=== PATIENT | male | born 1945 | race Caucasian/White ===

== ENCOUNTER 2018-10-28 20:36 | Emergency (ER) | payer MEDICARE, OTHER ==
[~2018-10-28] VITALS: Ht 172.7 cm; Wt 88.9 kg
--- NOTE | 2018-10-28 21:26 | ED Cardiac General ---
History of Present Illness General Chief Complaint: Cardiac/General Problems Stated Complaint: LOW BP Source: patient Exam Limitations: no limitations History of Present Illness Date Seen by Provider: Oct 28, 2018 Time Seen by Provider: 21:15 Initial Comments 73-year-old male with history of coronary disease, status post CABG several years ago, presents with concerns that his blood pressure is been running low at home. He has not had any weakness, chest pain, palpitations, visual or neurologic symptoms. He is not having blood pressure medication changes recently. He states his blood pressure cuff is old and may be inaccurate. Denies any significant edema or other symptoms. Allergies and Home Medications Allergies Uncoded Allergies: PENICILLIN (Allergy, Unknown, 10/28/18) Patient Home Medication List Home Medication List Reviewed: Yes Review of Systems Review of Systems Constitutional: no symptoms reported EENTM: No Symptoms Reported Respiratory: No Symptoms Reported, See HPI Cardiovascular: No Symptoms Reported, See HPI Gastrointestinal: No Symptoms Reported, See HPI Genitourinary: No Symptoms Reported, See HPI Psychiatric/Neurological: No Symptoms Reported, See HPI Endocrine: No Symptoms Reported, See HPI Hematologic/Lymphatic: No Symptoms Reported, See HPI Past Xftlbzb-Pawmlt-Iexqof Hx Past Med/Social Hx: Reviewed Nursing Past Med/Soc Hx Patient Social History Recent Foreign Travel: No Contact w/Someone Who Travel: No Physical Exam Vital Signs Vital Signs - First Documented 10/28/18 21:14 Temp 97.6 Pulse 77 Resp 8 B/P (MAP) 129/46 (73) Pulse Ox 96 O2 Delivery Room Air Capillary Refill : Height, Weight, BMI Height: '" Weight: lbs. oz. kg; BMI Method: General Appearance: No Apparent Distress, WD/WN HEENT: PERRL/EOMI, TMs Normal, Normal ENT Inspection, Pharynx Normal Neck: Full Range of Motion, Normal Inspection, Non Tender Respiratory: Chest Non Tender, Lungs Clear, Normal Breath Sounds, No Accessory Muscle Use, No Respiratory Distress Cardiovascular: Regular Rate, Rhythm, No Edema, No Gallop, No JVD, No Murmur, Normal Peripheral Pulses, Other (healed median sternotomy scar) Gastrointestinal: Normal Bowel Sounds, No Organomegaly, No Pulsatile Mass, Non Tender, Soft Extremity: Normal Capillary Refill, Normal Inspection, Normal Range of Motion, Non Tender, No Calf Tenderness, No Pedal Edema Neurologic/Psychiatric: Alert, Oriented x3, No Motor/Sensory Deficits, Normal Mood/Affect Skin: Normal Color, Warm/Dry Lymphatic: No Adenopathy Progress/Results/Core Measures Results/Orders Lab Results Laboratory Tests Test 10/28/18 21:35 Range/Units White Blood Count 5.8 4.3-11.0 10^3/uL Red Blood Count 3.27 L 4.35-5.85 10^6/uL Hemoglobin 11.1 L 13.3-17.7 G/DL Hematocrit 33 L 40-54 % Mean Corpuscular Volume 99 80-99 FL Mean Corpuscular Hemoglobin 34 25-34 PG Mean Corpuscular Hemoglobin Concent 34 32-36 G/DL Red Cell Distribution Width 13.2 10.0-14.5 % Platelet Count 307 130-400 10^3/uL Mean Platelet Volume 9.7 7.4-10.4 FL Neutrophils (%) (Auto) 34 L 42-75 % Lymphocytes (%) (Auto) 44 12-44 % Monocytes (%) (Auto) 15 H 0-12 % Eosinophils (%) (Auto) 6 0-10 % Basophils (%) (Auto) 1 0-10 % Neutrophils # (Auto) 2.0 1.8-7.8 X 10^3 Lymphocytes # (Auto) 2.5 1.0-4.0 X 10^3 Monocytes # (Auto) 0.9 0.0-1.0 X 10^3 Eosinophils # (Auto) 0.3 0.0-0.3 10^3/uL Basophils # (Auto) 0.1 0.0-0.1 10^3/uL Sodium Level 135 135-145 MMOL/L Potassium Level 4.3 3.6-5.0 MMOL/L Chloride Level 98 98-107 MMOL/L Carbon Dioxide Level 23 21-32 MMOL/L Anion Gap 14 5-14 MMOL/L Blood Urea Nitrogen 21 H 7-18 MG/DL Creatinine 1.27 0.60-1.30 MG/DL Estimat Glomerular Filtration Rate 55 BUN/Creatinine Ratio 17 Glucose Level 106 H 70-105 MG/DL Calcium Level 9.3 8.5-10.1 MG/DL Corrected Calcium 9.1 8.5-10.1 MG/DL Total Bilirubin 0.4 0.1-1.0 MG/DL Aspartate Amino Transf (AST/SGOT) 20 5-34 U/L Alanine Aminotransferase (ALT/SGPT) 11 0-55 U/L Alkaline Phosphatase 52 40-136 U/L Troponin T 16 H <=15 NG/L Pro-B-Type Natriuretic Peptide 740.0 H <75.0 PG/ML Total Protein 6.6 6.4-8.2 GM/DL Albumin 4.3 3.2-4.5 GM/DL My Orders Orders - SHEMAR PAUL MD Chest 1 View Ap/Pa Only (10/28/18 21:21) Ekg Tracing (10/28/18 21:21) Monitor-Rhythm Ecg Trace Only (10/28/18:) Cbc With Automated Diff (10/28/18:) Comprehensive Metabolic Panel (10/28/18:) Troponin T (10/28/18:) Probnp Fs (10/28/18:) Vital Signs/I&O 10/28/18 21:14 Temp 97.6 Pulse 77 Resp 8 B/P (MAP) 129/46 (73) Pulse Ox 96 O2 Delivery Room Air Progress Progress Note : Time: 21:25 Progress Note Initial blood pressure is unremarkable here. We'll obtain cardiac testing and closely monitor his blood pressure for any variations. I discussed plan with patient who understands and agrees. 8 patient's blood pressures remained unremarkable. I reviewed lab results with him. Due to his elevated BNP and not knowing that this is his chronic normal, I recommended admission. He declined this and understands the possible serious consequences of his decision. He is alert and oriented and capable of making this decision. Initial ECG Impression Date: Oct 28, 2018 Initial ECG Impression Time: 21:26 Initial ECG Rate: 77 Initial ECG Rhythm: Normal Sinus Initial ECG Intervals: Normal Initial ECG Comparisson: No Previous ECG Available Comment incomplete LBBB, nonspecific ST changes. PVCs noted, no couplets. JDO Diagnostic Imaging Diagonstic Imaging: Xray Plain Films/CT/US/NM/MRI: chest Comments CABG changes but no acute changes, per radiologist. Departure Impression Primary Impression: CAD (coronary artery disease) Qualified Codes: I25.810 - Atherosclerosis of coronary artery bypass graft(s) without angina pectoris Additional Impressions: Elevated brain natriuretic peptide (BNP) level Low blood pressure, not hypotension Low blood pressure reading Disposition: 01 HOME, SELF-CARE Condition: Stable Departure-Patient Inst. Decision time for Depature: 22:50 Referrals: NOHEMY HARRY HEARING EXAMINER (PCP/Family) Primary Care Physician Patient Instructions: Coronary Heart Disease (DC), CHF Add. Discharge Instructions: If your mind is changed about going to the hospital, please return. Be sure he follow up with your primary care in the next day or 2 as we discussed. All discharge instructions reviewed with patient and/or family. Voiced understanding. SHEMAR PAUL MD Oct 28, 2018 21:25
--- NOTE | 2018-10-28 21:58 | Diagnostic Imaging Report ---
EXAMINATION: Single view chest. INDICATION: Hypertension. FINDINGS: The patient is status post previous sternotomy and bypass grafting. Central pulmonary vascularity appears normal without evidence of failure. There is no consolidation or evidence of effusion. There is no pneumothorax. There is no acute or suspicious osseous abnormality. IMPRESSION: Previous operative changes of sternotomy and coronary artery bypass grafting. Pulmonary vascularity appears normal without evidence of failure. No acute cardiopulmonary process is evident. Dictated by: Dictated on workstation # [id number]
[2018-10-28 22:00] LABS: HEMOGLOBIN 11.1 G/DL (13.3-17.7); MEAN CORPUSCULAR HEMOGLOBIN 34 PG (25-34); WHITE BLOOD COUNT 5.8 10^3/uL (4.3-11.0)
[2018-10-28 22:01] LABS: BASOPHILS # (AUTO) 0.1 10^3/uL (0.0-0.1); BASOPHILS % (AUTO) 1 % (0-10); EOSINOPHILS # (AUTO) 0.3 10^3/uL (0.0-0.3); EOSINOPHILS % (AUTO) 6 % (0-10); HEMATOCRIT 33 % (40-54); LYMPHOCYTES # (AUTO) 2.5 X 10^3 (1.0-4.0); LYMPHOCYTES % (AUTO) 44 % (12-44); MEAN CORPUSCULAR HGB CONC 34 G/DL (32-36); MEAN CORPUSCULAR VOLUME 99 FL (80-99); MEAN PLATELET VOLUME 9.7 FL (7.4-10.4); MONOCYTES # (AUTO) 0.9 X 10^3 (0.0-1.0); MONOCYTES % (AUTO) 15 % (0-12); NEUTROPHILS % (AUTO) 34 % (42-75); PLATELET COUNT 307 10^3/uL (130-400); RED CELL DISTRIBUTION WIDTH 13.2 % (10.0-14.5)
--- OUTSIDE RECORDS SUMMARY | 2018-10-28 22:20 | XMS REPORT | Continuity of Care Document ---
Author Organization Unknown Address Unknown Allergies There is no data. Medications There is no data. Problems There is no data. Procedures There is no data. Results There is no data. Encounters ACCT No. Visit Date/Time Discharge Status Pt. Type Provider Facility Loc./Unit Complaint [id number] 10/11/2018 08:40:00 10/11/2018 23:59:59 CLS Outpatient [facility]
[2018-10-28 22:29] LABS: BILIRUBIN,TOTAL 0.4 MG/DL (0.1-1.0); CALCIUM 9.3 MG/DL (8.5-10.1); CREATININE SERUM 1.27 MG/DL (0.60-1.30); POTASSIUM 4.3 MMOL/L (3.6-5.0)
[2018-10-28 22:30] LABS: ALBUMIN 4.3 GM/DL (3.2-4.5); TOTAL PROTEIN 6.6 GM/DL (6.4-8.2)
[2018-10-28 23:00] VITALS: BP 134/60
== END 2018-10-28 23:00 | disposition home or self-care (01) ==
LOC: ER FS 20:43
DX: I25.10 Atherosclerotic heart disease of native coronary artery without angina pectoris (principal); R03.1 Nonspecific low blood-pressure reading; R79.89 Other specified abnormal findings of blood chemistry; Z95.1 Presence of aortocoronary bypass graft; Z88.0 Allergy status to penicillin
CPT/HCPCS: 36415; 71045; 80053; 83880; 84484; 85025; 93005; 93041

== ENCOUNTER 2018-11-02 08:46 | Emergency (ER) | payer MEDICARE, OTHER ==
[~2018-11-02] VITALS: Ht 172.7 cm; Wt 88.9 kg
--- OUTSIDE RECORDS SUMMARY | 2018-11-02 08:52 | XMS REPORT | Continuity of Care Document ---
Author Organization Unknown Address Unknown Allergies There is no data. Medications There is no data. Problems There is no data. Procedures There is no data. Results There is no data. Encounters ACCT No. Visit Date/Time Discharge Status Pt. Type Provider Facility Loc./Unit Complaint [id number] 11/01/2018 11:00:00 ACT Outpatient [facility]
[2018-11-02 09:21] VITALS: BP_SYST 124; BP_SYST 136; BP_SYST 143; BP_DIAS 64; BP_DIAS 67; BP_DIAS 71
[2018-11-02 09:27] LABS: BASOPHILS # (AUTO) 0.1 10^3/uL (0.0-0.1); BASOPHILS % (AUTO) 1 % (0-10); EOSINOPHILS # (AUTO) 0.3 10^3/uL (0.0-0.3); EOSINOPHILS % (AUTO) 5 % (0-10); HEMATOCRIT 36 % (40-54); LYMPHOCYTES # (AUTO) 2.2 X 10^3 (1.0-4.0); LYMPHOCYTES % (AUTO) 40 % (12-44); MEAN CORPUSCULAR HEMOGLOBIN 33 PG (25-34); MEAN CORPUSCULAR HGB CONC 34 G/DL (32-36); MEAN CORPUSCULAR VOLUME 99 FL (80-99); MEAN PLATELET VOLUME 9.6 FL (7.4-10.4); MONOCYTES # (AUTO) 0.7 X 10^3 (0.0-1.0); MONOCYTES % (AUTO) 13 % (0-12); NEUTROPHILS # (AUTO) 2.3 X 10^3 (1.8-7.8); NEUTROPHILS % (AUTO) 41 % (42-75); PLATELET COUNT 283 10^3/uL (130-400); WHITE BLOOD COUNT 5.6 10^3/uL (4.3-11.0)
[2018-11-02 09:41] LABS: BAND NEUTROPHILS 2 %; BASOPHILS % (MANUAL) 3 %; EOSINOPHILS % (MANUAL) 3 %; LYMPHOCYTES % (MANUAL) 49 %; MONOCYTES % (MANUAL) 6 %; NEUTROPHILS % (MANUAL) 37 %; RBC MORPH NORMAL
--- NOTE | 2018-11-02 09:45 | ED General ---
General Chief Complaint: General Problems/Pain Stated Complaint: LOW BP Nursing Triage Note: Pt arrived by private vehicle with chief complaint of low blood pressure. Pt stated he took his blood pressure this morning and was 140s/70s and then took it again and was 100/40, so he decided to come to ER. Pt was alert, oriented and ambulatory at [place]. Pt did not take his blood pressure medication this morning. Pt stated he felt fine. Pt stated he brought his medications, but when looking at meds they were in pill box. Called [facility] to have Nohemy Harry APRN's nurse call me about Patient's medications. Jada called and stated pt was taking Furosemide 20mg bid, lisinopril 10mg bid and coreg 6.25 daily. Pt stated this has been going on for 1.5 weeks. Nursing Sepsis Screen: No Definite Risk History of Present Illness Date Seen by Provider: Nov 02, 2018 Time Seen by Provider: 09:20 Initial Comments This is a 73 y/o m with pmhx of CAD, s/p remote CABG, HTN and CHF who presents to the ED concerned about his blood pressure. Takes Furosemide 20mg BID, Carvedilol 6.25 QD and Lisinopril 100mg BID. No recent medication changes. Routinely checks BP BID. Reports that blood pressure has periodically been low during routine checks (80-120 systolic) asymptomatic and on repeat is typically fine. Has been intermittently holding his Lisinopril. Was seen here on 10/28 with similar complaint. Advised to follow up with PCP and has not. No chest pain , no LE edema, no SOB, no dizziness, no generalized weakness. Allergies and Home Medications Allergies Uncoded Allergies: PENICILLIN (Allergy, Unknown, 10/28/18) Patient Home Medication List Home Medication List Reviewed: Yes Review of Systems Review of Systems Constitutional: No chills, No fever, No malaise, No weakness Respiratory: No cough, No short of breath, No wheezing Cardiovascular: No chest pain, No edema, No palpitations Gastrointestinal: No abdominal pain, No constipation, No diarrhea, No loss of appetite, No nausea, No vomiting Genitourinary: No dysuria, No frequency Musculoskeletal: No back pain, No joint pain, No muscle pain Skin: No pruritus, No rash Psychiatric/Neurological: Denies Headache Hematologic/Lymphatic: Denies Easy Bleeding All Other Systems Reviewed Negative Unless Noted: Yes (Negative excepted noted.) Past Mlxvuaw-Xfaioz-Fyfmjb Hx Patient Social History Alcohol Use: Denies Use Recreational Drug Use: No 2nd Hand Smoke Exposure: No Recent Foreign Travel: No Contact w/Someone Who Travel: No Recent Infectious Disease Expo: No Recent Hopitalizations: No Physical Abuse: No Sexual Abuse: No Mistreated: No Fear: No Seasonal Allergies Seasonal Allergies: Yes Past Medical History Surgeries: Yes CABG Respiratory: No Cardiac: Yes Heart Attack, High Cholesterol, Hypertension Neurological: No Genitourinary: No Gastrointestinal: No Musculoskeletal: No Endocrine: No HEENT: No Cancer: No Psychosocial: No Integumentary: No Blood Disorders: No Physical Exam Vital Signs Vital Signs - First Documented 11/02/18 09:08 Temp 98.0 Pulse 72 Resp 20 B/P (MAP) 144/75 (98) Pulse Ox 99 O2 Delivery Room Air Capillary Refill : Less Than 3 Seconds Height, Weight, BMI Height: 5'8.00" Weight: 196lbs. 0oz. [id number]; BMI Method:Stated General Appearance: No Apparent Distress, WD/WN HEENT: PERRL/EOMI Neck: Full Range of Motion, Normal Inspection Respiratory: Chest Non Tender, Normal Breath Sounds, No Accessory Muscle Use, No Respiratory Distress Cardiovascular: Regular Rate, Rhythm, No Edema, No JVD, No Murmur, Normal Peripheral Pulses Gastrointestinal: Normal Bowel Sounds, Non Tender, Soft Back: No Decreased Range of Motion Extremity: Normal Capillary Refill, Normal Range of Motion, No Pedal Edema Neurologic/Psychiatric: Alert, Oriented x3, No Motor/Sensory Deficits Skin: Normal Color Progress/Results/Core Measures Suspected Sepsis Recent Fever Within 48 Hours: No Infection Criteria Present: None New/Unexplained Altered Menta: No Sepsis Screen: No Definite Risk SIRS Temperature:98.0 Pulse: 82 Respiratory Rate: 20 Laboratory Tests 11/02/18 09:15: White Blood Count 5.6 Blood Pressure 143 /71 Mean: 95 Laboratory Tests 11/02/18 09:15: Creatinine 1.02, Platelet Count 283 Results/Orders Lab Results Laboratory Tests Test 11/02/18 09:15 Range/Units White Blood Count 5.6 4.3-11.0 10^3/uL Red Blood Count 3.59 L 4.35-5.85 10^6/uL Hemoglobin 12.0 L 13.3-17.7 G/DL Hematocrit 36 L 40-54 % Mean Corpuscular Volume 99 80-99 FL Mean Corpuscular Hemoglobin 33 25-34 PG Mean Corpuscular Hemoglobin Concent 34 32-36 G/DL Red Cell Distribution Width 13.0 10.0-14.5 % Platelet Count 283 130-400 10^3/uL Mean Platelet Volume 9.6 7.4-10.4 FL Neutrophils (%) (Auto) 41 L 42-75 % Lymphocytes (%) (Auto) 40 12-44 % Monocytes (%) (Auto) 13 H 0-12 % Eosinophils (%) (Auto) 5 0-10 % Basophils (%) (Auto) 1 0-10 % Neutrophils # (Auto) 2.3 1.8-7.8 X 10^3 Lymphocytes # (Auto) 2.2 1.0-4.0 X 10^3 Monocytes # (Auto) 0.7 0.0-1.0 X 10^3 Eosinophils # (Auto) 0.3 0.0-0.3 10^3/uL Basophils # (Auto) 0.1 0.0-0.1 10^3/uL Neutrophils % (Manual) 37 % Lymphocytes % (Manual) 49 % Monocytes % (Manual) 6 % Eosinophils % (Manual) 3 % Basophils % (Manual) 3 % Band Neutrophils 2 % Blood Morphology Comment NORMAL Sodium Level 139 135-145 MMOL/L Potassium Level 4.4 3.6-5.0 MMOL/L Chloride Level 100 98-107 MMOL/L Carbon Dioxide Level 21 21-32 MMOL/L Anion Gap 18 H 5-14 MMOL/L Blood Urea Nitrogen 15 7-18 MG/DL Creatinine 1.02 0.60-1.30 MG/DL Estimat Glomerular Filtration Rate > 60 BUN/Creatinine Ratio 15 Glucose Level 124 H 70-105 MG/DL Calcium Level 9.2 8.5-10.1 MG/DL My Orders Orders - SUE POWER DO Basic Metabolic Panel (11/02/18 09:04) Cbc And Manual Diff (11/02/18 09:04) Orthostatic Vital Signs (Adult (11/02/18 09:04) Vital Signs/I&O 11/02/18 11/02/18 09:08 09:21 Temp 98.0 Pulse 72 67 70 82 Resp 20 B/P (MAP) 144/75 (98) 136/64 (88) 124/67 (86) 143/71 (95) Pulse Ox 99 O2 Delivery Room Air Capillary Refill : Less Than 3 Seconds Blood Pressure Mean: 95 Progress Note : Time: 10:00 Progress Note Reassuring blood pressure in the ED including orthostatics. Suspect pt could be tapered down on home medications but limited data. Unclear why he is on Lisinopril BID. Advised switching to PRN QD use. Strongly encouraged close PCP follow up for continued management of BP medications. Labs reassuring with findings indicating acute life-threatening pathology. ER return precautions given. Pt verbalized understanding. All questions answered. Departure Impression Primary Impression: Hypotension, unspecified Disposition: HOME, SELF-CARE Condition: Stable Departure-Patient Inst. Decision time for Depature: 10:00 Referrals: NOHEMY HARRY APRN (PCP) Primary Care Physician [facility] (Family) Primary Care Physician Patient Instructions: Low Blood Pressure (DC) Add. Discharge Instructions: Please read the attached handout. Please STOP YOUR MORNING DOSE OF LISINOPRIL. GET A NEW BLOOD PRESSURE CUFF. CHECK YOUR BLOOD PRESSURE ONLY ONCE A DAY IN THE EVENING AND LOG IT. IF TOP NUMBER IS 150 OR HIGHER TAKE LISINOPRIL 10mg. FOLLOW UP WITH YOUR ARPN ON MONDAY OR MONDAY FOR MORE EVALUATION. All discharge instructions reviewed with patient and/or family. Voiced understanding. SUE POWER DO Nov 02, 2018 09:45
[2018-11-02 09:54] LABS: BUN/CREATININE RATIO 15; CALCIUM 9.2 MG/DL (8.5-10.1); CARBON DIOXIDE 21 MMOL/L (21-32); CHLORIDE 100 MMOL/L (98-107); CREATININE SERUM 1.02 MG/DL (0.60-1.30); GFR ESTIMATED > 60; GLUCOSE 124 MG/DL (70-105); POTASSIUM 4.4 MMOL/L (3.6-5.0); SODIUM 139 MMOL/L (135-145)
[2018-11-02 10:08] VITALS: BP 147/65
== END 2018-11-02 10:08 | disposition home or self-care (01) ==
LOC: EDUNIT# 08:46 → ER FS 08:48
DX: I95.9 Hypotension, unspecified (principal); I25.10 Atherosclerotic heart disease of native coronary artery without angina pectoris; I11.0 Hypertensive heart disease with heart failure; I50.9 Heart failure, unspecified; I25.2 Old myocardial infarction; E78.00 Pure hypercholesterolemia, unspecified; Z95.1 Presence of aortocoronary bypass graft; Z88.0 Allergy status to penicillin
CPT/HCPCS: 36415; 80048; 85007; 85027

== ENCOUNTER 2019-06-10 13:18 | Emergency (ER) | payer MEDICARE, OTHER ==
[~2019-06-10] VITALS: Ht 172 cm; Wt 80.4 kg
[~2019-06-10 13:18] MED LIST: ACET-93 PO; ASPI81TA16 PO; CALC-65 PO; CARV6.252 PO; CETI10TA17 PO; CYCL5TAB PO; FURO20TA4 PO; LATA7.5D OU; LISI-552 PO; MAGN400T6 PO; MELO7.5T46 PO; OMG1KC PO; POTA10TA17 PO; SIMV20TA3 PO
--- NOTE | 2019-06-10 13:44 | ED Cardiac General ---
History of Present Illness General Chief Complaint: Cardiac/General Problems Stated Complaint: HIGH BP Nursing Triage Note: Patient states he took his blood pressure at home and it was 160/90. He took two of his 10 mg lisinopril instead of 1 this morning to try and get it down. He denies shortness of breath, dizziness, headache, or any symptoms associated with the high blood pressure. Source: patient Exam Limitations: no limitations History of Present Illness Date Seen by Provider: Jun 10, 2019 Time Seen by Provider: 13:35 Initial Comments took his BP at home and elevated......160/90. Took an extra 10mg Lisinopril @ noon (normally takes bid). Asymptomatic. Feels fine. Normally checks BP every morning and is typically 140/ ? Allergies and Home Medications Allergies Coded Allergies: Penicillins (Unverified Allergy, Unknown, 05/20/19) Home Medications Acetaminophen 500 Mg Tablet, 500-1,000 MG PO Q8H PRN for PAIN-MILD (0-3), (Reported) Aspirin 81 Mg Tablet.dr, 81 MG PO DAILY, (Reported) Calcium/Vit B12/FA/Pyridoxine 1 Each Tablet, 400 MCG PO DAILY, (Reported) Carvedilol 6.25 Mg Tablet, 6.25 MG PO DAILY, (Reported) Cetirizine HCl 10 Mg Tablet, 10 MG PO HS, (Reported) Cyclobenzaprine HCl 5 Mg Tablet, 5 MG PO TID PRN for SPASMS, (Reported) Furosemide 20 Mg Tablet, 20 MG PO BID, (Reported) Latanoprost/Pf 7.5 Ml Drops, 1 DROP OU DAILY, (Reported) Lisinopril 20 Mg Tablet, 20 MG PO DAILY PRN for BLOOD PRESSURE, (Reported) ONLY USES WHEN HE HAS HIGH BLOOD PRESSURE Magnesium Oxide 400 Mg Tablet, 400 MG PO DAILY, (Reported) Meloxicam 7.5 Mg Tablet, 7.5 MG PO DAILY, (Reported) [place] 3 Polyunsat Fatty Acids 1,000 Mg Cap, 2,000 MG PO DAILY, (Reported) Potassium Citrate 10 Meq Tablet.er, 10 MEQ PO TIDWM, (Reported) Simvastatin 20 Mg Tablet, 20 MG PO DAILY, (Reported) Patient Home Medication List Home Medication List Reviewed: Yes Review of Systems Review of Systems Constitutional: no symptoms reported; No fever, No malaise, No weakness Respiratory: No Symptoms Reported; Denies Cough, Denies Orthopnea, Denies Shortness of Air Cardiovascular: No Symptoms Reported, See HPI; Denies Chest Pain, Denies Edema, Denies Irregular Heart Rate, Denies Lightheadedness, Denies Palpitations, Denies Syncope Gastrointestinal: Denies Abdominal Pain, Denies Poor Appetite Musculoskeletal: No back pain, No joint pain, No neck pain Endocrine: Denies Excessive Sweating, Denies Intolerance to Cold, Denies Intolerance to Heat, Denies Increased Hunger, Denies Increased Thrist Past Gwwyvbs-Xghfdx-Mthcpm Hx Past Med/Social Hx: Reviewed Nursing Past Med/Soc Hx Patient Social History Alcohol Use: Denies Use Recreational Drug Use: No Smoking Status: Never a Smoker 2nd Hand Smoke Exposure: No Recent Foreign Travel: No Contact w/Someone Who Travel: No Recent Infectious Disease Expo: No Recent Hopitalizations: No Physical Abuse: No Sexual Abuse: No Mistreated: No Fear: No Immunizations Up To Date Date of Pneumonia Vaccine: May 08, 2019 Seasonal Allergies Seasonal Allergies: Yes Past Medical History Surgeries: Yes CABG Respiratory: No Cardiac: Yes Heart Attack, High Cholesterol, Hypertension Neurological: No Genitourinary: No Gastrointestinal: No Musculoskeletal: No Endocrine: No HEENT: No Cancer: No Psychosocial: No Integumentary: No Blood Disorders: No Physical Exam Vital Signs Vital Signs - First Documented 06/10/19 13:28 Temp 36.1 Pulse 79 Resp 18 B/P (MAP) 175/95 (121) Pulse Ox 98 Capillary Refill : Less Than 3 Seconds Height, Weight, BMI Height: 5'8.00" Weight: 196lbs. 0oz. [id number]; 27.00 BMI Method:Stated General Appearance: No Apparent Distress, WD/WN Neck: Full Range of Motion, Normal Inspection, Non Tender Respiratory: Chest Non Tender, Lungs Clear Cardiovascular: Regular Rate, Rhythm, No Edema, No JVD Gastrointestinal: Non Tender, Soft; No Distended, No Guarding Extremity: Normal Capillary Refill, Normal Inspection, Non Tender Neurologic/Psychiatric: Alert, Oriented x3, No Motor/Sensory Deficits, Normal Mood/Affect Skin: Normal Color, Warm/Dry Progress/Results/Core Measures Results/Orders Vital Signs/I&O 06/10/19 13:28 Temp 36.1 Pulse 79 Resp 18 B/P (MAP) 175/95 (121) Pulse Ox 98 Blood Pressure Mean: 121 POS Departure Impression Primary Impression: Hypertension Qualified Codes: I10 - Essential (primary) hypertension Disposition: 01 HOME, SELF-CARE Condition: Improved Departure-Patient Inst. Decision time for Depature: 13:45 Referrals: JOSÉ MANUEL HUERTAS MD (PCP) Primary Care Physician NOHEMY HARRY APRN (Family) Primary Care Physician Patient Instructions: High Blood Pressure in Adults SUE FARRIS DO Jun 10, 2019 13:44 POS
[2019-06-10 14:07] VITALS: BP 149/65
--- OUTSIDE RECORDS SUMMARY | 2019-07-05 10:48 | XMS REPORT | Continuity of Care Document ---
Author Organization Unknown Address Unknown Phone Unavailable Allergies Active Description Code Type Severity Reaction Onset Reported/Identified Relationship to Patient Clinical Status Yes PENICILLIN PENICILLIN Unknown N/A 10/28/2018 Yes Penicillins [id number] Drug Aller gy Unknown N/A 05/20/2019 Medications There is no data. Problems Date Dx Coded Attending Type Code Diagnosis Diagnosed By 10/28/2018 SHEMAR PAUL MD, Ot I25.10 ATHSCL HEART DISEASE OF [place] CORONARY 10/28/2018 SHEMAR PAUL MD Ot R03.1 NONSPECIFIC LOW BLOOD-PRESSURE READING 10/28/2018 SHEMAR PAUL MD Ot R79.89 OTHER SPECIFIED ABNORMAL FINDINGS OF BLO 10/28/2018 SHEMAR PAUL MD Ot Z88.0 ALLERGY STATUS TO PENICILLIN 10/28/2018 SHEMAR PAUL MD Ot Z95.1 PRESENCE OF AORTOCORONARY BYPASS GRAFT 10/31/2018 SHEMAR PAUL MD Ot I25.10 ATHSCL HEART DISEASE OF [place] CORONARY 10/31/2018 SHEMAR PAUL MD Ot R03.1 NONSPECIFIC LOW BLOOD-PRESSURE READING 10/31/2018 SHEMAR PAUL MD Ot R79.89 OTHER SPECIFIED ABNORMAL FINDINGS OF BLO 10/31/2018 SHEMAR PAUL MD Ot Z88.0 ALLERGY STATUS TO PENICILLIN 10/31/2018 SHEMAR PAUL MD Ot Z95.1 PRESENCE OF AORTOCORONARY BYPASS GRAFT 10/31/2018 SHEMAR PAUL MD Ot I25.10 ATHSCL HEART DISEASE OF [place] CORONARY 10/31/2018 SHEMAR PAUL MD Ot R03.1 NONSPECIFIC LOW BLOOD-PRESSURE READING 10/31/2018 SHEMAR PAUL MD Ot R79.89 OTHER SPECIFIED ABNORMAL FINDINGS OF BLO 10/31/2018 SHEMAR PAUL MD Ot Z88.0 ALLERGY STATUS TO PENICILLIN 10/31/2018 SHEMAR PAUL MD Ot Z95.1 PRESENCE OF AORTOCORONARY BYPASS GRAFT 11/02/2018 SUE POEWR DO Ot E78.00 PURE HYPERCHOLESTEROLEMIA, UNSPECIFIED 11/02/2018 KEITHLY DO, SUE T Ot I11.0 HYPERTENSIVE HEART DISEASE WITH HEART FA 11/02/2018 KEITHLY DO, SUE T Ot I25.10 ATHSCL HEART DISEASE OF [place] CORONARY 11/02/2018 KEITHLY DO, SUE T Ot I25.2 OLD MYOCARDIAL INFARCTION 11/02/2018 KEITHLY DO, SUE T Ot I50.9 HEART FAILURE, UNSPECIFIED 11/02/2018 KEITHLY DO, SUE T Ot I95.9 HYPOTENSION, UNSPECIFIED 11/02/2018 KEITHLY DO, SUE T Ot R03.0 ELEVATED BLOOD-PRESSURE READING, W/O DIDI 11/02/2018 KEITHLY DO, SUE T Ot Z88.0 ALLERGY STATUS TO PENICILLIN 11/02/2018 KEITHLY DO, SUE T Ot Z95.1 PRESENCE OF AORTOCORONARY BYPASS GRAFT 11/05/2018 KEITHLY DO, SUE T Ot E78.00 PURE HYPERCHOLESTEROLEMIA, UNSPECIFIED 11/05/2018 KEITHLY DO, SUE T Ot I11.0 HYPERTENSIVE HEART DISEASE WITH HEART FA 11/05/2018 KEITHLY DO, SUE T Ot I25.10 ATHSCL HEART DISEASE OF [place] CORONARY 11/05/2018 KEITHLY DO, SUE T Ot I25.2 OLD MYOCARDIAL INFARCTION 11/05/2018 KEITHLY DO, SUE T Ot I50.9 HEART FAILURE, UNSPECIFIED 11/05/2018 KEITHLY DO, SUE T Ot I95.9 HYPOTENSION, UNSPECIFIED 11/05/2018 KEITHLY DO, SUE T Ot R03.0 ELEVATED BLOOD-PRESSURE READING, W/O DIDI 11/05/2018 KEITHLY DO, SUE T Ot Z88.0 ALLERGY STATUS TO PENICILLIN 11/05/2018 KEITHLY DO, SUE T Ot Z95.1 PRESENCE OF AORTOCORONARY BYPASS GRAFT 05/21/2019 JEFFRY SPARKS MD Ot 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[place] 05/21/2019 JEFFRY SPARKS MD Ot E78 .5 HYPERLIPIDEMIA, UNSPECIFIED 05/21/2019 JEFFRY SPARKS MD Ot E87 .1 HYPO-OSMOLALITY AND HYPONATREMIA 05/21/2019 JEFFRY SPARKS MD Ot I10 ESSENTIAL (PRIMARY) HYPERTENSION 05/21/2019 JEFFRY SPARKS MD Ot I25.10 ATHSCL HEART DISEASE OF [place] CORONARY 05/21/2019 JFEFRY SPARKS MD Ot I25 .2 OLD MYOCARDIAL INFARCTION 05/21/2019 JEFFRY SPARKS MD Ot R00 .1 BRADYCARDIA, UNSPECIFIED 05/21/2019 JEFFRY SPARKS MD Ot Z95 .1 PRESENCE OF AORTOCORONARY BYPASS GRAFT 05/23/2019 JEFFRY SPARKS MD Ot 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[place] 05/23/2019 JEFFRY SPARKS MD Ot E78 .5 HYPERLIPIDEMIA, UNSPECIFIED 05/23/2019 JEFFRY SPARKS MD Ot E87 .1 HYPO-OSMOLALITY AND HYPONATREMIA 05/23/2019 JEFFRY SPARKS MD Ot I10 ESSENTIAL (PRIMARY) HYPERTENSION 05/23/2019 JEFFRY SPARKS MD Ot I25.10 ATHSCL HEART DISEASE OF [place] CORONARY 05/23/2019 JEFFRY SPARKS MD Ot I25 .2 OLD MYOCARDIAL INFARCTION 05/23/2019 JEFFRY SPARKS MD Ot R00 .1 BRADYCARDIA, UNSPECIFIED 05/23/2019 JEFFRY SPARKS MD Ot Z95 .1 PRESENCE OF AORTOCORONARY BYPASS GRAFT 05/23/2019 JEFFRY SPARKS MD Ot 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[place] 05/23/2019 JEFFRY SPARKS MD Ot E78 .5 HYPERLIPIDEMIA, UNSPECIFIED 05/23/2019 JEFFRY SPARKS MD Ot E87 .1 HYPO-OSMOLALITY AND HYPONATREMIA 05/23/2019 JEFFRY SPARKS MD Ot I10 ESSENTIAL (PRIMARY) HYPERTENSION 05/23/2019 JEFFRY SPARKS MD Ot I25.10 ATHSCL HEART DISEASE OF [place] CORONARY 05/23/2019 JEFFRY SPARKS MD Ot I25 .2 OLD MYOCARDIAL INFARCTION 05/23/2019 JEFFRY SPARKS MD Ot R00 .1 BRADYCARDIA, UNSPECIFIED 05/23/2019 JEFFRY SPARKS MD Ot Z95 .1 PRESENCE OF AORTOCORONARY BYPASS GRAFT 05/23/2019 JEFFRY SPARKS MD Ot 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[place] 05/23/2019 JEFFRY SPARKS MD Ot E78 .5 HYPERLIPIDEMIA, UNSPECIFIED 05/23/2019 JEFFRY SPARKS MD Ot E87 .1 HYPO-OSMOLALITY AND HYPONATREMIA 05/23/2019 JEFFRY SPARKS MD Ot I10 ESSENTIAL (PRIMARY) HYPERTENSION 05/23/2019 JEFFRY SPARKS MD Ot I25.10 ATHSCL HEART DISEASE OF [place] CORONARY 05/23/2019 JEFFRY SPARKS MD Ot I25 .2 OLD MYOCARDIAL INFARCTION 05/23/2019 JEFFRY SPARKS MD Ot R00 .1 BRADYCARDIA, UNSPECIFIED 05/23/2019 JEFFRY SPARKS MD Ot Z95 .1 PRESENCE OF AORTOCORONARY BYPASS GRAFT 05/23/2019 JEFFRY SPARKS MD Ot 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[place] 05/23/2019 JEFFRY SPARKS MD Ot E78 .5 HYPERLIPIDEMIA, UNSPECIFIED 05/23/2019 JEFRFY SPARKS MD Ot E87 .1 HYPO-OSMOLALITY AND HYPONATREMIA 05/23/2019 JEFFRY SPARKS MD Ot I10 ESSENTIAL (PRIMARY) HYPERTENSION 05/23/2019 JEFFRY SPARKS MD Ot I25.10 ATHSCL HEART DISEASE OF [place] CORONARY 05/23/2019 JEFFRY SPARKS MD Ot I25 .2 OLD MYOCARDIAL INFARCTION 05/23/2019 JEFFRY SPARKS MD Ot R00 .1 BRADYCARDIA, UNSPECIFIED 05/23/2019 JEFFRY SPARKS MD Ot Z95 .1 PRESENCE OF AORTOCORONARY BYPASS GRAFT 06/15/2019 ROVENSTINE DOMAURISIOEN Taryn Ot E78.00 PURE HYPERCHOLESTEROLEMIA, UNSPECIFIED 06/15/2019 ROVENSTINE DO SUE L Ot I10 ESSENTIAL (PRIMARY) HYPERTENSION 06/15/2019 ROVENSTINE DOMAURISIOEN L Ot I25.2 OLD MYOCARDIAL INFARCTION 06/15/2019 ROVENSTINE DOMAURISIOEN L Ot 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 Results Test Result Range Complete blood count (CBC) with automate d white blood cell (WBC) differential - 10/28/18 21:35 Blood leukocytes automated count (number/volume) 5.8 10*3/uL 4.3-11.0 Blood erythrocytes automated count (number/volume) 3.27 10*6/uL 4.35-5.85 Venous blood hemoglobin measurement (mass/volume) 11.1 g/dL 13.3-17.7 Blood hematocrit (volume fraction) 33 % 40-54 Automated erythrocyte mean corpuscular volume 99 [ foz_us] 80-99 Automated erythrocyte mean corpuscular h emoglobin (mass per erythrocyte) 34 pg 25-34 Automated erythrocyte mean corpuscular h emoglobin concentration measurement (mass/volume) 34 g/dL 32-36 Automated erythrocyte distribution width ratio 13. 2 % 10.0- 14.5 Automated blood platelet count (count/volume) 307 10*3/uL 130-400 Automated blood platelet mean volume measurement 9.7 [foz_us] 7.4-10.4 Automated blood neutrophils/100 leukocytes 34 % 42-75 Automated blood lymphocytes/100 leukocytes 44 % 12-44 Blood monocytes/100 leukocytes 15 % 0-12 Automated blood eosinophils/100 leukocytes 6 % 0-10 Automated blood basophils/100 leukocytes 1 % 0-10 Blood neutrophils automated count (number/volume) 2.0 10*3 1.8-7.8 Blood lymphocytes automated count (number/volume) 2.5 10*3 1.0-4.0 Blood monocytes automated count (number/volume) 0. 9 10*3 0.0-1.0 Automated eosinophil count 0.3 10*3/uL 0 .0-0.3 Automated blood basophil count (count/volume) 0.1 10*3/uL 0.0-0.1 Comprehensive metabolic panel - 10/28/18 21:35 Serum or plasma sodium measurement (moles/volume) 135 mmol/L 135-145 Serum or plasma potassium measurement (moles/volume) 4.3 mmol/L 3.6-5.0 Serum or plasma chloride measurement (moles/volume) 98 mmol/L 98-107 Carbon dioxide 23 mmol/L 21-32 Serum or plasma anion gap determination (moles/volume) 14 mmol/L 5-14 Serum or plasma urea nitrogen measurement (mass/volume ) 21 mg/dL 7-18 Serum or plasma creatinine measurement (mass/volume) 1.27 mg/dL 0.60-1.30 Serum or plasma urea nitrogen/creatinine mass ratio 17 NRG Serum or plasma creatinine measurement w ith calculation of estimated glomerular filtration rate 55 NRG Serum or plasma glucose measurement (mass/volume) 106 mg/dL 70-105 Serum or plasma calcium measurement (mass/volume) 9.3 mg/dL 8.5-10.1 Serum or plasma total bilirubin measurement (mass/volu me) 0.4 mg/dL 0.1-1.0 Serum or plasma alkaline phosphatase ami surement (enzymatic activity/volume) 52 U/L 40-136 Serum or plasma aspartate aminotransfera se measurement (enzymatic activity/volume) 20 U/L 5-34 Serum or plasma alanine aminotransferase measurement (enzymatic activity/volume) 11 U/L 0-55 Serum or plasma protein measurement (mass/volume) 6.6 g/dL 6.4-8.2 Serum or plasma albumin measurement (mass/volume) 4.3 g/dL 3.2-4.5 CALCIUM CORRECTED 9.1 mg/dL 8.5-10.1 TROPONIN T - 10/28/18 21:35 TROPONIN T 16 % <=15 PROBNP FS - 10/28/18 21:35 PROBNP FS 740.0 pg/mL <75.0 Blood CBC with ordered manual differenti al panel - 11/02/18 09:15 Blood leukocytes automated count (number/volume) 5.6 10*3/uL 4.3-11.0 Blood erythrocytes automated count (number/volume) 3.59 10*6/uL 4.35-5.85 Venous blood hemoglobin measurement (mass/volume) 12.0 g/dL 13.3-17.7 Blood hematocrit (volume fraction) 36 % 40-54 Automated erythrocyte mean corpuscular volume 99 [ foz_us] 80-99 Automated erythrocyte mean corpuscular h emoglobin (mass per erythrocyte) 33 pg 25-34 Automated erythrocyte mean corpuscular h emoglobin concentration measurement (mass/volume) 34 g/dL 32-36 Automated erythrocyte distribution width ratio 13. 0 % 10.0- 14.5 Automated blood platelet count (count/volume) 283 10*3/uL 130-400 Automated blood platelet mean volume measurement 9.6 [foz_us] 7.4-10.4 Automated blood neutrophils/100 leukocytes 41 % 42-75 Automated blood lymphocytes/100 leukocytes 40 % 12-44 Blood monocytes/100 leukocytes 6 % NRG Automated blood eosinophils/100 leukocytes 5 % 0-10 Automated blood basophils/100 leukocytes 1 % 0-10 Blood neutrophils automated count (number/volume) 2.3 10*3 1.8-7.8 Blood lymphocytes automated count (number/volume) 2.2 10*3 1.0-4.0 Blood monocytes automated count (number/volume) 0. 7 10*3 0.0-1.0 Automated eosinophil count 0.3 10*3/uL 0 .0-0.3 Automated blood basophil count (count/volume) 0.1 10*3/uL 0.0-0.1 Manual blood segmented neutrophils/100 leukocytes 37 % NRG Blood band neutrophils/100 leukocytes 2 % NRG Manual blood lymphocytes/100 leukocytes 49 % NRG Manual eosinophils/100 leukocytes in nose 3 % NRG Manual blood basophils/100 leukocytes 3 % NRG Blood erythrocyte morphology finding identification NORMAL NRG Whole blood basic metabolic panel - 10/09 12/26 09:15 Serum or plasma sodium measurement (moles/volume) 139 mmol/L 135-145 Serum or plasma potassium measurement (moles/volume) 4.4 mmol/L 3.6-5.0 Serum or plasma chloride measurement (moles/volume) 100 mmol/L 98-107 Carbon dioxide 21 mmol/L 21-32 Serum or plasma anion gap determination (moles/volume) 18 mmol/L 5-14 Serum or plasma urea nitrogen measurement (mass/volume ) 15 mg/dL 7-18 Serum or plasma creatinine measurement (mass/volume) 1.02 mg/dL 0.60-1.30 Serum or plasma urea nitrogen/creatinine mass ratio 15 NRG Serum or plasma creatinine measurement w ith calculation of estimated glomerular filtration rate > NRG Serum or plasma glucose measurement (mass/volume) 124 mg/dL 70-105 Serum or plasma calcium measurement (mass/volume) 9.2 mg/dL 8.5-10.1 A1C - 01/09/19 07:57 HEMOGLOBIN A1c 5.7 % of total Hgb <5.7 Complete blood count (CBC) with automate d white blood cell (WBC) differential - 05/18/19 21:15 Blood leukocytes automated count (number/volume) 6.3 10*3/uL 4.3-11.0 Blood erythrocytes automated count (number/volume) 3.77 10*6/uL 4.35-5.85 Venous blood hemoglobin measurement (mass/volume) 12.4 g/dL 13.3-17.7 Blood hematocrit (volume fraction) 35 % 40-54 Automated erythrocyte mean corpuscular volume 94 [ foz_us] 80-99 Automated erythrocyte mean corpuscular h emoglobin (mass per erythrocyte) 33 pg 25-34 Automated erythrocyte mean corpuscular h emoglobin concentration measurement (mass/volume) 35 g/dL 32-36 Automated erythrocyte distribution width ratio 13. 9 % 10.0- 14.5 Automated blood platelet count (count/volume) 185 10*3/uL 130-400 Automated blood platelet mean volume measurement 10.1 [foz_us] 7.4-10.4 Automated blood neutrophils/100 leukocytes 35 % 42-75 Automated blood lymphocytes/100 leukocytes 43 % 12-44 Blood monocytes/100 leukocytes 10 % 0-12 Automated blood eosinophils/100 leukocytes 10 % 0-10 Automated blood basophils/100 leukocytes 1 % 0-10 Blood neutrophils automated count (number/volume) 2.2 10*3 1.8-7.8 Blood lymphocytes automated count (number/volume) 2.7 10*3 1.0-4.0 Blood monocytes automated count (number/volume) 0. 7 10*3 0.0-1.0 Automated eosinophil count 0.6 10*3/uL 0 .0-0.3 Automated blood basophil count (count/volume) 0.1 10*3/uL 0.0-0.1 Whole blood basic metabolic panel - 03/28 21:15 Serum or plasma sodium measurement (moles/volume) 122 mmol/L 135-145 Serum or plasma potassium measurement (moles/volume) 4.2 mmol/L 3.6-5.0 Serum or plasma chloride measurement (moles/volume) 84 mmol/L 98-107 Carbon dioxide 27 mmol/L 21-32 Serum or plasma anion gap determination (moles/volume) 11 mmol/L 5-14 Serum or plasma urea nitrogen measurement (mass/volume ) 18 mg/dL 7-18 Serum or plasma creatinine measurement (mass/volume) 0.94 mg/dL 0.60-1.30 Serum or plasma urea nitrogen/creatinine mass ratio 19 NRG Serum or plasma creatinine measurement w ith calculation of estimated glomerular filtration rate > NRG Serum or plasma glucose measurement (mass/volume) 100 mg/dL 70-105 Serum or plasma calcium measurement (mass/volume) 9.1 mg/dL 8.5-10.1 TROPONIN I FS - 05/18/19 21:15 TROPONIN I FS < 0.30 <0.30 Whole blood basic metabolic panel - 05/10 05:41 Serum or plasma sodium measurement (moles/volume) 124 mmol/L 135-145 Serum or plasma potassium measurement (moles/volume) 4.0 mmol/L 3.6-5.0 Serum or plasma chloride measurement (moles/volume) 92 mmol/L 98-107 Carbon dioxide 21 mmol/L 21-32 Serum or plasma anion gap determination (moles/volume) 11 mmol/L 5-14 Serum or plasma urea nitrogen measurement (mass/volume ) 14 mg/dL 7-18 Serum or plasma creatinine measurement (mass/volume) 0.79 mg/dL 0.60-1.30 Serum or plasma urea nitrogen/creatinine mass ratio 18 NRG Serum or plasma creatinine measurement w ith calculation of estimated glomerular filtration rate > NRG Serum or plasma glucose measurement (mass/volume) 81 mg/dL 70-105 Serum or plasma calcium measurement (mass/volume) 8.5 mg/dL 8.5-10.1 ELECTROLYTES URINE RANDOM - 05/19/19 08: 08 [id number] 15 % NRG U CHLORIDE 111 % NRG Complete blood count (CBC) with automate d white blood cell (WBC) differential - 05/20/19 05:00 Blood leukocytes automated count (number/volume) 4.8 10*3/uL 4.3-11.0 Blood erythrocytes automated count (number/volume) 3.85 10*6/uL 4.35-5.85 Venous blood hemoglobin measurement (mass/volume) 12.6 g/dL 13.3-17.7 Blood hematocrit (volume fraction) 35 % 40-54 Automated erythrocyte mean corpuscular volume 91 [ foz_us] 80-99 Automated erythrocyte mean corpuscular h emoglobin (mass per erythrocyte) 33 pg 25-34 Automated erythrocyte mean corpuscular h emoglobin concentration measurement (mass/volume) 36 g/dL 32-36 Automated erythrocyte distribution width ratio 14. 2 % 10.0- 14.5 Automated blood platelet count (count/volume) 174 10*3/uL 130-400 Automated blood platelet mean volume measurement 10.1 [foz_us] 7.4-10.4 Automated blood neutrophils/100 leukocytes 34 % 42-75 Automated blood lymphocytes/100 leukocytes 42 % 12-44 Blood monocytes/100 leukocytes 12 % 0-12 Automated blood eosinophils/100 leukocytes 11 % 0-10 Automated blood basophils/100 leukocytes 1 % 0-10 Blood neutrophils automated count (number/volume) 1.6 10*3 1.8-7.8 Blood lymphocytes automated count (number/volume) 2.0 10*3 1.0-4.0 Blood monocytes automated count (number/volume) 0. 6 10*3 0.0-1.0 Automated eosinophil count 0.5 10*3/uL 0 .0-0.3 Automated blood basophil count (count/volume) 0.0 10*3/uL 0.0-0.1 Comprehensive metabolic panel - 05/20/19 05:00 Serum or plasma sodium measurement (moles/volume) 123 mmol/L 135-145 Serum or plasma potassium measurement (moles/volume) 4.0 mmol/L 3.6-5.0 Serum or plasma chloride measurement (moles/volume) 95 mmol/L 98-107 Carbon dioxide 21 mmol/L 21-32 Serum or plasma anion gap determination (moles/volume) 7 mmol/L 5-14 Serum or plasma urea nitrogen measurement (mass/volume ) 12 mg/dL 7-18 Serum or plasma creatinine measurement (mass/volume) 0.73 mg/dL 0.60-1.30 Serum or plasma urea nitrogen/creatinine mass ratio 16 NRG Serum or plasma creatinine measurement w ith calculation of estimated glomerular filtration rate > NRG Serum or plasma glucose measurement (mass/volume) 88 mg/dL 70-105 Serum or plasma calcium measurement (mass/volume) 8.0 mg/dL 8.5-10.1 Serum or plasma total bilirubin measurement (mass/volu me) 0.6 mg/dL 0.1-1.0 Serum or plasma alkaline phosphatase ami surement (enzymatic activity/volume) 43 U/L 40-136 Serum or plasma aspartate aminotransfera se measurement (enzymatic activity/volume) 18 U/L 5-34 Serum or plasma alanine aminotransferase measurement (enzymatic activity/volume) 13 U/L 0-55 Serum or plasma protein measurement (mass/volume) 5.6 g/dL 6.4-8.2 Serum or plasma albumin measurement (mass/volume) 3.6 g/dL 3.2-4.5 CALCIUM CORRECTED 8.3 mg/dL 8.5-10.1 Whole blood basic metabolic panel - 05/10 07/28 15:40 Serum or plasma sodium measurement (moles/volume) 123 mmol/L 135-145 Serum or plasma potassium measurement (moles/volume) 4.1 mmol/L 3.6-5.0 Serum or plasma chloride measurement (moles/volume) 95 mmol/L 98-107 Carbon dioxide 24 mmol/L 21-32 Serum or plasma anion gap determination (moles/volume) 4 mmol/L 5-14 Serum or plasma urea nitrogen measurement (mass/volume ) 13 mg/dL 7-18 Serum or plasma creatinine measurement (mass/volume) 0.77 mg/dL 0.60-1.30 Serum or plasma urea nitrogen/creatinine mass ratio 17 NRG Serum or plasma creatinine measurement w ith calculation of estimated glomerular filtration rate > NRG Serum or plasma glucose measurement (mass/volume) 87 mg/dL 70-105 Serum or plasma calcium measurement (mass/volume) 8.0 mg/dL 8.5-10.1 Serum or plasma sodium measurement (mole s/volume) - 05/20/19 16:52 Serum or plasma sodium measurement (moles/volume) 125 mmol/L 135-145 Serum or plasma sodium measurement (mole s/volume) - 05/20/19 18:33 Serum or plasma sodium measurement (moles/volume) 126 mmol/L 135-145 Serum or plasma sodium measurement (mole s/volume) - 05/20/19 23:00 Serum or plasma sodium measurement (moles/volume) 126 mmol/L 135-145 Automated blood complete blood count (he mogram) panel - 05/21/19 03:10 Blood leukocytes automated count (number/volume) 4.8 10*3/uL 4.3-11.0 Blood erythrocytes automated count (number/volume) 3.69 10*6/uL 4.35-5.85 Venous blood hemoglobin measurement (mass/volume) 12.1 g/dL 13.3-17.7 Blood hematocrit (volume fraction) 34 % 40-54 Automated erythrocyte mean corpuscular volume 93 [ foz_us] 80-99 Automated erythrocyte mean corpuscular h emoglobin (mass per erythrocyte) 33 pg 25-34 Automated erythrocyte mean corpuscular h emoglobin concentration measurement (mass/volume) 35 g/dL 32-36 Automated erythrocyte distribution width ratio 14. 8 % 10.0- 14.5 Automated blood platelet count (count/volume) 181 10*3/uL 130-400 Automated blood platelet mean volume measurement 10.2 [foz_us] 7.4-10.4 Whole blood basic metabolic panel - 05/10 08/28 03:10 Serum or plasma sodium measurement (moles/volume) 127 mmol/L 135-145 Serum or plasma potassium measurement (moles/volume) 4.3 mmol/L 3.6-5.0 Serum or plasma chloride measurement (moles/volume) 99 mmol/L 98-107 Carbon dioxide 22 mmol/L 21-32 Serum or plasma anion gap determination (moles/volume) 6 mmol/L 5-14 Serum or plasma urea nitrogen measurement (mass/volume ) 12 mg/dL 7-18 Serum or plasma creatinine measurement (mass/volume) 0.72 mg/dL 0.60-1.30 Serum or plasma urea nitrogen/creatinine mass ratio 17 NRG Serum or plasma creatinine measurement w ith calculation of estimated glomerular filtration rate > NRG Serum or plasma glucose measurement (mass/volume) 85 mg/dL 70-105 Serum or plasma calcium measurement (mass/volume) 8.4 mg/dL 8.5-10.1 Serum or plasma sodium measurement (mole s/volume) - 05/21/19 07:06 Serum or plasma sodium measurement (moles/volume) 127 mmol/L 135-145 Serum or plasma sodium measurement (mole s/volume) - 05/21/19 12:33 Serum or plasma sodium measurement (moles/volume) 126 mmol/L 135-145 CMP - 06/03/19 10:25 GLUCOSE 112 mg/dL 65-139 UREA NITROGEN (BUN) 25 mg/dL 7-25 CREATININE 1.03 mg/dL 0.70-1.18 eGFR NON-AFR. [place] 71 mL/min/1.73m2 > OR = 60 eGFR 83 mL/min/1.73m2 > OR = 60 BUN/CREATININE RATIO NOT APPLICABLE (calc) 6-22 SODIUM 136 mmol/L 135-146 POTASSIUM 4.1 mmol/L 3.5-5.3 CHLORIDE 100 mmol/L 98-110 CARBON DIOXIDE 29 mmol/L 20-32 CALCIUM 9.4 mg/dL 8.6-10.3 PROTEIN, TOTAL 6.6 g/dL 6.1-8.1 ALBUMIN 4.3 g/dL 3.6-5.1 GLOBULIN 2.3 g/dL (calc) 1.9-3.7 ALBUMIN/GLOBULIN RATIO 1.9 (calc) 1.0-2. 5 BILIRUBIN, TOTAL 0.5 mg/dL 0.2-1.2 ALKALINE PHOSPHATASE 40 U/L 40-115 AST 14 U/L 10-35 ALT 11 U/L 9-46 Capillary blood glucose measurement by g lucometer (mass/volume) - 06/10/19 13:41 Capillary blood glucose measurement by glucometer (mas s/volume) 108 mg/dL 70-110 Encounters ACCT No. Visit Date/Time Discharge Status Pt. Type Provider Facility Loc./Unit Complaint [id number] 06/03/2019 09:00:00 06/03/2019 23:59:5 9 CLS Outpatient [facility] [id number] 06/03/2019 09:00:00 Document Registration [id number] 01/09/2019 08:00:00 Document Registration [id number] 06/10/2019 13:19:00 14:07:00 DIS Outpatient SUE FARRIS DO [facility] ER FS HIGH BP [id number] 05/20/2019 14:26:00 18:00:00 DIS Inpatient CLARE LÓPEZ, JEFFRY Carbajal [facility] 4TH HYPONATREMIA BRADYCAR DIDI [id number] 11/02/2018 08:48:00 10:08:00 DIS Emergency SUE POWER DO [facility] ER FS LOW BP [id number] 10/28/2018 20:43:00 23:00:00 DIS Emergency HUMBERTO LÓPEZ, SHEMAR linares [facility] ER FS LOW BP
== END 2019-06-10 14:07 | disposition home or self-care (01) ==
LOC: EDUNIT# 13:18 → ER FS 13:19
DX: I10 Essential (primary) hypertension (principal); E78.00 Pure hypercholesterolemia, unspecified; I25.2 Old myocardial infarction; Z88.0 Allergy status to penicillin; Z79.82 Long term (current) use of aspirin; Z95.1 Presence of aortocoronary bypass graft
CPT/HCPCS: 82962; 99283

== ENCOUNTER 2019-12-29 22:30 | Emergency (ER) | payer MEDICARE, OTHER ==
[~2019-12-29] VITALS: Ht 172 cm; Wt 89.2 kg
[~2019-12-29 22:30] MED LIST changes: -MAGN400T6 PO; +MAGN400T8 PO; +SIMV20TA26 PO; -SIMV20TA3 PO
--- OUTSIDE RECORDS SUMMARY | 2019-12-29 22:37 | XMS REPORT | Continuity of Care Document ---
Author Organization Unknown Address Unknown Phone Unavailable Allergies Active Description Code Type Severity Reaction Onset Reported/Identified Relationship to Patient Clinical Status Yes PENICILLIN PENICILLIN Unknown N/A 10/28/2018 Yes Penicillins [id number] Drug Aller gy Unknown N/A 05/20/2019 Medications There is no data. Problems Date Dx Coded Attending Type Code Diagnosis Diagnosed By 10/28/2018 SHEMAR PAUL MD, Ot I25.10 ATHSCL HEART DISEASE OF [place] CORONARY 10/28/2018 SHEMAR PAUL MD Ot R03.1 NONSPECIFIC LOW BLOOD-PRESSURE READING 10/28/2018 SHEMAR PAUL MD Ot R79.89 OTHER SPECIFIED ABNORMAL FINDINGS OF BLO 10/28/2018 SHEMAR PAUL MD Ot Z88.0 ALLERGY STATUS TO PENICILLIN 10/28/2018 SHEMAR PAUL MD Ot Z95.1 PRESENCE OF AORTOCORONARY BYPASS GRAFT 10/31/2018 SHEMAR PAUL MD Ot I25.10 ATHSCL HEART DISEASE OF [place] CORONARY 10/31/2018 SHEMAR PALU MD Ot R03.1 NONSPECIFIC LOW BLOOD-PRESSURE READING 10/31/2018 SHEMAR PAUL MD Ot R79.89 OTHER SPECIFIED ABNORMAL FINDINGS OF BLO 10/31/2018 SHEMAR PAUL MD Ot Z88.0 ALLERGY STATUS TO PENICILLIN 10/31/2018 SHEMAR PAUL MD Ot Z95.1 PRESENCE OF AORTOCORONARY BYPASS GRAFT 10/31/2018 SHEMAR PAUL MD Ot I25.10 ATHSCL HEART DISEASE OF [place] CORONARY 10/31/2018 SHEMAR PAUL MD Ot R03.1 NONSPECIFIC LOW BLOOD-PRESSURE READING 10/31/2018 SHEMAR PAUL MD Ot R79.89 OTHER SPECIFIED ABNORMAL FINDINGS OF BLO 10/31/2018 SHEMAR PAUL MD Ot Z88.0 ALLERGY STATUS TO PENICILLIN 10/31/2018 SHEMAR PAUL MD Ot Z95.1 PRESENCE OF AORTOCORONARY BYPASS GRAFT 11/02/2018 SUE POWER DO Ot E78.00 PURE HYPERCHOLESTEROLEMIA, UNSPECIFIED 11/02/2018 KEITHLY DO, SUE T Ot I11.0 HYPERTENSIVE HEART DISEASE WITH HEART FA 11/02/2018 KEITHLY DO, SUE T Ot I25.10 ATHSCL HEART DISEASE OF [place] CORONARY 11/02/2018 KEITHLY DO, SUE T Ot [...] T Ot I25.10 ATHSCL HEART DISEASE [place] CORONARY 11/05/2018 KEITHLY DO, SUE T Ot [...] MD Ot I25.10 ATHSCL HEART DISEASE OF [place] CORONARY 05/21/2019 JEFFRY SPARKS MD Ot I25 .2 OLD [...] MD Ot I25.10 ATHSCL HEART DISEASE OF [place] CORONARY 05/23/2019 JEFFRY SPARKS MD Ot I25 .2 OLD MYOCARDIAL INFARCTION 05/23/2019 JEFFRY SPARKS MD Ot R00 .1 BRADYCARDIA, UNSPECIFIED 05/23/2019 JEFFRY SPARKS MD Ot Z95 .1 PRESENCE OF AORTOCORONARY BYPASS GRAFT 05/23/2019 JEFFRY SPARKS MD Ot 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[place] 05/23/2019 JEFFYR SPARKS MD Ot E78 .5 HYPERLIPIDEMIA, UNSPECIFIED 05/23/2019 JEFFRY SPARKS MD Ot E87 .1 HYPO-OSMOLALITY AND HYPONATREMIA 05/23/2019 JEFFRY SPARKS MD Ot I10 ESSENTIAL (PRIMARY) HYPERTENSION 05/23/2019 JEFFRY SPARKS MD Ot I25.10 ATHSCL HEART DISEASE [place] CORONARY 05/23/2019 JEFFRY SPARKS MD Ot I25 [...] MD Ot I25.10 ATHSCL HEART DISEASE [place] CORONARY 05/23/2019 JEFFRY SPARKS MD Ot I25 [...] MD Ot I25.10 ATHSCL HEART DISEASE [place] CORONARY 05/23/2019 JEFFRY SPARKS MD Ot I25 .2 OLD MYOCARDIAL INFARCTION 05/23/2019 JEFFRY SPARKS MD Ot R00 .1 BRADYCARDIA, UNSPECIFIED 05/23/2019 JEFFRY SPARKS MD Ot Z95 .1 PRESENCE OF AORTOCORONARY BYPASS GRAFT 06/10/2019 ROVENSTINE DOMAURISIOEN Taryn Ot E78.00 PURE HYPERCHOLESTEROLEMIA, UNSPECIFIED 06/10/2019 ROVENSTINE DO SUE L Ot I10 ESSENTIAL (PRIMARY) HYPERTENSION 06/10/2019 ROVENSTINE DOMAURISIOEN L Ot I25.2 OLD MYOCARDIAL INFARCTION 06/10/2019 ROVENSTINE DOMAURISIOEN L Ot Z79.82 ON CALL PHARMACY TECHNICIAN (CURRENT) USE OF ASPIRIN 06/10/2019 ROVENSTINE DOSUE L Ot Z88.0 ALLERGY STATUS TO PENICILLIN 06/10/2019 ROVENSTINE DOMAURISIOEN L Ot Z95.1 PRESENCE OF AORTOCORONARY BYPASS GRAFT 06/15/2019 ROVENSTSUE MORENO DO Ot E78.00 PURE HYPERCHOLESTEROLEMIA, UNSPECIFIED 06/15/2019 ROALETHEASTSUE MORENO DO, Ot I10 ESSENTIAL (PRIMARY) HYPERTENSION 06/15/2019 ROSIESTSUE MORENO DO, Ot I25.2 OLD MYOCARDIAL INFARCTION 06/15/2019 ROSIESTSUE MORENO DO, Ot Z79.82 ON CALL PHARMACY TECHNICIAN (CURRENT) USE OF ASPIRIN 06/15/2019 ROSIESTSUE MORENO DO, Ot Z88.0 ALLERGY STATUS TO PENICILLIN 06/15/2019 ROSIESTSUE MORENO DO, Ot Z95.1 PRESENCE OF AORTOCORONARY BYPASS GRAFT [...] Automated erythrocyte mean corpuscular volume 99 [ _us] 80-99 Automated erythrocyte mean corpuscular h emoglobin [...] NRG Blood erythrocyte morphology finding identification [facility] Whole blood basic metabolic panel - 10/09 [...] ELECTROLYTES URINE RANDOM - 05/19/19 08: 08 [id number] 15 % NRG U CHLORIDE 111 % [...] 7-25 CREATININE 1.03 mg/dL 0.70-1.18 eGFR NON-AFR. GUINEAN 71 mL/min/1.73m2 > OR = 60 eGFR [...] by glucometer (mas s/volume) 108 mg/dL 70-110 A1C - 06/17/19 09:06 HEMOGLOBIN A1c TNP % of total Hgb NRG A1C - 11/13/19 07:35 HEMOGLOBIN A1c 5.6 % of total Hgb <5.7 Encounters ACCT No. Visit Date/Time Discharge Status Pt. Type Provider Facility Loc./Unit Complaint [id number] 11/13/2019 07:15:00 11/13/2019 23:59:5 9 CLS Outpatient [facility] [id number] 11/13/2019 07:15:00 Document Registration [id number] 06/17/2019 08:00:00 Document Registration [id number] 06/03/2019 09:00:00 Document Registration [id number] 01/09/2019 08:00:00 Document Registration [id number] 06/10/2019 13:19:00 14:07:00 DIS Emergency SUE FARRIS DO [facility] ER FS HIGH BP [id number] 05/20/2019 14:26:00 18:00:00 DIS Inpatient CLARE LÓPEZ, JEFFRY Carbajal [facility] 4TH HYPONATREMIA BRADYCAR DIDI [id number] 11/02/2018 08:48:00 10:08:00 DIS Emergency SUE POWER DO [facility] ER FS LOW BP [id number] 10/28/2018 20:43:00 23:00:00 DIS Emergency HUMBERTO LÓPEZ, SHEMAR linares [facility] ER FS LOW BP
--- NOTE | 2019-12-29 22:46 | ED General ---
General Chief Complaint: General Problems/Pain Stated Complaint: LOW OX LEVELS History of Present Illness Date Seen by Provider: Dec 29, 2019 Time Seen by Provider: 22:47 Initial Comments Patient presenting to emergency department for evaluation of low oxygen saturation saturations on his home oxygen saturation probe. He said he was watching his oxygen levels and a trended down to 93% and this made him very concerned and he wanted to be evaluated in the emergency department. He had no symptoms of pain shortness of breath dizziness weakness numbness tingling and says that he is completely asymptomatic. I asked him why he is checking his oxygen saturation levels at home when he has no symptoms and he says he always does this in addition to checking his blood pressure multiple times daily. I then asked him again why he is checking this with no reason and he says he doesn't is to be on the safe side. He did not bring his oxygen saturation probe with him but here in the emergency department is option saturation is ranging from 97-99% on room air. He is in no obvious distress vital signs are normal as well. Allergies and Home Medications Allergies Coded Allergies: Penicillins (Unverified Allergy, Unknown, 05/20/19) Home Medications Acetaminophen 500 Mg Tablet, 500-1,000 MG PO Q8H PRN for PAIN-MILD (0-3), (Reported) Aspirin 81 Mg Tablet.dr, 81 MG PO DAILY, (Reported) Calcium/Vit B12/FA/Pyridoxine 1 Each Tablet, 400 MCG PO DAILY, (Reported) Carvedilol 6.25 Mg Tablet, 6.25 MG PO DAILY, (Reported) Cetirizine HCl 10 Mg Tablet, 10 MG PO HS, (Reported) Cyclobenzaprine HCl 5 Mg Tablet, 5 MG PO TID PRN for SPASMS, (Reported) Furosemide 20 Mg Tablet, 20 MG PO BID, (Reported) Latanoprost/Pf 7.5 Ml Drops, 1 DROP OU DAILY, (Reported) Lisinopril 20 Mg Tablet, 20 MG PO DAILY PRN for BLOOD PRESSURE, (Reported) ONLY USES WHEN HE HAS HIGH BLOOD PRESSURE Magnesium Oxide 400 Mg Tablet, 400 MG PO DAILY, (Reported) Meloxicam 7.5 Mg Tablet, 7.5 MG PO DAILY, (Reported) [place] 3 Polyunsat Fatty Acids 1,000 Mg Cap, 2,000 MG PO DAILY, (Reported) Potassium Citrate 10 Meq Tablet.er, 10 MEQ PO TIDWM, (Reported) Simvastatin 20 Mg Tablet, 20 MG PO DAILY, (Reported) Patient Home Medication List Home Medication List Reviewed: Yes Review of Systems Review of Systems Constitutional: no symptoms reported EENTM: no symptoms reported Respiratory: no symptoms reported Cardiovascular: no symptoms reported Gastrointestinal: no symptoms reported Genitourinary: no symptoms reported Musculoskeletal: no symptoms reported Psychiatric/Neurological: No Symptoms Reported All Other Systems Reviewed Negative Unless Noted: Yes Past Jlcbeev-Xqhspf-Cdcdiv Hx Patient Social History 2nd Hand Smoke Exposure: No Recent Foreign Travel: No Contact w/Someone Who Travel: No Recent Hopitalizations: No Immunizations Up To Date Date of Pneumonia Vaccine: May 08, 2019 Seasonal Allergies Seasonal Allergies: Yes Past Medical History Surgeries: Yes CABG Respiratory: No Cardiac: Yes Heart Attack, High Cholesterol, Hypertension Neurological: No Genitourinary: No Gastrointestinal: No Musculoskeletal: No Endocrine: No HEENT: No Cancer: No Psychosocial: No Integumentary: No Blood Disorders: No Physical Exam Vital Signs Capillary Refill : Height, Weight, BMI Height: 5'8.00" Weight: 196lbs. 0oz. 88.249657sq; 27.00 BMI Method:Stated General Appearance: No Apparent Distress, WD/WN HEENT: PERRL/EOMI Respiratory: Lungs Clear, No Respiratory Distress Cardiovascular: Regular Rate, Rhythm Extremity: Normal Capillary Refill Neurologic/Psychiatric: Alert, Oriented x3 Skin: Warm/Dry Progress/Results/Core Measures Suspected Sepsis SIRS Temperature: Pulse: Respiratory Rate: Blood Pressure / Mean: Results/Orders Vital Signs/I&O Capillary Refill : Progress Note : Progress Note Patient had an oxygen saturation of 93% at home which would not worry me particularly especially given )2 saturations normal here. He is asymptomatic and appears well so he'll be discharged in stable condition and told to follow with his primary care provider within 2-3 days for recheck and I told her to come back to the emergency department any time with any new worsening symptoms or other concerns. Departure Impression Primary Impression: Encounter for medical screening examination Disposition: HOME, SELF-CARE Condition: Stable Departure-Patient Inst. Referrals: JOSÉ MANUEL HUERTAS MD (PCP) Primary Care Physician NOHEMY HARRY APRN (Family) Primary Care Physician KIAN OSEI DO Dec 29, 2019 22:46
[2019-12-29 22:48] VITALS: BP 159/59
== END 2019-12-29 22:48 | disposition home or self-care (01) ==
LOC: EDUNIT# 22:30 → ER FS 22:33
DX: Z03.89 Encounter for observation for other suspected diseases and conditions ruled out (principal); I10 Essential (primary) hypertension; I25.2 Old myocardial infarction; E78.00 Pure hypercholesterolemia, unspecified; Z88.0 Allergy status to penicillin; Z79.82 Long term (current) use of aspirin; Z95.1 Presence of aortocoronary bypass graft
CPT/HCPCS: 99281

== ENCOUNTER 2020-05-08 13:28 | Inpatient (IN) | payer MEDICARE, OTHER ==
[~2020-05-08] VITALS: Ht 172.7 cm; Wt 86.2 kg
--- NOTE | 2020-05-08 13:39 | ED GI ---
General Stated Complaint: ABD PAIN/DIARRHEA History of Present Illness Date Seen by Provider: May 08, 2020 Time Seen by Provider: 13:39 Initial Comments 74-year-old male presents with some abdominal cramping and diarrhea. Reports symptoms have been present for a couple days. He denies any fevers, chills, cough, nausea or vomiting. He does report he's had some issues with constipation in the past. Allergies and Home Medications Allergies Coded Allergies: Penicillins (Unverified Allergy, Unknown, 05/20/19) Home Medications Acetaminophen 500 Mg Tablet, 500-1,000 MG PO Q8H PRN for PAIN-MILD (0-3), (Reported) Aspirin 81 Mg Tablet.dr, 81 MG PO DAILY, (Reported) Calcium/Vit B12/FA/Pyridoxine 1 Each Tablet, 400 MCG PO DAILY, (Reported) Carvedilol 6.25 Mg Tablet, 6.25 MG PO DAILY, (Reported) Cetirizine HCl 10 Mg Tablet, 10 MG PO HS, (Reported) Cyclobenzaprine HCl 5 Mg Tablet, 5 MG PO TID PRN for SPASMS, (Reported) Furosemide 20 Mg Tablet, 20 MG PO BID, (Reported) Latanoprost/Pf 7.5 Ml Drops, 1 DROP OU DAILY, (Reported) Lisinopril 20 Mg Tablet, 20 MG PO DAILY PRN for BLOOD PRESSURE, (Reported) ONLY USES WHEN HE HAS HIGH BLOOD PRESSURE Magnesium Oxide 400 Mg Tablet, 400 MG PO DAILY, (Reported) Meloxicam 7.5 Mg Tablet, 7.5 MG PO DAILY, (Reported) [place] 3 Polyunsat Fatty Acids 1,000 Mg Cap, 2,000 MG PO DAILY, (Reported) Potassium Citrate 10 Meq Tablet.er, 10 MEQ PO TIDWM, (Reported) Simvastatin 20 Mg Tablet, 20 MG PO DAILY, (Reported) Patient Home Medication List Home Medication List Reviewed: Yes Review of Systems Review of Systems Constitutional: No chills, No fever, No malaise, No weakness Respiratory: Denies Cough, Denies Shortness of Air Cardiovascular: Denies Chest Pain, Denies Irregular Heart Rate, Denies Lightheadedness, Denies Palpitations Gastrointestinal: Abdominal Pain, Diarrhea; Denies Nausea, Denies Vomiting Musculoskeletal: no symptoms reported Skin: no symptoms reported Psychiatric/Neurological: No Symptoms Reported Endocrine: No Symptoms Reported Hematologic/Lymphatic: No Symptoms Reported Past Mvnvxdp-Rnyavn-Qdeutu Hx Past Med/Social Hx: Reviewed Nursing Past Med/Soc Hx Patient Social History 2nd Hand Smoke Exposure: No Recent Foreign Travel: No Contact w/Someone Who Travel: No Recent Hopitalizations: No Immunizations Up To Date Date of Pneumonia Vaccine: May 08, 2019 Seasonal Allergies Seasonal Allergies: Yes Past Medical History Surgeries: Yes CABG Respiratory: No Cardiac: Yes Heart Attack, High Cholesterol, Hypertension Neurological: No Genitourinary: No Gastrointestinal: No Musculoskeletal: No Endocrine: No HEENT: No Cancer: No Psychosocial: No Integumentary: No Blood Disorders: No Physical Exam Vital Signs Capillary Refill : Height/Weight/BMI Height: 5'8.00" Weight: 196lbs. 0oz. 88.529211ro; 30.00 BMI Method:Stated General Appearance: WD/WN, no apparent distress Respiratory: lungs clear Cardiovascular: normal peripheral pulses, regular rate, rhythm Gastrointestinal: non tender, soft; No distended, No guarding, No rebound Extremities: non-tender, normal inspection Neurologic/Psychiatric: alert, normal mood/affect, oriented x 3 Skin: normal color, warm/dry Progress/Results/Core Measures Results/Orders Lab Results Laboratory Tests Test 05/08/20 14:00 Range/Units White Blood Count 5.6 4.3-11.0 10^3/uL Red Blood Count 3.58 L 4.35-5.85 10^6/uL Hemoglobin 11.6 L 13.3-17.7 G/DL Hematocrit 32 L 40-54 % Mean Corpuscular Volume 89 80-99 FL Mean Corpuscular Hemoglobin 32 25-34 PG Mean Corpuscular Hemoglobin Concent 37 H 32-36 G/DL Red Cell Distribution Width 12.1 10.0-14.5 % Platelet Count 254 130-400 10^3/uL Mean Platelet Volume 9.5 7.4-10.4 FL Immature Granulocyte % (Auto) 0 % Neutrophils (%) (Auto) 39 L 42-75 % Lymphocytes (%) (Auto) 39 12-44 % Monocytes (%) (Auto) 10 0-12 % Eosinophils (%) (Auto) 10 0-10 % Basophils (%) (Auto) 1 0-10 % Neutrophils # (Auto) 2.2 1.8-7.8 X 10^3 Lymphocytes # (Auto) 2.2 1.0-4.0 X 10^3 Monocytes # (Auto) 0.6 0.0-1.0 X 10^3 Eosinophils # (Auto) 0.6 H 0.0-0.3 10^3/uL Basophils # (Auto) 0.1 0.0-0.1 10^3/uL Immature Granulocyte # (Auto) 0.0 0.0-0.1 10^3/uL Sodium Level 112 *L 135-145 MMOL/L Potassium Level 4.4 3.6-5.0 MMOL/L Chloride Level 80 L 98-107 MMOL/L Carbon Dioxide Level 24 21-32 MMOL/L Anion Gap 8 5-14 MMOL/L Blood Urea Nitrogen 12 7-18 MG/DL Creatinine 0.80 0.60-1.30 MG/DL Estimat Glomerular Filtration Rate > 60 BUN/Creatinine Ratio 15 Glucose Level 94 70-105 MG/DL Calcium Level 9.0 8.5-10.1 MG/DL Corrected Calcium 8.6 8.5-10.1 MG/DL Total Bilirubin 0.7 0.1-1.0 MG/DL Aspartate Amino Transf (AST/SGOT) 24 5-34 U/L Alanine Aminotransferase (ALT/SGPT) 13 0-55 U/L Alkaline Phosphatase 50 40-136 U/L Total Protein 6.7 6.4-8.2 GM/DL Albumin 4.5 3.2-4.5 GM/DL Lipase 24 8-78 U/L My Orders Orders - IRBY,OLEGARIO L DO Comprehensive Metabolic Panel (05/08/20 13:41) Lipase (05/08/20 13:41) Ua Culture If Indicated (05/08/20 13:41) Ed Iv/Invasive Line Start (05/08/20 13:41) Acute Abd Series (05/08/20 13:41) Cbc With Automated Diff (05/08/20 13:41) Ns Iv 1000 Ml (Sodium Chloride 0.9%) (05/08/20 14:45) Diagnostic Imaging Diagonstic Imaging: Xray Plain Films/CT/US/NM/MRI: abdomen Comments [facility] [place], [place] NAME: CLARY VELEZ [facility] REC#: [id number] PT STATUS: REG ER : 1945 PHYSICIAN: OLEGARIO IRBY DO ADMIT DATE: 05/08/20/ER FS Draft Date of Exam:05/08/20 ACUTE ABD SERIES INDICATION: Abdominal pain, diarrhea. COMPARISON: None. FINDINGS: Supine and upright views of the abdomen show a nondistended bowel gas pattern. No abnormal air fluid levels or free intraperitoneal air is seen. Multiple gravity dependent extraosseous calcifications are noted within the right upper abdominal quadrant and are presumed to represent cholelithiasis. No unexpected radiopaque foreign bodies are seen. Bony and soft tissue structures are within normal limits. No organomegaly is identified. Accompanying upright chest shows borderline prominent cardiac silhouette. Pulmonary vasculature however is within normal limits. Sternotomy wires are noted. The lungs are well aerated and clear. The mediastinum is normal in appearance. IMPRESSION: 1. Nonobstructive small bowel gas pattern. 2. Cholelithiasis. 3. No acute cardiopulmonary process. Dictated on workstation # [id number] Dict: 05/08/20 1408 Trans: 05/08/20 1413 [facility] [phone] Interpreted by: ANJELICA JEAN MD Electronically signed by: Departure Communication (Admissions) Time/Spoke to Admitting Phy: 15:01 okay to admit, NS at 80 ml/hr Impression Primary Impression: Hyponatremia Additional Impression: Diarrhea Qualified Codes: R19.7 - Diarrhea, unspecified Disposition: 30 STILL A PATIENT Condition: Stable Admissions Decision to Admit Reason: Admit from ER (General) Decision to Admit/Date: May 08, 2020 Time/Decision to Admit Time: 15:01 Departure-Patient Inst. Referrals: NOHEMY HARRY [employer]ING [employer] OPERATOR (PCP/Family) Primary Care Physician OLEGARIO IRBY DO May 08, 2020 13:39
[2020-05-08 14:11] LABS: HEMATOCRIT 32 % (40-54); HEMOGLOBIN 11.6 G/DL (13.3-17.7); MEAN CORPUSCULAR HEMOGLOBIN 32 PG (25-34); MEAN CORPUSCULAR HGB CONC 37 G/DL (32-36); MEAN CORPUSCULAR VOLUME 89 FL (80-99); WHITE BLOOD COUNT 5.6 10^3/uL (4.3-11.0)
[2020-05-08 14:12] LABS: BASOPHILS # (AUTO) 0.1 10^3/uL (0.0-0.1); BASOPHILS % (AUTO) 1 % (0-10); EOSINOPHILS # (AUTO) 0.6 10^3/uL (0.0-0.3); EOSINOPHILS % (AUTO) 10 % (0-10); LYMPHOCYTES # (AUTO) 2.2 X 10^3 (1.0-4.0); LYMPHOCYTES % (AUTO) 39 % (12-44); MEAN PLATELET VOLUME 9.5 FL (7.4-10.4); MONOCYTES # (AUTO) 0.6 X 10^3 (0.0-1.0); MONOCYTES % (AUTO) 10 % (0-12); NEUTROPHILS # (AUTO) 2.2 X 10^3 (1.8-7.8); NEUTROPHILS % (AUTO) 39 % (42-75); PLATELET COUNT 254 10^3/uL (130-400)
--- NOTE | 2020-05-08 14:14 | Diagnostic Imaging Report ---
INDICATION: Abdominal pain, diarrhea. COMPARISON: None. FINDINGS: Supine and upright views of the abdomen show a nondistended bowel gas pattern. No abnormal air fluid levels or free intraperitoneal air is seen. Multiple gravity dependent extraosseous calcifications are noted within the right upper abdominal quadrant and are presumed to represent cholelithiasis. No unexpected radiopaque foreign bodies are seen. Bony and soft tissue structures are within normal limits. No organomegaly is identified. Accompanying upright chest shows borderline prominent cardiac silhouette. Pulmonary vasculature however is within normal limits. Sternotomy wires are noted. The lungs are well aerated and clear. The mediastinum is normal in appearance. IMPRESSION: 1. Nonobstructive small bowel gas pattern. 2. Cholelithiasis. 3. No acute cardiopulmonary process. Dictated by: Dictated on workstation # [id number]
[2020-05-08 14:34] LABS: ALANINE AMINOTRANSFERASE 13 U/L (0-55); ALBUMIN 4.5 GM/DL (3.2-4.5); ALKALINE PHOSPHATASE 50 U/L (40-136); BILIRUBIN,TOTAL 0.7 MG/DL (0.1-1.0); BUN/CREATININE RATIO 15; CARBON DIOXIDE 24 MMOL/L (21-32); GFR ESTIMATED > 60; GLUCOSE 94 MG/DL (70-105); TOTAL PROTEIN 6.7 GM/DL (6.4-8.2)
[2020-05-08 14:35] LABS: CHLORIDE 80 MMOL/L (98-107); LIPASE 24 U/L (8-78); POTASSIUM 4.4 MMOL/L (3.6-5.0)
[2020-05-08 14:36] LABS: SODIUM 112 MMOL/L (135-145)
[2020-05-08] MEDS ORDERED: NS IV 1000 ML 1,000 ML IV STA (14:45)
[2020-05-08] MEDS ORDERED: NS IV 1000 ML 1,000 ML IV ONE (14:59)
--- NOTE | 2020-05-08 15:47 | NUR ---
Notified EMS for transfer, Dr Lynch reports ok BLS transfer.
[2020-05-08] MEDS ORDERED: LISI10TA2 PO (16:05)
[2020-05-08] MEDS ORDERED: MELO15TA39 PO (16:05)
--- NOTE | 2020-05-08 16:07 | NUR ---
SPOKE WITH THE PTS DAUGHTER (JEFFREY), HAD [facility] FAX AN ACTIVE MED LIST (I WILL ATTACH IT TO HIS CHART) AND WENT THRU THE EXT MED HISTORY TO COMPLETE THE MED REC JEFFREY LET ME KNOW SHE DOES TAKE CARE OF THE PTS MEDICATIONS AND ORGANIZES THEM IN A MED AUGER MACHINE OFFBEARER FOR THE PT. I WENT THRU THE MEDICATION LIST PROVIDED BY [facility] AND JEFFREY WAS ABLE TO TELL ME HOW SHE SETS UP THE MEDS FOR THE PT TO TAKE FUROSEMIDE 20MG- DIRECTIONS ARE 1 TAB BID HOWEVER PT IS TAKING 1 TAB DAILY LISINOPRIL 10MG- DIRECTIONS ARE 1 TAB BID HOWEVER PT ONLY TAKES THIS WHEN HE FEELS HIS BP IS HIGH OTC MEDS: ASPIRIN FISH OIL
[2020-05-08 16:49] LABS: BILIRUBIN,URINE NEGATIVE (NEGATIVE); CLARITY,URINE CLEAR; COLOR,URINE YELLOW; GLUCOSE, URINE (UA) NEGATIVE (NEGATIVE); KETONES,URINE NEGATIVE (NEGATIVE); LEUKOCYTE ESTERASE ,URINE NEGATIVE (NEGATIVE); NITRITE,URINE NEGATIVE (NEGATIVE); PROTEIN,URINE NEGATIVE (NEGATIVE); WBC,URINE RARE /HPF
[2020-05-08 17:24] VITALS: BP 140/75
--- NOTE | 2020-05-08 17:35 | History & Physical-Hospitalist ---
History of Present Illness HPI/Chief Complaint CC: Hyponatremia with diarrhea HPI: This is a 74yoWM with h/o pituitary tumor in the past who presents to the ER with weakness and diarrhea and found to have sodium level of 112. Unknown baseline of sodium level and he is a poor historian. [facility] records accessed: 06/05/2019: Will Ragsdale is a 73 y.o. 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 Du and Santo. Problem Obesity (BMI 30.0-34.9) E66.9 Jul, Active 192993749 Problem Hyperlipidemia E78.5 Jan, Active 66020268 Problem Ischemic cardiomyopathy I25.5 Jan, Active 710958885 Problem Dilated cardiomyopathy I42.0 Dec, Active 628643680 Problem Hypoxia R09.02 Apr, Active 764565829 Problem Coronary atherosclerosis I25.10 Active 495773880 Problem Diastolic dysfunction without heart failure I51.89 Mar, Active Problem Debility R53.81 Jan, Active 42409344 Problem Nocturnal dyspnea R06.00 Jan, Active 487238233 Problem Benign hypertension I10 Active 92977824 Problem Hyperlipemia, mixed E78.2 Active 470065657 Problem Allergic rhinitis, unspecified seasonality, unspecified trigger J30.9 Active 58941785 Problem Prediabetes R73.03 Jan, Active 267722848 Problem Allergic rhinitis, unspecified seasonality, unspecified trigger J30.9 Active Problem Aortic root dilatation I77.810 Mar, Active 126703526 Problem Hyperlipidemia, unspecified E78.5 Active Problem Essential (primary) hypertension I10 Active Problem Athscl heart disease of [place] coronary artery w/o ang pctrs I25.10 Active Problem Seasonal allergic rhinitis, unspecified trigger J30.2 Active 289054694 Source: patient, RN/MD Exam Limitations: other (dementia) Date Seen 05/08/20 Time Seen by a Provider: 18:00 Attending Physician Slater,Brisa DO PCP Kennedy,Sharyn S Automation Tender Referring Physician Date of Admission May 08, 2020 at 17:23 Home Medications & Allergies Home Medications Reviewed patient Home Medication Reconciliation performed by pharmacy medication reconciliations master hearth technician and/or nursing. Patients Allergies have been reviewed. Allergies Allergies Coded Allergies Penicillins (Unverified Allergy, Unknown, 05/20/19) Past Frnxisz-[id number]-Lksjdk Hx Past Med/Social Hx: Reviewed Nursing Past Med/Soc Hx, Reviewed and Corrections made Patient Social History Marrital Status: Employed/Student: retired Alcohol Use: Denies Use Recreational Drug Use: No Smoking Status: Former Smoker 2nd Hand Smoke Exposure: No Recent Foreign Travel: No Contact w/other who traveled: No Recent Hopitalizations: No Recent Infectious Disease Expo: No Immunizations Up To Date Date of Pneumonia Vaccine: May 08, 2019 Seasonal Allergies Seasonal Allergies: Yes Past Medical History Surgeries: CABG transphenoidal resection of pituitary adenoma 05/2019 Cardiac: Heart Attack, High Cholesterol, Hypertension History of Blood Disorders: No Review of Systems Constitutional: see HPI, weakness Gastrointestinal: diarrhea Physical Exam Physical Exam Vital Signs Vital Signs - First Documented 05/08/20 13:35 Temp 37.1 Pulse 71 Resp 20 B/P (MAP) 144/85 (104) Pulse Ox 97 O2 Delivery Room Air Capillary Refill : Less Than 3 Seconds Height, Weight, BMI Height: 5'8.00" Weight: 196lbs. 0oz. 88.095648nm; 28.90 BMI Method:Stated General Appearance: No Apparent Distress Eyes: Right Eye Normal Inspection, Right Eye PERRL HEENT: PERRL/EOMI, Normal ENT Inspection, Pharynx Normal, Moist Mucous Membranes Neck: Full Range of Motion, Normal Inspection, Non Tender Respiratory: Chest Non Tender, Lungs Clear, Normal Breath Sounds, No Accessory Muscle Use, No Respiratory Distress Cardiovascular: Regular Rate, Rhythm, No Edema, No Gallop, No JVD, No Murmur, Normal Peripheral Pulses Gastrointestinal: Normal Bowel Sounds, No Organomegaly, No Pulsatile Mass, Non Tender, Soft Back: Normal Inspection, No CVA Tenderness, No Vertebral Tenderness Extremity: Normal Capillary Refill, Normal Inspection, Normal Range of Motion, Non Tender, No Calf Tenderness, No Pedal Edema Neurologic/Psychiatric: Alert, Oriented x3, No Motor/Sensory Deficits, Normal Mood/Affect, Disoriented Skin: Normal Color, Warm/Dry Lymphatic: No Adenopathy Results Results/Procedures Labs Laboratory Tests 05/08/20 14:00 05/09/20 06:18 Patient resulted labs reviewed. Assessment/Plan Admission Diagnosis Assessment: Severe hyponatremia Dehydration Diarrhea s/p transphenoidal pituitary adenoma resection 06/05/2019 Ischemic cardiomyopathy CHF Plan: IVF Salt tablets Regular diet Problem Obesity (BMI 30.0-34.9) E66.9 Jul, Active 190133574 Problem Hyperlipidemia E78.5 Jan, Active 43024449 Problem Ischemic cardiomyopathy I25.5 Jan, Active 157400842 Problem Dilated cardiomyopathy I42.0 Dec, Active 548706923 Problem Hypoxia R09.02 Apr, Active 036817874 Problem Coronary atherosclerosis I25.10 Active 965166651 Problem Diastolic dysfunction without heart failure I51.89 Mar, Active Problem Debility R53.81 Jan, Active 06191223 Problem Nocturnal dyspnea R06.00 Jan, Active 052857812 Problem Benign hypertension I10 Active 30097246 Problem Hyperlipemia, mixed E78.2 Active 139061036 Problem Allergic rhinitis, unspecified seasonality, unspecified trigger J30.9 Active 29761543 Problem Prediabetes R73.03 Jan, Active 126223122 Problem Allergic rhinitis, unspecified seasonality, unspecified trigger J30.9 Active Problem Aortic root dilatation I77.810 Mar, Active 708823056 Problem Hyperlipidemia, unspecified E78.5 Active Problem Essential (primary) hypertension I10 Active Problem Athscl heart disease of [place] coronary artery w/o ang pctrs I25.10 Active Problem Seasonal allergic rhinitis, unspecified trigger J30.2 Active 367198839 Admission Status: Inpatient Order (span 2 midnights) Reason for Inpatient Admission: severe hyponatremia Diagnosis/Problems Diagnosis/Problems (1) Hyponatremia Status: Acute (2) Diarrhea Status: Acute Qualifiers: Diarrhea type: unspecified type Qualified Codes: R19.7 - Diarrhea, unspecified (3) Hypertension Status: Chronic BRISA SLATER DO May 08, 2020 17:35
--- NOTE | 2020-05-08 17:42 | NUR ---
CLARY VELEZ Christy admitted to room 410-1, with an admitting diagnosis of hypnatremia, on 05/08/20 from [facility] via EMS accompanied by EMS staff.CLARY VELEZ introduced to surroundings, call light, bed controls, phone, TV, temperature control, lights, meal times, smoking policy, visitor policy, side rail policy, bathrooms and showers. Patient Rights given to patient in the handbook. CLARY VELEZ verbalizes understanding that [facility] is not responsible for the loss or damage to any personal effects or valuables that are kept in the patients posession during their hospitalization. The following Patient Care Plans and discharge were discussed with the patient . CLARY VELEZ verbalizes understanding of Interdisciplinary Patient Education. Patient was informed about the Rapid Response Team and its purpose.
[2020-05-08] MEDS ORDERED: lisINopril 10 MG (PRINIVIL) TABLET PO PRN (18:00)
[2020-05-08] MEDS ORDERED: DOCUSATE SODIUM 100 MG (COLACE) CAP PO PRN (18:15)
[2020-05-08] MEDS ORDERED: LOPERAMIDE 2 MG (IMODIUM) TABLET PO PRN (18:15)
[2020-05-08] MEDS ORDERED: ACETAMINOPHEN 500 MG TAB (TYLENOL) PO PRN (18:15)
[2020-05-08] MEDS ORDERED: diphenhydrAMINE 25 MG TAB (BENADRYL) PO PRN (18:15)
[2020-05-08] MEDS ORDERED: MELATONIN 3 MG TABLET PO PRN (18:15)
[2020-05-08] MEDS ORDERED: CALCIUM CARBONATE 500 MG (TUMS) TAB.CHEW PO PRN (18:15)
[2020-05-08] MEDS ORDERED: ONDANSETRON 4 MG/2 ML (SDV) Z0FRAN IVP PRN (18:15)
[2020-05-08] MEDS: ENOXAPARIN 40 MG/0.4 ML (LOVENOX) SYR SC SCH (19:09)
[2020-05-08 19:43] VITALS: BP 145/66
[2020-05-08] MEDS: LATANOPROST 0.005% (XALATAN) OPHTH SOLN 2.5 ML OU SCH (20:51)
[2020-05-09] VITALS: BP 147/70
[2020-05-09 04:00] VITALS: BP 129/64
[2020-05-09 07:03] LABS: BASOPHILS % (AUTO) 1 % (0-10); EOSINOPHILS # (AUTO) 0.3 10^3/uL (0.0-0.3); EOSINOPHILS % (AUTO) 7 % (0-10); HEMATOCRIT 29 % (40-54); HEMOGLOBIN 10.5 g/dL (13.3-17.7); LYMPHOCYTES # (AUTO) 1.8 10^3/uL (1.0-4.0); LYMPHOCYTES % (AUTO) 41 % (12-44); MEAN CORPUSCULAR HEMOGLOBIN 32 pg (25-34); MEAN CORPUSCULAR HGB CONC 37 g/dL (32-36); MEAN CORPUSCULAR VOLUME 88 fL (80-99); MEAN PLATELET VOLUME 10.4 fL (9.0-12.2); MONOCYTES # (AUTO) 0.5 10^3/uL (0.0-1.0); MONOCYTES % (AUTO) 11 % (0-12); NEUTROPHILS # (AUTO) 1.7 10^3/uL (1.8-7.8); NEUTROPHILS % (AUTO) 39 % (42-75); PLATELET COUNT 213 10^3/uL (130-400); WHITE BLOOD COUNT 4.3 10^3/uL (4.3-11.0)
[2020-05-09 07:05] LABS: ALBUMIN 3.9 GM/DL (3.2-4.5)
[2020-05-09 07:06] LABS: CHLORIDE 83 MMOL/L (98-107); POTASSIUM 4.2 MMOL/L (3.6-5.0)
[2020-05-09 07:07] LABS: CALCIUM 8.3 MG/DL (8.5-10.1); SODIUM 111 MMOL/L (135-145)
[2020-05-09 07:08] LABS: GLUCOSE 78 MG/DL (70-105); TOTAL PROTEIN 5.9 GM/DL (6.4-8.2)
[2020-05-09 07:09] LABS: CARBON DIOXIDE 20 MMOL/L (21-32)
[2020-05-09 07:10] LABS: BILIRUBIN,TOTAL 0.9 MG/DL (0.1-1.0)
[2020-05-09 07:11] LABS: ALKALINE PHOSPHATASE 41 U/L (40-136)
[2020-05-09 07:12] LABS: CREATININE SERUM 0.72 MG/DL (0.60-1.30); GFR ESTIMATED > 60
[2020-05-09 07:13] LABS: BUN/CREATININE RATIO 15
[2020-05-09 07:14] LABS: ALANINE AMINOTRANSFERASE 12 U/L (0-55)
[2020-05-09] MEDS ORDERED: NS IV 1000 ML 1,000 ML IV SCH (07:15)
[2020-05-09] MEDS: SIMvastatin 20 MG (ZOCOR) TAB PO SCH (07:53)
[2020-05-09] MEDS: OMEGA 3 (FISH OIL) 1000 MG CAP PO SCH (07:53)
[2020-05-09] MEDS: MAGNESIUM OXIDE (MAG-OX)400 MG TAB PO SCH (07:53)
[2020-05-09] MEDS: ASPIRIN E.C. 81 MG (ECOTRIN) TAB PO SCH (07:53)
[2020-05-09] MEDS: FUROSEMIDE 20 MG (LASIX) TAB PO SCH (07:53)
[2020-05-09] MEDS: LORATADINE (CLARITIN) 10 MG TAB PO SCH (07:53)
[2020-05-09] MEDS: SODIUM CHLORIDE 1 GM TABLET PO SCH ×2 (08:04→20:04)
[2020-05-09] MEDS: CARVEDILOL 6.25 MG (COREG) TAB PO SCH (08:04)
[2020-05-09] MEDS: MELOXICAM 7.5 MG (MOBIC) TABLET PO SCH (08:04)
[2020-05-09 08:47] VITALS: BP 147/79
[2020-05-09] MEDS ORDERED: POTASSIUM CITRATE 10 MEQ (UROCIT-K) NON-FORMULARY PO SCH (09:00)
[2020-05-09] MEDS: SODIUM CHLORIDE 3% 500 ML IV SCH (09:31)
--- NOTE | 2020-05-09 10:37 | Consultation-Cardiology ---
HPI-Cardiology Cardiology Consultation Date of Consultation 05/09/20 Date of Admission Time Seen by Provider: 10:33 Indication: congestive heart failure HPI 74-year-old gentleman with history of coronary artery disease, hypertension. Had pituitary tumor resection done last year, was doing well. Started to complain of generalized weakness loss of energy and mild diarrhea. Came into the emergency room for evaluation noted to have severe hyponatremia. Known to have ischemic cardiomyopathy with dilated cardiomyopathy. Home Medications & Allergies Allergies: Coded Allergies: Penicillins (Unverified Allergy, Unknown, 05/20/19) Home Medication List Reviewed: Yes [id number]-Pcur[facility] Hx Patient Social History Marital Status: Employed/Student: retired Alcohol Use: Denies Use Recreational Drug Use: No Smoking Status: Former Smoker 2nd Hand Smoke Exposure: No Recent Foreign Travel: No Recent Infectious Disease Expo: No Recent Hopitalizations: No Immunizations Up To Date Date of Pneumonia Vaccine: May 08, 2019 Past Medical History Discussed below Family Medical History Family History: Hypertension 19 FATHER Review of Systems-General Review of Systems Constitutional: see HPI, weakness Respiratory: see HPI; No cough; dyspnea on exertion; No hemoptysis, No orthopnea, No phlegm, No short of breath, No stridor, No wheezing, No other Cardiovascular: see HPI; No chest pain, No edema, No Hx of Intervention, No palpitations, No syncope, No vascular heart diseas, No other Gastrointestinal: see HPI, diarrhea Genitourinary: see HPI Musculoskeletal: no symptoms reported, see HPI Skin: no symptoms reported, see HPI Psychiatric/Neurological: No Symptoms Reported, See HPI Reviewed Test Results Reviewed Test Results Lab Laboratory Tests Test 05/08/20 14:00 05/08/20 16:33 05/09/20 06:18 Range/Units White Blood Count 5.6 4.3 4.3-11.0 10^3/uL Red Blood Count 3.58 L 3.26 L 4.30-5.52 10^6/uL Hemoglobin 11.6 L 10.5 L 13.3-17.7 g/dL Hematocrit 32 L 29 L 40-54 % Mean Corpuscular Volume 89 88 80-99 fL Mean Corpuscular Hemoglobin 32 32 25-34 pg Mean Corpuscular Hemoglobin Concent 37 H 37 H 32-36 g/dL Red Cell Distribution Width 12.1 11.9 10.0-14.5 % Platelet Count 254 213 130-400 10^3/uL Mean Platelet Volume 9.5 10.4 9.0-12.2 fL Immature Granulocyte % (Auto) 0 0 % Neutrophils (%) (Auto) 39 L 39 L 42-75 % Lymphocytes (%) (Auto) 39 41 12-44 % Monocytes (%) (Auto) 10 11 0-12 % Eosinophils (%) (Auto) 10 7 0-10 % Basophils (%) (Auto) 1 1 0-10 % Neutrophils # (Auto) 2.2 1.7 L 1.8-7.8 10^3/uL Lymphocytes # (Auto) 2.2 1.8 1.0-4.0 10^3/uL Monocytes # (Auto) 0.6 0.5 0.0-1.0 10^3/uL Eosinophils # (Auto) 0.6 H 0.3 0.0-0.3 10^3/uL Basophils # (Auto) 0.1 0.0 0.0-0.1 10^3/uL Immature Granulocyte # (Auto) 0.0 0.0 0.0-0.1 10^3/uL Sodium Level 112 *L 111 *L 135-145 MMOL/L Potassium Level 4.4 4.2 3.6-5.0 MMOL/L Chloride Level 80 L 83 L 98-107 MMOL/L Carbon Dioxide Level 24 20 L 21-32 MMOL/L Anion Gap 8 8 5-14 MMOL/L Blood Urea Nitrogen 12 11 7-18 MG/DL Creatinine 0.80 0.72 0.60-1.30 MG/DL Estimat Glomerular Filtration Rate > 60 > 60 BUN/Creatinine Ratio 15 15 Glucose Level 94 78 70-105 MG/DL Calcium Level 9.0 8.3 L 8.5-10.1 MG/DL Corrected Calcium 8.6 8.4 L 8.5-10.1 MG/DL Total Bilirubin 0.7 0.9 0.1-1.0 MG/DL Aspartate Amino Transf (AST/SGOT) 24 22 5-34 U/L Alanine Aminotransferase (ALT/SGPT) 13 12 0-55 U/L Alkaline Phosphatase 50 41 40-136 U/L Total Protein 6.7 5.9 L 6.4-8.2 GM/DL Albumin 4.5 3.9 3.2-4.5 GM/DL Lipase 24 8-78 U/L Urine Color YELLOW Urine Clarity CLEAR Urine pH 7.0 5-9 Urine Specific [place] 1.025 H 1.016-1.022 Urine Protein NEGATIVE NEGATIVE Urine Glucose (UA) NEGATIVE NEGATIVE Urine Ketones NEGATIVE NEGATIVE Urine Nitrite NEGATIVE NEGATIVE Urine Bilirubin NEGATIVE NEGATIVE Urine Urobilinogen 0.2 < = 1.0 MG/DL Urine Leukocyte Esterase NEGATIVE NEGATIVE Urine RBC (Auto) 2+ H NEGATIVE Urine RBC 5-10 H /HPF Urine WBC RARE /HPF Urine Crystals NONE /LPF Urine Bacteria NONE /HPF Urine Casts NONE /LPF Urine Mucus NEGATIVE /LPF Urine Culture Indicated NO Physical Exam Physical Exam Vital Signs Vital Signs - First Documented 05/08/20 13:35 Temp 37.1 Pulse 71 Resp 20 B/P (MAP) 144/85 (104) Pulse Ox 97 O2 Delivery Room Air Capillary Refill : Less Than 3 Seconds Height, Weight, BMI Height: 5'8.00" Weight: 196lbs. 0oz. 88.451627qc; 28.90 BMI Method:Stated General Appearance: No Apparent Distress Eyes: Right Eye Normal Inspection, Right Eye PERRL HEENT: PERRL/EOMI, Normal ENT Inspection, Pharynx Normal, Moist Mucous Membranes Neck: Full Range of Motion, Normal Inspection, Non Tender Respiratory: Chest Non Tender, Lungs Clear, Normal Breath Sounds, No Accessory Muscle Use, No Respiratory Distress Cardiovascular: Regular Rate, Rhythm, No Edema, No Gallop, No JVD, No Murmur, Normal Peripheral Pulses Gastrointestinal: Normal Bowel Sounds, No Organomegaly, No Pulsatile Mass, Non Tender, Soft Back: Normal Inspection, No CVA Tenderness, No Vertebral Tenderness Extremity: Normal Capillary Refill, Normal Inspection, Normal Range of Motion, Non Tender, No Calf Tenderness, No Pedal Edema Neurologic/Psychiatric: Alert, Oriented x3, No Motor/Sensory Deficits, Normal Mood/Affect, Disoriented Skin: Normal Color, Warm/Dry Lymphatic: No Adenopathy A/P-Cardiology Admission Diagnosis Dilated cardiomyopathy Hyponatremia Coronary artery disease Hypertension Assessment/Plan Dilated cardiomyopathy, chronic compensated left ventricular systolic dysfunction with ejection fraction 20-25 percent and pulmonary hypertension probably ischemic in nature. We need to be on diuretics. Hyponatremia, probably secondary to congestive heart failure. Monitor electrolytes closely. Coronary artery disease, history of CABG 6 done in the remote past, multiple stents done after the bypass. No recent cardiac workup. I will continue monitoring and evaluate EKG Hypertension, restart home medication monitor blood pressure Hyperlipidemia, maintained on simvastatin, monitor lipids History of pituitary tumor resection done last year. Clinical Quality Measures DVT/VTE Risk/Contraindication: Risk Factor Score Per Nursin RFS Level Per Nursing on Admit: 4+=Very High EDVIN ELLIOTT MD May 09, 2020 10:37
[2020-05-09 12:52] VITALS: BP 128/73
--- NOTE | 2020-05-09 13:04 | Progress Note - Hospitalist ---
Subjective HPI/CC On Admission Date Seen by Provider: May 09, 2020 Time Seen by Provider: 12:00 CC: Hyponatremia with diarrhea HPI: This is a 74yoWM with h/o pituitary tumor in the past who presents to the ER with weakness and diarrhea and found to have sodium level of 112. Unknown baseline of sodium level and he is a poor historian. [facility] records accessed: 06/05/2019: Will Ragsdale is a 73 y.o. 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 Du and Santo. Problem Obesity (BMI 30.0-34.9) E66.9 Jul, Active 062968430 Problem H yperlipidemia E78.5 Jan, Active 09498137 Problem Ischemic cardiomyopathy I25.5 Jan, Active 277458644 Problem Dilated cardiomyopathy I42.0 Dec, Active 874795207 Problem Hypoxia R09.02 Apr, Active 350164246 Problem Coronary atherosclerosis I25.10 Active 731741889 Problem Diastolic dysfunction without heart failure I51.89 Mar, Active Problem Debility R53.81 Jan, Active 24560863 Problem Nocturnal dyspnea R06.00 Jan, Active 992396297 Problem Benign hypertension I10 Active 33865682 Problem Hyperlipemia, mixed E78.2 Active 854760579 Problem Allergic rhinitis, unspecified seasonality, unspecified trigger J30.9 Active 95322613 Problem Prediabetes R73.03 Jan, Active 202324784 Problem Allergic rhinitis, unspecified seasonality, unspecified trigger J30.9 Active Problem Aortic root dilatation I77.810 Mar, Active 553585867 Problem Hyperlipidemia, unspecified E78.5 Active Problem Essential (primary) hypertension I10 Active Problem Athscl heart disease of [place] coronary artery w/o ang pctrs I25.10 Active Problem Seasonal allergic rhinitis, unspecified trigger J30.2 Active 098114723 Subjective/Events-last exam Sodium level 111 Changed IVF to hypertonic saline at 30cc/hr Dr Felipe and I conferred and he thinks CHF is a factor in hyponatremia als PT OT evaluation Rehab evaluation Review of Systems General: Fatigue, Malaise Objective Exam Vital Signs Vital Signs Date Time Temp Pulse Resp B/P (MAP) Pulse Ox O2 Delivery O2 Flow Rate FiO2 05/10/20 16:00 36.4 61 16 141/73 (95) 100 Room Air Capillary Refill : Less Than 3 Seconds General Appearance: No Apparent Distress, WD/WN, Chronically ill Respiratory: Chest Non Tender, Lungs Clear, Normal Breath Sounds, No Accessory Muscle Use, No Respiratory Distress Cardiovascular: Regular Rate, Rhythm, No Edema, No Gallop, No JVD, No Murmur, Normal Peripheral Pulses Neurologic/Psychiatric: Alert, Oriented x3, No Motor/Sensory Deficits, Normal Mood/Affect Results/Procedures Lab Laboratory Tests 05/10/20 05:55 Patient resulted labs reviewed. Assessment/Plan Assessment and Plan Assess & Plan/Chief Complaint Assessment: Severe hyponatremia Dehydration Diarrhea s/p transphenoidal pituitary adenoma resection 06/05/2019 Ischemic cardiomyopathy CHF Plan: IVF changed to hypertonic saline Salt tablets Regular diet Diagnosis/Problems Diagnosis/Problems (1) Hyponatremia Status: Acute (2) Diarrhea Status: Acute Qualifiers: Diarrhea type: unspecified type Qualified Codes: R19.7 - Diarrhea, unspecified (3) Hypertension Status: Chronic Clinical Quality Measures DVT/VTE Risk/Contraindication: Risk Factor Score Per Nursin RFS Level Per Nursing on Admit: 4+=Very High YANET DOMINGO DO May 09, 2020 13:04
[2020-05-09 15:30] VITALS: BP 121/66
[2020-05-09 17:46] LABS: CHLORIDE 84 MMOL/L (98-107); POTASSIUM 4.3 MMOL/L (3.6-5.0)
[2020-05-09 17:47] LABS: CALCIUM 8.3 MG/DL (8.5-10.1); GLUCOSE 87 MG/DL (70-105)
[2020-05-09 17:49] LABS: CARBON DIOXIDE 22 MMOL/L (21-32)
[2020-05-09 17:51] LABS: CREATININE SERUM 0.78 MG/DL (0.60-1.30); GFR ESTIMATED > 60
[2020-05-09 17:52] LABS: BUN/CREATININE RATIO 15
[2020-05-09 18:04] LABS: SODIUM 113 MMOL/L (135-145)
--- NOTE | 2020-05-09 18:04 | NUR ---
recv'd call from lab patients NA is critical 113. notified Dr Slater, no new orders as this is up from his previous NA of 111.
[2020-05-09 20:00] VITALS: BP 118/69
[2020-05-09] MEDS: LATANOPROST 0.005% (XALATAN) OPHTH SOLN 2.5 ML OU SCH (20:04)
[2020-05-09] MEDS: ENOXAPARIN 40 MG/0.4 ML (LOVENOX) SYR SC SCH (20:04)
[2020-05-10] VITALS: BP 112/55
[2020-05-10] MEDS: SODIUM CHLORIDE 3% 500 ML IV SCH ×2 (00:16→17:45)
[2020-05-10 04:00] VITALS: BP 158/60
[2020-05-10] MEDS: MAGNESIUM OXIDE (MAG-OX)400 MG TAB PO SCH (05:55)
[2020-05-10] MEDS: OMEGA 3 (FISH OIL) 1000 MG CAP PO SCH (05:56)
[2020-05-10 06:32] LABS: HEMOGLOBIN 10.9 g/dL (13.3-17.7); MEAN PLATELET VOLUME 10.2 fL (9.0-12.2); WHITE BLOOD COUNT 3.7 10^3/uL (4.3-11.0)
[2020-05-10 06:50] LABS: CHLORIDE 91 MMOL/L (98-107); POTASSIUM 4.2 MMOL/L (3.6-5.0)
[2020-05-10 06:51] LABS: CALCIUM 8.8 MG/DL (8.5-10.1)
[2020-05-10 06:52] LABS: GLUCOSE 77 MG/DL (70-105); SODIUM 121 MMOL/L (135-145); TOTAL PROTEIN 6.2 GM/DL (6.4-8.2)
[2020-05-10 06:53] LABS: CARBON DIOXIDE 22 MMOL/L (21-32)
[2020-05-10 06:54] LABS: BILIRUBIN,TOTAL 0.9 MG/DL (0.1-1.0)
[2020-05-10 06:55] LABS: ALKALINE PHOSPHATASE 44 U/L (40-136)
[2020-05-10 06:56] LABS: CREATININE SERUM 0.75 MG/DL (0.60-1.30); GFR ESTIMATED > 60
[2020-05-10 06:57] LABS: BUN/CREATININE RATIO 13
[2020-05-10 06:59] LABS: ALANINE AMINOTRANSFERASE 13 U/L (0-55)
[2020-05-10] MEDS: ASPIRIN E.C. 81 MG (ECOTRIN) TAB PO SCH (08:17)
[2020-05-10] MEDS: FUROSEMIDE 20 MG (LASIX) TAB PO SCH (08:17)
[2020-05-10] MEDS: LORATADINE (CLARITIN) 10 MG TAB PO SCH (08:18)
[2020-05-10] MEDS: SIMvastatin 20 MG (ZOCOR) TAB PO SCH (08:18)
[2020-05-10] MEDS: MELOXICAM 7.5 MG (MOBIC) TABLET PO SCH (08:18)
[2020-05-10] MEDS: CARVEDILOL 6.25 MG (COREG) TAB PO SCH (08:18)
[2020-05-10 08:21] VITALS: BP 140/74
--- NOTE | 2020-05-10 09:14 | Cardiology Progress Note ---
Subjective Date Seen by Provider: May 10, 2020 Time Seen by Provider: 09:12 Subjective/Events-last exam Patient is sitting in a chair, feeling better, reporting improvement. Review of Systems General: No Chills, No Night Sweats, No Fatigue, No Malaise, No Appetite, No Other HEENT: No Head Aches, No Visual Changes, No Eye Pain, No Ear Pain, No Dysphasia, No Sinus Congestion, No Post Nasal Drip, No Sore Throat, No Other Pulmonary: No Dyspnea, No Cough, No Pleuritic Chest Pain, No Other Cardiovascular: No: Chest Pain, Palpitations, Orthopnea, Paroxysmal Noc. Dyspnea, Edema, Lt Headedness, Other Objective-Cardiology Exam Last Set of Vital Signs Vital Signs 05/10/20 08:21 Temp 36.6 Pulse 71 Resp 18 B/P (MAP) 140/74 (96) Pulse Ox 98 O2 Delivery Room Air Capillary Refill : Less Than 3 Seconds I&O Intake and Output 05/10/20 00:00 Intake Total 3000 ml Output Total 600 ml Balance 2400 ml Intake Oral 1000 ml IV Total 2000 ml Output Urine Total 600 ml # Voids 2 General: Alert, Oriented X3, Cooperative HEENT: Atraumatic, PERRLA Neck: Supple, No JVD, No Thyromegaly Lungs: Clear to Auscultation, Normal Air Movement Heart: Regular Rate, Normal S1, Normal S2, No Murmurs Abdomen: Normal Bowel Sounds, Soft, No Tenderness, No Hepatosplenomegaly, No Masses Extremities: No Clubbing, No Cyanosis, No Edema, Normal Pulses, No Tenderness/Swelling Skin: No Rashes, No Breakdown, No Significant Lesion Neuro: Normal Gait, Normal Speech, Strength at 5/5 X4 Ext, Normal Tone, Sensation Intact Psych/Mental Status: Mental Status NL, Mood NL Results Lab Laboratory Tests 05/09/20 17:18 05/10/20 05:55 A/P-Cardiology Admission Diagnosis Dilated cardiomyopathy Hyponatremia Coronary artery disease Hypertension Assessment/Plan Dilated cardiomyopathy, chronic compensated left ventricular systolic dysfunction with ejection fraction 20-25 percent and pulmonary hypertension probably ischemic in nature. Continue to monitor Hyponatremia, probably secondary to congestive heart failure. Monitor electrolytes closely. Coronary artery disease, history of CABG 6 done in the remote past, multiple stents done after the bypass. No recent cardiac workup. Troponin is negative. Consider stress test as an outpatient Hypertension, continue to monitor blood pressure Hyperlipidemia, maintained on simvastatin, monitor lipids History of pituitary tumor resection done last year. Clinical Quality Measures DVT/VTE Risk/Contraindication: Risk Factor Score Per Nursin RFS Level Per Nursing on Admit: 4+=Very High EDVIN ELLIOTT MD May 10, 2020 09:14
[2020-05-10] MEDS: SODIUM CHLORIDE 1 GM TABLET PO SCH ×2 (09:41→20:31)
[2020-05-10 11:42] VITALS: BP 129/61
--- NOTE | 2020-05-10 12:11 | Progress Note - Hospitalist ---
Subjective HPI/CC On Admission Date Seen by Provider: May 10, 2020 Time Seen by Provider: 11:30 CC: Hyponatremia with diarrhea HPI: This is a 74yoWM with h/o pituitary tumor in the past who presents to the ER with weakness and diarrhea and found to have sodium level of 112. Unknown baseline of sodium level and he is a poor historian. [facility] records accessed: 06/05/2019: Will Ragsdale is a 73 y.o. 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 Du and Santo. Problem Obesity (BMI 30.0-34.9) E66.9 Jul, Active 819641130 Problem Hy perlipidemia E78.5 Jan, Active 19166534 Problem Ischemic cardiomyopathy I25.5 Jan, Active 754104154 Problem Dilated cardiomyopathy I42.0 Dec, Active 077157663 Problem Hypoxia R09.02 Apr, Active 855729484 Problem Coronary atherosclerosis I25.10 Active 791242866 Problem Diastolic dysfunction without heart failure I51.89 Mar, Active Problem Debility R53.81 Jan, Active 15735019 Problem Nocturnal dyspnea R06.00 Jan, Active 072775701 Problem Benign hypertension I10 Active 75452214 Problem Hyperlipemia, mixed E78.2 Active 854281195 Problem Allergic rhinitis, unspecified seasonality, unspecified trigger J30.9 Active 22250992 Problem Prediabetes R73.03 Jan, Active 084911205 Problem Allergic rhinitis, unspecified seasonality, unspecified trigger J30.9 Active Problem Aortic root dilatation I77.810 Mar, Active 785568402 Problem Hyperlipidemia, unspecified E78.5 Active Problem Essential (primary) hypertension I10 Active Problem Athscl heart disease of [place] coronary artery w/o ang pctrs I25.10 Active Problem Seasonal allergic rhinitis, unspecified trigger J30.2 Active 249958308 Subjective/Events-last exam Sodium level is 121 Hypertonic saline tolerated well Monitor closely PT OT Rehab eval Review of Systems General: Fatigue Objective Exam Vital Signs Vital Signs Date Time Temp Pulse Resp B/P (MAP) Pulse Ox O2 Delivery O2 Flow Rate FiO2 05/10/20 16:00 36.4 61 16 141/73 (95) 100 Room Air Capillary Refill : Less Than 3 Seconds General Appearance: No Apparent Distress, WD/WN Respiratory: Chest Non Tender, Lungs Clear, Normal Breath Sounds, No Accessory Muscle Use, No Respiratory Distress Cardiovascular: Regular Rate, Rhythm, No Edema, No Gallop, No JVD, No Murmur, Normal Peripheral Pulses Neurologic/Psychiatric: Alert, Oriented x3, No Motor/Sensory Deficits, Normal Mood/Affect Results/Procedures Lab Laboratory Tests 05/10/20 05:55 Patient resulted labs reviewed. Assessment/Plan Assessment and Plan Assess & Plan/Chief Complaint Assessment: Hyponatremia Pituitary adenoma resection 05/2019 CHF Dementia? Plan: Monitor labs Monitor BP Diagnosis/Problems Diagnosis/Problems (1) Hyponatremia Status: Acute (2) Diarrhea Status: Acute Qualifiers: Diarrhea type: unspecified type Qualified Codes: R19.7 - Diarrhea, unspecified (3) Hypertension Status: Chronic Clinical Quality Measures DVT/VTE Risk/Contraindication: Risk Factor Score Per Nursin RFS Level Per Nursing on Admit: 4+=Very High YANET DOMINGO DO May 10, 2020 12:11
[2020-05-10 16:00] VITALS: BP 141/73
[2020-05-10] MEDS: ENOXAPARIN 40 MG/0.4 ML (LOVENOX) SYR SC SCH (19:43)
[2020-05-10 20:00] VITALS: BP 135/72
[2020-05-10] MEDS: LATANOPROST 0.005% (XALATAN) OPHTH SOLN 2.5 ML OU SCH (20:32)
[2020-05-11] VITALS: BP 138/68
[2020-05-11 03:44] VITALS: BP 134/60
[2020-05-11 05:02] LABS: BASOPHILS # (AUTO) 0.1 10^3/uL (0.0-0.1); BASOPHILS % (AUTO) 1 % (0-10); EOSINOPHILS # (AUTO) 0.2 10^3/uL (0.0-0.3); EOSINOPHILS % (AUTO) 6 % (0-10); HEMATOCRIT 30 % (40-54); HEMOGLOBIN 10.7 g/dL (13.3-17.7); LYMPHOCYTES # (AUTO) 1.6 10^3/uL (1.0-4.0); LYMPHOCYTES % (AUTO) 43 % (12-44); MEAN CORPUSCULAR HEMOGLOBIN 32 pg (25-34); MEAN CORPUSCULAR HGB CONC 36 g/dL (32-36); MEAN CORPUSCULAR VOLUME 90 fL (80-99); MONOCYTES # (AUTO) 0.5 10^3/uL (0.0-1.0); MONOCYTES % (AUTO) 14 % (0-12); NEUTROPHILS # (AUTO) 1.3 10^3/uL (1.8-7.8); NEUTROPHILS % (AUTO) 36 % (42-75); PLATELET COUNT 212 10^3/uL (130-400); WHITE BLOOD COUNT 3.6 10^3/uL (4.3-11.0)
[2020-05-11 05:16] LABS: ALBUMIN 3.8 GM/DL (3.2-4.5)
[2020-05-11 05:17] LABS: CHLORIDE 100 MMOL/L (98-107); POTASSIUM 3.9 MMOL/L (3.6-5.0); SODIUM 129 MMOL/L (135-145)
[2020-05-11 05:18] LABS: CALCIUM 8.4 MG/DL (8.5-10.1)
[2020-05-11 05:19] LABS: GLUCOSE 78 MG/DL (70-105); TOTAL PROTEIN 5.8 GM/DL (6.4-8.2)
[2020-05-11 05:20] LABS: CARBON DIOXIDE 21 MMOL/L (21-32)
[2020-05-11 05:21] LABS: BILIRUBIN,TOTAL 0.6 MG/DL (0.1-1.0)
[2020-05-11 05:23] LABS: ALKALINE PHOSPHATASE 42 U/L (40-136); CREATININE SERUM 0.81 MG/DL (0.60-1.30); GFR ESTIMATED > 60
[2020-05-11 05:24] LABS: BUN/CREATININE RATIO 14
[2020-05-11 05:26] LABS: ALANINE AMINOTRANSFERASE 14 U/L (0-55)
[2020-05-11] MEDS: OMEGA 3 (FISH OIL) 1000 MG CAP PO SCH (06:26)
[2020-05-11] MEDS: MAGNESIUM OXIDE (MAG-OX)400 MG TAB PO SCH (06:26)
[2020-05-11 07:46] VITALS: BP 135/72
[2020-05-11] MEDS: SODIUM CHLORIDE 1 GM TABLET PO SCH (08:25)
[2020-05-11] MEDS: MELOXICAM 7.5 MG (MOBIC) TABLET PO SCH (08:26)
[2020-05-11] MEDS: FUROSEMIDE 20 MG (LASIX) TAB PO SCH (08:26)
[2020-05-11] MEDS: ASPIRIN E.C. 81 MG (ECOTRIN) TAB PO SCH (08:26)
[2020-05-11] MEDS: SIMvastatin 20 MG (ZOCOR) TAB PO SCH (08:26)
[2020-05-11] MEDS: CARVEDILOL 6.25 MG (COREG) TAB PO SCH (08:26)
[2020-05-11] MEDS: LORATADINE (CLARITIN) 10 MG TAB PO SCH (08:26)
--- NOTE | 2020-05-11 09:20 | NUR ---
CM DISCHARGE PLANNING: Dr. Slater indicated that the patient will need home health care at discharge. Visited with Will and he reports that he has used [facility] in the past and would like to use them again. Referral faxed and will contact by phone to confirm that they will be able to accept him on service.
[2020-05-11] MEDS ORDERED: NF-NACL1GT PO (09:50)
--- NOTE | 2020-05-11 09:51 | D/C HH Face to Face Order ---
D/C Face to Face Orders Reconcile Patient Problems Problems Reviewed?: Yes Instructions for Patient Home Health Patient Instructions/FollowUp: [facility] this week Physician to follow Patient: [facility] Discharge Diet for Home: Cardiac Diet, other diet (fluid restriction 1000cc/day) Patient Problems: Hyponatremia CHF Patient Data-Allergies,Ht & Wt Patient Allergies: Coded Allergies: Penicillins (Unverified Allergy, Unknown, 05/20/19) Height (Feet): 5 Height (Inches): 8.00 Weight (Pounds): 196 Weight (Ounces): 0 Home Health Need/Face to Face Date of Face to Face: May 11, 2020 Clinical Findings: Generalized weakness and fatigue, Instability, Muscle weakness I have seen Pt [id number]: Yes Discharged To: Home Diagnosis/Conditions: Hyponatremia Patient is Homebound due to: Muscle weakness Homebound Status Due to the above stated illness, injury or surgical procedure (medical condition or diagnosis) and associated clinical findings, the patient is homebound because of his/her inability to leave home except with aid of a supportive device and/or person AND leaving the home requires a considerable and taxing effort or is medically contraindicated. Pt req the following assistanc: [facility] Nursing Orders Home Health Services Order: Nursing Services, Host Coordinator-Evaluate & Treat, Physical Therapy-Evaluate & Treat Home Health Infusion Therapy Line Start Date: May 08, 2020 Certify Stmt I certify that this patient is under my care and that I, a nurse practitioner or a physician; a life enrichment assistant working with me, had a face to face encounter that - meets the physician face to face encounter requirements with this patient as dated. YANET DOMINGO DO May 11, 2020 09:51
--- NOTE | 2020-05-11 09:51 | Discharge Summary ---
Discharge Summary Hospital Course Was the Problem List Reviewed?: Yes Problems/Dx: (1) Hyponatremia Status: Acute (2) Diarrhea Status: Acute Qualifiers: Qualified Codes: R19.7 - Diarrhea, unspecified (3) Hypertension Status: Chronic Hospital Course Date of Admission: May 08, 2020 at 17:23 Admission Diagnosis : Family Physician/Provider: Sharyn Benavides Aprn Date of Discharge: 05/11/20 Discharge Diagnosis: Assessment: Hyponatremia Pituitary adenoma resection 05/2019 CHF Dementia? Plan: Monitor labs Monitor BP Hospital Course: Hospital course: Pt had a brief hospital course after he was admitted Monday for severe hyponatremia of 111 from diarrhea and a history of hyponatremia from pituitary adenoma resection a year ago. Dr. Felipe was consulted for ischemic cardiomyopathy history, he required hypertonic Saline in order to get his sodium level up to 121 and at discharge it was 129. I did order home health. He was discharge in improved condition. Labs and Pending Lab Test: Laboratory Tests 05/11/20 04:25: White Blood Count 3.6L, Red Blood Count 3.33L, Hemoglobin 10.7L, Hematocrit 30L, Mean Corpuscular Volume 90, Mean Corpuscular Hemoglobin 32, Mean Corpuscular Hemoglobin Concent 36, Red Cell Distribution Width 12.9, Platelet Count 212, Mean Platelet Volume 10.0, Immature Granulocyte % (Auto) 0, Neutrophils (%) (Auto) 36L, Lymphocytes (%) (Auto) 43, Monocytes (%) (Auto) 14H, Eosinophils (%) (Auto) 6, Basophils (%) (Auto) 1, Neutrophils # (Auto) 1.3L, Lymphocytes # (Auto) 1.6, Monocytes # (Auto) 0.5, Eosinophils # (Auto) 0.2, Basophils # (Auto) 0.1, Immature Granulocyte # (Auto) 0.0, Sodium Level 129L, Potassium Level 3.9, Chloride Level 100, Carbon Dioxide Level 21, Anion Gap 8, Blood Urea Nitrogen 11, Creatinine 0.81, Estimat Glomerular Filtration Rate > 60, BUN/Creatinine Ratio 14, Glucose Level 78, Calcium Level 8.4L, Corrected Calcium 8.6, Total Bilirubin 0.6, Aspartate Amino Transf (AST/SGOT) 23, Alanine Aminotransferase (ALT/SGPT) 14, Alkaline Phosphatase 42, Total Protein 5.8L, Albumin 3.8 Home Meds Active Sodium Chloride 1 Gm Tab 1 Gm PO BID Reported Meloxicam 15 Mg Tablet 15 Mg PO DAILY Lisinopril 10 Mg Tablet 10 Mg PO BID PRN ONLY TAKES A DOSE WHEN BLOOD PRESSURE IS RAISED Fish Oil 1,000 mg Capsule ([place] 3 Polyunsat Fatty Acids) 1,000 Mg Cap 2,000 Mg PO DAILY Latanoprost 0.005% Eye Drop (Latanoprost/Pf) 7.5 Ml Drops 1 Drop OU HS Cetirizine HCl 10 Mg Tablet 10 Mg PO DAILY Low Dose Aspirin EC (Aspirin) 81 Mg Tablet.dr 81 Mg PO DAILY Simvastatin 20 Mg Tablet 20 Mg PO DAILY Magnesium Oxide 400 Mg Tablet 400 Mg PO DAILY Carvedilol 6.25 Mg Tablet 6.25 Mg PO DAILY Furosemide 20 Mg Tablet 20 Mg PO DAILY Potassium Citrate ER (Potassium Citrate) 10 Meq Tablet.er 10 Meq PO DAILY Assessment/Pt Instructions chc 1 week Discharge Planning: <30 minutes discharge planning Discharge Instructions Discharge Diet: No Restrictions Activity as Tolerated: Yes Discharge Physical Examination Vital Signs Vital Signs Date Time Temp Pulse Resp B/P (MAP) Pulse Ox O2 Delivery O2 Flow Rate FiO2 05/11/20 08:00 Room Air 05/11/20 07:46 36.1 82 16 135/72 (93) 99 General Appearance: No Apparent Distress, Chronically ill Respiratory: Normal Breath Sounds Cardiovascular: Regular Rate, Rhythm Neurologic/Psychiatric: Alert, Oriented x3 Allergies: Coded Allergies: Penicillins (Unverified Allergy, Unknown, 05/20/19) Discharge Summary Date of Admission May 08, 2020 at 17:23 Date of Discharge Discharge Date: May 11, 2020 Admission Diagnosis Assessment: Severe hyponatremia Dehydration Diarrhea s/p transphenoidal pituitary adenoma resection 06/05/2019 Ischemic cardiomyopathy CHF Plan: IVF Salt tablets Regular diet Problem Obesity (BMI 30.0-34.9) E66.9 07 Jul, 2015 Active 976779197 Problem Hyperlipidemia E78.5 Jan, Active 07209066 Problem Ischemic cardiomyopathy I25.5 Jan, Active 356967243 Problem Dilated cardiomyopathy I42.0 Dec, Active 831251223 Problem Hypoxia R09.02 Apr, Active 946811611 Problem Coronary atherosclerosis I25.10 Active 578001842 Problem Diastolic dysfunction without heart failure I51.89 10 Mar, 2018 Active Problem Debility R53.81 Jan, Active 46682550 Problem Nocturnal dyspnea R06.00 Jan, Active 484412020 Problem Benign hypertension I10 Active 76950637 Problem Hyperlipemia, mixed E78.2 Active 958587443 Problem Allergic rhinitis, unspecified seasonality, unspecified trigger J30.9 Active 90782540 Problem Prediabetes R73.03 Jan, Active 378746813 Problem Allergic rhinitis, unspecified seasonality, unspecified trigger J30.9 Active Problem Aortic root dilatation I77.810 Mar, Active 449344359 Problem Hyperlipidemia, unspecified E78.5 Active Problem Essential (primary) hypertension I10 Active Problem Athscl heart disease of [place] coronary artery w/o ang pctrs I25.10 Active Problem Seasonal allergic rhinitis, unspecified trigger J30.2 Active 854750710 Discharge Diagnosis Assessment: Hyponatremia Pituitary adenoma resection 05/2019 CHF Dementia? Plan: Monitor labs Monitor BP (1) Hyponatremia Status: Acute (2) Diarrhea Status: Acute Qualifiers: Qualified Codes: R19.7 - Diarrhea, unspecified (3) Hypertension Status: Chronic Clinical Quality Measures DVT/VTE Risk/Contraindication: Risk Factor Score Per Nursin RFS Level Per Nursing on Admit: 4+=Very High YANET DOMINGO DO May 11, 2020 09:51
--- NOTE | 2020-05-11 09:57 | NUR ---
IRF Evaluation Discontinuation of evaluation. Notified by Dr. Slater patient will be dismissing home today. Thank you for this referral.
--- NOTE | 2020-05-11 10:20 | NUR ---
CM FINALIZED DC PLAN: Patient is dismissing to home today with [facility] for Nursing, Physical Therapy, and Occupational Therapy. Talked with Abe at [facility] and he indicates that they will start his service on Monday05/13/20. Updated the patient and primary care nurse. No further needs or concerns voiced.
--- NOTE | 2020-05-11 10:22 | Cardiology Progress Note ---
Subjective Date Seen by Provider: May 11, 2020 Time Seen by Provider: 10:21 Subjective/Events-last exam Patient is sitting up in chair, denies any chest pain or dyspnea. Objective-Cardiology Exam Last Set of Vital Signs Vital Signs 05/11/20 05/11/20 07:46 08:00 Temp 36.1 Pulse 82 Resp 16 B/P (MAP) 135/72 (93) Pulse Ox 99 O2 Delivery Room Air Capillary Refill : Less Than 3 Seconds I&O Intake and Output 05/11/20 00:00 Intake Total 1100 ml Balance 1100 ml Intake Oral 600 ml IV Total 500 ml # Voids 12 # Bowel Movements 7 General: Alert, Oriented X3, Cooperative HEENT: Atraumatic, PERRLA Neck: Supple, No JVD, No Thyromegaly Lungs: Clear to Auscultation, Normal Air Movement Heart: Regular Rate, Normal S1, Normal S2, No Murmurs Abdomen: Normal Bowel Sounds, Soft, No Tenderness, No Hepatosplenomegaly, No Masses Extremities: No Clubbing, No Cyanosis, No Edema, Normal Pulses, No Tenderness/Swelling Skin: No Rashes, No Breakdown, No Significant Lesion Neuro: Normal Gait, Normal Speech, Strength at 5/5 X4 Ext, Normal Tone, Sensation Intact Psych/Mental Status: Mental Status NL, Mood NL Results Lab Laboratory Tests 05/11/20 04:25 A/P-Cardiology Admission Diagnosis Dilated cardiomyopathy Hyponatremia Coronary artery disease Hypertension Assessment/Plan Dilated cardiomyopathy, chronic compensated left ventricular systolic dysfunction with ejection fraction 20-25 percent and pulmonary hypertension probably ischemic in nature. Continue to monitor Hyponatremia, probably secondary to congestive heart failure. Improving. Monitor electrolytes closely. Coronary artery disease, history of CABG 6 done in the remote past, multiple s tents done after the bypass. No recent cardiac workup. Troponin is negative. Consider stress test as an outpatient Hypertension, continue to monitor blood pressure Hyperlipidemia, maintained on simvastatin, monitor lipids History of pituitary tumor resection done last year. Patient was seen and evaluated with Davida, examination performed, management plan was discussed, agree with the current scribed note, I made few changes to the note using Italic font Patient was seen and evaluated at bedside, sitting comfortably Okay for discharge, feeling better Arrange for follow-up as an outpatient with the primary grant writer Clinical Quality Measures DVT/VTE Risk/Contraindication: Risk Factor Score Per Nursin RFS Level Per Nursing on Admit: 4+=Very High DAVIDA GRAYSON May 11, 2020 10:22 EDVIN ELLIOTT MD May 11, 2020 12:13
--- NOTE | 2020-05-11 10:51 | Physical Therapy Evaluation ---
PT Evaluation-General Medical Diagnosis Admission Date May 08, 2020 at 17:23 Medical Diagnosis: hyponatremia/diarrhea Onset Date: May 08, 2020 Therapy Diagnosis Therapy Diagnosis: debility Height/Weight Height (Feet): 5 Height (Inches): 8.00 Weight (Pounds): 196 Weight (Ounces): 0 Precautions Precautions/Isolations: Seizure, Standard Precautions Referral Physician: Bryon Reason for Referral: Evaluation/Treatment Medical History Pertinent Medical History: CABG, Heart Failure, HTN, [place] Current History ER with abdominal cramping Reviewed History: Yes Social History Home: Single Level Current Living Status: Alone Entry Into Home: Stairs With Railing PT Steps Into Home: 4 Prior Prior Level of Function SCALE: Activities may be completed with or without assistive devices. 7-Zusatqfnfp-mqfqtlr completes the activity by him/herself with no assistance from a helper. 5-Set-up or Clean-up Assistance-helper sets up or cleans up; patient completes activity. [place] assists only prior to or following the activity. 4-Supervision or Touching Assistance-helper provides verbal cues and/or touching/steadying and/or contact guard assistance as patient completes activity. Assistance may be provided throughout the activity or intermittently. 3-Partial/Moderate Assistance-helper does LESS THAN HALF the effort. [place] lifts, holds or supports trunk or limbs, but provides less than half the effort. 2-Substantial/Maximal Assistance-helper does MORE THAN HALF the effort. [place] lifts or holds trunk or limbs and provides more than half the effort. 3-Hvpktxmvq-kruuzd does ALL the effort. Patient does none of the effort to complete the activity. Or, the assistance of 2 or more helpers is required for the patient to complete the activity. If activity was not attempted, code reason: 7-Patient Refused. 9-Not Applicable-not attempted and the patient did not perform the activity bef ore the current illness, exacerbation or injury. 10-Not Attempted due to Environmental Limitations-(lack of equipment, weather r estraints, etc.). 88-Not Attempted due to Medical Conditions or Safety Concerns. Bed Mobility: 6 Transfers (B,C,W/C): 6 Gait: 6 Stairs: 6 Indoor Mobility (Ambulation): Independent Stairs: Independent Prior Devices Use: None has FWW at home but does not utilize per patient report PT Evaluation-Current Subjective Patient agrees to PT. He states he is going home today. Objective Patient Orientation: Normal For Age ROM/Strength ROM Lower Extremities bilateral LE WFL Strength Lower Extremities 4/5 grossly bilateral LE Integumentary/Posture Integumentary refer to nursing notes Bowel Incontinence: No Posture flexed knee and trunk posture Neuromuscular (Tone, Coordination, Reflexes) grossly intact Sensory Vision: Functional Hearing: Functional Transfers Roll Left to Right (QC): 6 Sit to Lying (QC): 6 Lying to Sitting/Side of Bed(Q: 6 Sit to Stand (QC): 6 Chair/Hri-cp-Pkodb Xfer(QC): 6 Gait Does the Patient Walk?: Yes Mode of Locomotion: Walk Anticipated Mode of Locomotion: Walk Walk 10 feet (QC): 6 Walk 50 ft with 2 Turns(QC): 6 Walk 150 ft (QC): 6 Distance: 300' x 2 Gait Assistive Device: None Stairs #of Steps: 4 1 Step (curb) (QC): 5 4 Steps (QC): 5 12 Steps (QC): 9 Balance Sitting Static: Normal Sitting Dynamic: Normal Standing Static: Normal Standing Dynamic: Normal Assessment/Needs 74 y.o. male, will dismiss to home and receive home health therapy to ensure safe return to home environment. Rehab Potential: Fair PT Plan Treatment/Plan Treatment Plan: Discontinue PT, goals met Treatment Duration: May 11, 2020 Frequency: 1 time per week Estimated Hrs Per Day: .25 hour per day Patient and/or Family Agrees t: Yes Time/GCodes Time In: 1000 Time Out: 1012 Total Billed Treatment Time: 12 [facility] LEV[facility] May 11, 2020 10:50
--- NOTE | 2020-05-11 10:59 | NUR ---
pt discharged from med surg unit at 1050. CPT, Mercedes, took him down in w/c to ed door where ride was waiting for him. pt had all personal belongings and d/c paperwork. he had also signed paper for d/c and this rn put it in his chart. no c/o pain. he is aware of hh orders and to pick med at pharmacy. iv discontinued from left wrist with tip intact .
--- NOTE | 2020-05-11 11:08 | Progress Note ---
JO VASQUEZ MED STUDENT 05/11/20 1108: Progress Note Mr. Ragsdale is a 74 year old male admitted to via [facility] on 05-08-2020 for weakness, diarrhea, and hyponatremia. His initial sodium was found to be 112. He has a history of a pituitary adenoma for which he had a transphenoidal resection 05/2019, HTN, CAD, CABG, dilated cardiomyopathy, and panhypopituitarism. His sodium has since corrected after receiving appropriate therapy during his stay. He is now doing well enough that he is going to be discharged to home with some home health. He appears to be back to his baseline health and is ready to go home. BRISA DOMINGO DO 05/12/20 0525: Supervisory-Addendum Brief Verification & Attestation Participated in pt care: history, MDM, physical Personally performed: exam, history, MDM, supervision of care Care discussed with: Medical Student Procedures: n/a Results interpretation: Verified all documentation Verification and Attestation of Medical Student E/M Service A medical student performed and documented this service in my presence. I reviewed and verified all information documented by the medical student and made modifications to such information, when appropriate. I personally performed the physical exam and medical decision making. Brisa Domingo, May 12, 2020,05:25 JO VASQUEZ MED STUDENT May 11, 2020 11:08 RBISA DOMINGO DO May 12, 2020 05:25
== END 2020-05-11 10:50 | disposition home health service (06) | DRG 641 ==
LOC: EDUNIT# 13:28 → ER FS 13:31 → 4TH 17:23
PROVIDERS: ADMIT Internal Medicine; ATTEND Internal Medicine
DX: E87.1 Hypo-osmolality and hyponatremia (principal); I42.0 Dilated cardiomyopathy; I50.22 Chronic systolic (congestive) heart failure; E86.0 Dehydration; R19.7 Diarrhea, unspecified; I25.5 Ischemic cardiomyopathy; I11.0 Hypertensive heart disease with heart failure; E89.3 Postprocedural hypopituitarism; I27.20 Pulmonary hypertension, unspecified; I25.10 Atherosclerotic heart disease of native coronary artery without angina pectoris; F03.90 Unspecified dementia, unspecified severity, without behavioral disturbance, psychotic disturbance, mood disturbance, and anxiety; E78.00 Pure hypercholesterolemia, unspecified; E78.2 Mixed hyperlipidemia; Z87.891 Personal history of nicotine dependence; I25.2 Old myocardial infarction; Z95.1 Presence of aortocoronary bypass graft; Z95.5 Presence of coronary angioplasty implant and graft
CPT/HCPCS: 36415; 74022; 80048; 80053; 81000; 83690; 84443; 84484; 85025; 85027; 93306

== ENCOUNTER → 2020-05-25 | Outpatient (CLI) | payer MEDICARE, OTHER ==
[~2020-05-25] MED LIST changes: +LATA2.5D5 OU; +LISI10TA2 PO; +MELO15TA39 PO; +NF-NACL1GT PO
--- NOTE | 2020-05-25 13:43 | Diagnostic Imaging Report ---
INDICATION: Abdominal pain. FINDINGS: The bowel gas pattern is nonspecific. There is cholelithiasis. There is no free air. There are mild degenerative changes of the spine. IMPRESSION: Nonspecific bowel gas pattern. Cholelithiasis. Dictated by: Dictated on workstation # [id number]
== END ==
LOC: RAD FS 12:11
PROVIDERS: ATTEND Nurse Practitioner Family
DX: R19.7 Diarrhea, unspecified (principal); R10.9 Unspecified abdominal pain; R14.0 Abdominal distension (gaseous)
CPT/HCPCS: 74019

== ENCOUNTER 2020-05-27 03:36 | Inpatient (IN) | payer MEDICARE, OTHER ==
[~2020-05-27] VITALS: Ht 170 cm; Wt 87.9 kg
[~2020-05-27 03:36] MED LIST changes: -LATA2.5D5 OU
[2020-05-27] MEDS ORDERED: LIDOCAINE 2% VISCOUS 15 ML UDC PO ONE (04:00)
[2020-05-27] MEDS ORDERED: ONDANSETRON 4 MG/2 ML (SDV) Z0FRAN IVP ONE (04:00)
[2020-05-27] MEDS ORDERED: ANTACID SUSP 30 ML UDC (MYLANTA) PO ONE (04:00)
[2020-05-27] MEDS ORDERED: PANTOPRAZOLE 40 MG (PROTONIX) VIAL IV ONE (04:00)
[2020-05-27] MEDS ORDERED: LACTATED RINGERS 1,000 ML IV ONE (04:01)
--- NOTE | 2020-05-27 04:01 | ED GI ---
General Stated Complaint: ABD PAIN Source of Information: Patient Exam Limitations: No Limitations History of Present Illness Date Seen by Provider: May 27, 2020 Time Seen by Provider: 03:41 Initial Comments The patient presents to ER by private conveyance with a couple of friends of the family from [place] with chief complaint that he's having some epigastric abdominal discomfort reflux in the back of his throat, nausea without vomiting and some loose stools for the past 3 days. He rates the pain as [id number]. He is an exquisitely poor historian however she does give us a history that he has not had any changes in medication since his hospitalization about 2 weeks ago for similar symptoms. At that time he was hospitalized for hyponatremia thought to be related to diarrhea of uncertain source. He denies dysuria fever chills cough shortness of air or sick contacts. He denies ever having colonoscopy or EGD. He had follow-up with his primary care provider who obtained some more blood results and x-rays of his abdomen but he has not received the results yet. X-ray of his abdomen from 05/25 unremarkable. He had acute abdominal series 2 weeks ago at the ER in [place]. He gives no reason why he did not return to the [place] ER tonight. Echocardiogram [address] Felipe: EF of 25-30% with grade 2 diastolic dysfunction. Severe diffuse hypokinesis. Ueax-fi-[id number] mitral regurg. Moderate to severe tricuspid regurg. Allergies and Home Medications Allergies Coded Allergies: Penicillins (Unverified Allergy, Unknown, 05/20/19) Home Medications Aspirin 81 Mg Tablet.dr, 81 MG PO DAILY, (Reported) Carvedilol 6.25 Mg Tablet, 6.25 MG PO DAILY, (Reported) Cetirizine HCl 10 Mg Tablet, 10 MG PO DAILY, (Reported) Furosemide 20 Mg Tablet, 20 MG PO DAILY, (Reported) Latanoprost/Pf 7.5 Ml Drops, 1 DROP OU HS, (Reported) Lisinopril 10 Mg Tablet, 10 MG PO BID PRN for BLOOD PRESSURE, (Reported) ONLY TAKES A DOSE WHEN BLOOD PRESSURE IS RAISED Magnesium Oxide 400 Mg Tablet, 400 MG PO DAILY, (Reported) Meloxicam 15 Mg Tablet, 15 MG PO DAILY, (Reported) [place] 3 Polyunsat Fatty Acids 1,000 Mg Cap, 2,000 MG PO DAILY, (Reported) Potassium Citrate 10 Meq Tablet.er, 10 MEQ PO DAILY, (Reported) Simvastatin 20 Mg Tablet, 20 MG PO DAILY, (Reported) Sodium Chloride 1 Gm Tab, 1 GM PO BID Prescribed by: YANET DOMINGO on 05/11/20 0837 Patient Home Medication List Home Medication List Reviewed: Yes Review of Systems Review of Systems Constitutional: No chills, No fever, No malaise EENTM: No Blurred Vision, No Double Vision Respiratory: Denies Cough, Denies Shortness of Air Cardiovascular: Denies Chest Pain, Denies Edema Gastrointestinal: See HPI, Abdominal Pain; Denies Constipated; Diarrhea, Nausea; Denies Poor Fluid Intake, Denies Vomiting Genitourinary: Denies Burning, Denies Discharge Musculoskeletal: No back pain, No joint pain Skin: No pruritus, No rash All Other Systems Reviewed Negative Unless Noted: Yes Past Hihkbbz-Jpbsfs-Hewmge Hx Patient Social History Alcohol Use: Denies Use Recreational Drug Use: No Smoking Status: Never a Smoker 2nd Hand Smoke Exposure: No Recent Foreign Travel: No Contact w/Someone Who Travel: No Recent Hopitalizations: No Immunizations Up To Date Date of Pneumonia Vaccine: May 08, 2019 Seasonal Allergies Seasonal Allergies: Yes Past Medical History Surgeries: Yes CABG Respiratory: No Cardiac: Yes Heart Attack, High Cholesterol, Hypertension Neurological: No Genitourinary: No Gastrointestinal: No Musculoskeletal: No Endocrine: Yes (Hx Pituitary tumor along with hyponatremia) Pituitary Disease HEENT: No Cancer: No Psychosocial: No Integumentary: No Blood Disorders: No Family Medical History Hypertension 19 FATHER Physical Exam Vital Signs Vital Signs - First Documented 05/27/20 03:45 Temp 35.6 Pulse 70 Resp 16 B/P (MAP) 133/88 (103) O2 Delivery Room Air Capillary Refill : Height/Weight/BMI Height: 5'8.00" Weight: 196lbs. 0oz. [id number]; 28.90 BMI Method:Stated General Appearance: WD/WN, mild distress HEENT: PERRL/EOMI, pharynx normal Neck: full range of motion, normal inspection Respiratory: no respiratory distress, no accessory muscle use Cardiovascular: normal peripheral pulses, regular rate, rhythm, no edema Gastrointestinal: normal bowel sounds, soft, tenderness (epigastric region with negative Flynn sign, McBurney's point tenderness or Rovsing sign. No mesenteric signs. Mild discomfort right upper quadrant to palpation) Extremities: normal inspection, normal capillary refill Neurologic/Psychiatric: no motor/sensory deficits, alert, normal mood/affect, oriented x 3 Skin: normal color, warm/dry Progress/Results/Core Measures Results/Orders Lab Results Laboratory Tests Test 05/27/20 04:00 Range/Units White Blood Count 5.5 4.3-11.0 10^3/uL Red Blood Count 3.47 L 4.30-5.52 10^6/uL Hemoglobin 11.2 L 13.3-17.7 g/dL Hematocrit 32 L 40-54 % Mean Corpuscular Volume 93 80-99 fL Mean Corpuscular Hemoglobin 32 25-34 pg Mean Corpuscular Hemoglobin Concent 35 32-36 g/dL Red Cell Distribution Width 13.9 10.0-14.5 % Platelet Count 270 130-400 10^3/uL Mean Platelet Volume 10.5 9.0-12.2 fL Immature Granulocyte % (Auto) 0 % Neutrophils (%) (Auto) 37 L 42-75 % Lymphocytes (%) (Auto) 45 H 12-44 % Monocytes (%) (Auto) 9 0-12 % Eosinophils (%) (Auto) 9 0-10 % Basophils (%) (Auto) 1 0-10 % Neutrophils # (Auto) 2.0 1.8-7.8 10^3/uL Lymphocytes # (Auto) 2.5 1.0-4.0 10^3/uL Monocytes # (Auto) 0.5 0.0-1.0 10^3/uL Eosinophils # (Auto) 0.5 H 0.0-0.3 10^3/uL Basophils # (Auto) 0.1 0.0-0.1 10^3/uL Immature Granulocyte # (Auto) 0.0 0.0-0.1 10^3/uL Sodium Level 123 *L 135-145 MMOL/L Potassium Level 5.1 H 3.6-5.0 MMOL/L Chloride Level 94 L 98-107 MMOL/L Carbon Dioxide Level 21 21-32 MMOL/L Anion Gap 8 5-14 MMOL/L Blood Urea Nitrogen 19 H 7-18 MG/DL Creatinine 1.20 0.60-1.30 MG/DL Estimat Glomerular Filtration Rate 59 BUN/Creatinine Ratio 16 Glucose Level 85 70-105 MG/DL Calcium Level 8.4 L 8.5-10.1 MG/DL Corrected Calcium 8.3 L 8.5-10.1 MG/DL Magnesium Level 2.0 1.6-2.4 MG/DL Total Bilirubin 1.0 0.1-1.0 MG/DL Aspartate Amino Transf (AST/SGOT) 35 H 5-34 U/L Alanine Aminotransferase (ALT/SGPT) 16 0-55 U/L Alkaline Phosphatase 51 40-136 U/L Total Protein 6.4 6.4-8.2 GM/DL Albumin 4.1 3.2-4.5 GM/DL Lipase 8 8-78 U/L Serum Alcohol < 10 <10 MG/DL My Orders Orders - CHAPO BRITT Ua Culture If Indicated (05/27/20 03:43) Cbc With Automated Diff (05/27/20 03:43) Comprehensive Metabolic Panel (05/27/20 03:43) Lipase (05/27/20 03:43) Magnesium (05/27/20 03:54) Alcohol (05/27/20 03:54) Ondansetron Injection (Zofran Injectio (05/27/20 04:00) Pantoprazole Injection (Protonix Injecti (05/27/20 04:00) Lidocaine 2% Viscous 15 Ml (Xylocaine Vi (05/27/20 04:00) Antacid Suspension (Mylanta Suspension (05/27/20 04:00) Ct Abdomen/Pelvis W (05/27/20 04:01) Ed Iv/Invasive Line Start (05/27/20 04:01) Lactated Ringers (Lr 1000 Ml Iv Solution (05/27/20 04:01) Iohexol Injection (Omnipaque 350 Mg/Ml 1 (05/27/20 04:30) Received Contrast (Hold Metformin- Contr (05/27/20 04:30) Ns (Ivpb) (Sodium Chloride 0.9% Ivpb Bag (05/27/20 04:30) Medications Given in ED Current Medications Medications Dose Ordered Sig/Kamille Route Start Time Stop Time Status Last Admin Dose Admin Al Hydrox/Mg Hydrox/Simethicone 30 ml ONCE ONCE PO 05/27/20 04:00 05/27/20 04:01 DC 05/27/20 04:01 30 ML Iohexol 100 ml ONCE ONCE IV 05/27/20 04:30 05/27/20 04:31 DC 05/27/20 04:54 100 ML Lactated Ringer's 1,000 ml @ 0 mls/hr Q0M ONCE IV 05/27/20 04:01 05/27/20 04:02 DC 05/27/20 04:05 999 MLS/HR Lidocaine HCl 15 ml ONCE ONCE PO 05/27/20 04:00 05/27/20 04:01 DC 05/27/20 04:01 15 ML Ondansetron HCl 8 mg ONCE ONCE IVP 05/27/20 04:00 05/27/20 04:01 DC 05/27/20 04:00 8 MG Pantoprazole 40 mg ONCE ONCE IV 05/27/20 04:00 05/27/20 04:01 DC 05/27/20 04:00 40 MG Sodium Chloride 80 ml ONCE ONCE IV 05/27/20 04:30 05/27/20 04:31 DC 05/27/20 04:54 80 ML Vital Signs/I&O 05/27/20 03:45 Temp 35.6 Pulse 70 Resp 16 B/P (MAP) 133/88 (103) O2 Delivery Room Air Progress Progress Note #1: Time: 03:59 Progress Note Unclear if the patient is describing GERD, nausea or combination. Plan to give him some ondansetron. He is on aspirin and meloxicam. We'll give him a GI cocktail for potential gastritis/PUD etc. With his diarrhea this could be related to GERD, gallbladder, infectious colitis, pancreatitis. Plan to get a CT of his abdomen and pelvis with IV contrast if possible. He has had 2 sets of plain films of his abdomen in the past 2 weeks. He will likely need endoscopy if we do not find a source of his pathophysiology on CT or labs. We'll obtain urine lipase and other appropriate laboratory examination. Progress Note #2: Time: 05:46 Progress Note The patient's nausea is better and he is not having any significant pain still. He says the pain comes and goes. He has gallstones that may explain his symptoms as well as he has significant hyponatremia. Plan to place him in patient with consultations to general surgery. Diagnostic Imaging Diagonstic Imaging: CT Plain Films/CT/US/NM/MRI: abdomen, pelvis Comments Cirrhotic liver. Small volume ascites. Small right and trace left pleural effusions. Cardiomegaly. Cholelithiasis without evidence of acute cholecystitis. Reviewed: Reviewed [place] Study, Reviewed by Me Departure Communication (Admissions) Time/Spoke to Admitting Phy: 05:15 Discussed the case with Dr. Domingo and she agrees to admit the patient on normal saline at 60 mL an hour for his hyponatremia. She would like to consult Dr. Moyer for the gallstones and would like to consult with Dr. Back for his heart failure. Time/Spoke to Consulting Phy: 05:18 Discussed the case with Dr. Moyer and he would like an ultrasound of the gallbladder this morning. Dr. Back says he agrees to consult on the case. Impression Primary Impression: Biliary colic Additional Impressions: Multiple gallstones Hyponatremia Disposition: ADMITTED INPATIENT Condition: Stable Admissions Decision to Admit Reason: Admit from ER (General) Decision to Admit/Date: May 27, 2020 Time/Decision to Admit Time: 05:00 Departure-Patient Inst. Referrals: NOHEMY HARRY APRN (PCP/Family) Primary Care Physician CHAPO BRITT May 27, 2020 04:00
[2020-05-27 04:13] LABS: BASOPHILS # (AUTO) 0.1 10^3/uL (0.0-0.1); BASOPHILS % (AUTO) 1 % (0-10); EOSINOPHILS # (AUTO) 0.5 10^3/uL (0.0-0.3); EOSINOPHILS % (AUTO) 9 % (0-10); HEMATOCRIT 32 % (40-54); HEMOGLOBIN 11.2 g/dL (13.3-17.7); LYMPHOCYTES # (AUTO) 2.5 10^3/uL (1.0-4.0); LYMPHOCYTES % (AUTO) 45 % (12-44); MEAN CORPUSCULAR HEMOGLOBIN 32 pg (25-34); MEAN CORPUSCULAR HGB CONC 35 g/dL (32-36); MEAN CORPUSCULAR VOLUME 93 fL (80-99); MEAN PLATELET VOLUME 10.5 fL (9.0-12.2); MONOCYTES # (AUTO) 0.5 10^3/uL (0.0-1.0); MONOCYTES % (AUTO) 9 % (0-12); NEUTROPHILS % (AUTO) 37 % (42-75); PLATELET COUNT 270 10^3/uL (130-400); WHITE BLOOD COUNT 5.5 10^3/uL (4.3-11.0)
[2020-05-27 04:20] LABS: ALBUMIN 4.1 GM/DL (3.2-4.5)
[2020-05-27 04:21] LABS: CHLORIDE 94 MMOL/L (98-107); POTASSIUM 5.1 MMOL/L (3.6-5.0)
[2020-05-27 04:22] LABS: CALCIUM 8.4 MG/DL (8.5-10.1)
[2020-05-27 04:23] LABS: GLUCOSE 85 MG/DL (70-105); SODIUM 123 MMOL/L (135-145); TOTAL PROTEIN 6.4 GM/DL (6.4-8.2)
[2020-05-27 04:24] LABS: CARBON DIOXIDE 21 MMOL/L (21-32)
[2020-05-27 04:26] LABS: ALKALINE PHOSPHATASE 51 U/L (40-136)
[2020-05-27 04:27] LABS: GFR ESTIMATED 59
[2020-05-27 04:28] LABS: BUN/CREATININE RATIO 16
[2020-05-27 04:30] LABS: ALANINE AMINOTRANSFERASE 16 U/L (0-55)
[2020-05-27] MEDS ORDERED: IOHEXOL 350 MG/ML 100 ML (OMNIPAQUE 350) VIAL IV ONE (04:30)
[2020-05-27] MEDS ORDERED: HOLD METFORMIN - RECEIVED CONTRAST 20 ML VIAL IV SCH (04:30)
[2020-05-27] MEDS ORDERED: NS 100 ML (IVPB) BAG IV ONE (04:30)
[2020-05-27 04:31] LABS: LIPASE 8 U/L (8-78)
--- NOTE | 2020-05-27 06:05 | NUR ---
CLARY VELEZ admitted to room 410-1, with an admitting diagnosis of HYPONATREMIA, BILIARY COLIC, on 05/27/20 from ED via WHEELCHAIR, accompanied by STAFF.CLARY VELEZ introduced to surroundings, call light, bed controls, phone, TV, temperature control, lights, meal times, smoking policy, visitor policy, side rail policy, bathrooms and showers. Patient Rights given to patient in the handbook. CLARY VELEZ verbalizes understanding that [facility] is not responsible for the loss or damage to any personal effects or valuables that are kept in the patients posession during their hospitalization. CLARY VELEZ verbalizes understanding of Interdisciplinary Patient Education. Patient and/or family were informed about the Rapid Response Team and its purpose.
[2020-05-27] MEDS ORDERED: NS IV 1000 ML 1,000 ML ONE (06:07)
[2020-05-27 06:10] VITALS: BP 127/75
[2020-05-27] MEDS ORDERED: fentaNYL INJECTION 100 MCG/2 ML AMP IV PRN ×2 (07:30)
[2020-05-27] MEDS: NS IV 1000 ML 1,000 ML IV SCH (07:30)
[2020-05-27] MEDS ORDERED: ONDANSETRON 4 MG/2 ML (SDV) Z0FRAN IV PRN (07:30)
--- NOTE | 2020-05-27 07:41 | Diagnostic Imaging Report ---
EXAMINATION: CT Abdomen and Pelvis with intravenous contrast. TECHNIQUE: Multiple contiguous axial images were obtained through the abdomen and pelvis after the uneventful administration of intravenous contrast. All CT scans use one or more of the following dose optimizing techniques: automated exposure control, MA and/or KvP adjustment based on a patient size and exam type, or iterative reconstruction. HISTORY: Abdominal pain COMPARISON: None available. FINDINGS: Limited views of the lower thorax show small bilateral pleural effusions. Liver is cirrhotic. No focal liver lesions are seen. There is reflux of contrast into the inferior vena cava. There is no biliary ductal dilation. Gallstones present in the gallbladder. No evidence of cholecystitis. Pancreas is normal. Spleen is normal. Adrenal glands are normal. The kidneys are normal. There is no hydronephrosis. Urinary bladder is normal. Visualized bowel is normal in caliber without obstruction or inflammation. There is small volume ascites. No free air is seen. No abdominal or pelvic lymphadenopathy. Aorta is normal in caliber without aneurysm. There are no suspicious osseus lesions. IMPRESSION: 1. Cirrhotic liver with small volume ascites and small bilateral pleural effusions, right greater than left. 2. Cholelithiasis without cholecystitis. There is no significant disagreement with the preliminary report. Dictated by: Dictated on workstation # [id number]
[2020-05-27 08:08] VITALS: BP 139/82
--- NOTE | 2020-05-27 09:13 | Consultation - Surgery ---
SILVERIO SMITH MED STUDENT 05/27/20 0912: History of Present Illness History of Present Illness Patient Consulted On(viridiana/time) 05/27/20 09:05 Date Seen by Provider: May 27, 2020 Time Seen by Provider: 07:15 History of Present Illness Will Ragsdale is a 74 YO male with history of HTN, HI, and CAD who came to the ER early this morning for sharp epigastric abdominal pain and diarrhea for the past 2-[address] abdomen/pelvis showed gallstones, cirrhotic liver, ascites, cardiomegaly, and bilateral pleural effusions. Surgery consulted for gallstones and possible EGD. On exam, pt states his pain has resolved after being given medication in the hospital. No hx of EGD/colonoscopy. Denies any surgical hx. Admits that he drank EtOH in the past, but denies smoking or drug use. On Plavix and daily ASA. Allergies and Home Medications Allergies Coded Allergies: Penicillins (Unverified Allergy, Unknown, 05/20/19) Home Medications Aspirin 81 Mg Tablet.dr, 81 MG PO DAILY, (Reported) Carvedilol 6.25 Mg Tablet, 6.25 MG PO DAILY, (Reported) Cetirizine HCl 10 Mg Tablet, 10 MG PO DAILY, (Reported) Furosemide 20 Mg Tablet, 20 MG PO DAILY, (Reported) Latanoprost 2.5 Ml Drops, 1 DROP OU HS, (Reported) Lisinopril 10 Mg Tablet, 10 MG PO BID PRN for BLOOD PRESSURE, (Reported) ONLY TAKES A DOSE WHEN BLOOD PRESSURE IS RAISED Magnesium Oxide 400 Mg Tablet, 400 MG PO DAILY, (Reported) Meloxicam 15 Mg Tablet, 15 MG PO DAILY, (Reported) [place] 3 Polyunsat Fatty Acids 1,000 Mg Cap, 2,000 MG PO DAILY, (Reported) Potassium Citrate 10 Meq Tablet.er, 10 MEQ PO DAILY, (Reported) Simvastatin 20 Mg Tablet, 20 MG PO DAILY, (Reported) Sodium Chloride 1 Gm Tab, 1 GM PO BID, (Reported) Past Yqnweyt-Wjsmns-Gwgrnc Hx Patient Social History Alcohol Use: Denies Use Recreational Drug Use: No Smoking Status: Never a Smoker 2nd Hand Smoke Exposure: No Recent Foreign Travel: No Contact w/Someone Who Travel: No Recent Infectious Disease Expo: No Recent Hopitalizations: Yes Immunizations Up To Date Date of Pneumonia Vaccine: May 08, 2019 Seasonal Allergies Seasonal Allergies: Yes Surgeries History of Surgeries: Yes Surgeries: CABG Respiratory History of Respiratory Disorde: No Cardiovascular History of Cardiac Disorders: Yes Cardiac Disorders: Heart Attack, High Cholesterol, Hypertension Neurological History of Neurological Disord: No Genitourinary History of Genitourinary Disor: No Gastrointestinal History of Gastrointestinal Di: No Musculoskeletal History of Musculoskeletal Dis: No Endocrine History of Endocrine Disorders: Yes (Hx Pituitary tumor along with hyponat remia) Endocrine Disorders: Pituitary Disease HEENT History of HEENT Disorders: No Cancer History of Cancer: No Psychosocial History of Psychiatric Problem: No Integumentary History of Skin or Integumenta: No Blood Transfusions History of Blood Disorders: No Family Medical History Significant Family History: Hypertension Family Medial History: Hypertension 19 FATHER Review of Systems-General Constitutional: No chills, No fever EENTM: No blurred vision, No double vision Respiratory: No cough, No short of breath Cardiovascular: No chest pain, No palpitations Gastrointestinal: diarrhea; No vomiting Genitourinary: No frequency, No hematuria Musculoskeletal: No back pain, No joint pain Skin: No change in color, No change in hair/nails Psychiatric/Neurological: Denies Headache, Denies Numbness All Other Systems Reviewed Negative Unless Noted: Yes Physical Exam-General Problems Physical Exam Vital Signs Vital Signs - First Documented 05/27/20 05/27/20 03:45 05:51 Temp 35.6 Pulse 70 Resp 16 B/P (MAP) 133/88 (103) Pulse Ox 100 O2 Delivery Room Air Capillary Refill : Less Than 3 Seconds General Appearance: WD/WN, no apparent distress, other (somnolent but answers questions) Eyes: Bilateral Eye Normal Inspection, Bilateral Eye EOMI HEENT: PERRL/EOMI, normal ENT inspection Neck: supple, normal inspection Respiratory: chest non-tender, no respiratory distress, no accessory muscle use Cardiovascular: regular rate, rhythm, no edema Gastrointestinal: non tender, soft; No guarding, No rebound Rectal: deferred Extremities: normal inspection, no pedal edema, no calf tenderness Neurologic/Psychiatric: no motor/sensory deficits, alert, normal mood/affect, oriented x 3 Skin: normal color, warm/dry Lymphatic: no adenopathy Data Review Labs Laboratory Tests 05/27/20 04:00: White Blood Count 5.5, Red Blood Count 3.47L, Hemoglobin 11.2L, Hematocrit 32L, Mean Corpuscular Volume 93, Mean Corpuscular Hemoglobin 32, Mean Corpuscular Hemoglobin Concent 35, Red Cell Distribution Width 13.9, Platelet Count 270, Mean Platelet Volume 10.5, Immature Granulocyte % (Auto) 0, Neutrophils (%) (Auto) 37L, Lymphocytes (%) (Auto) 45H, Monocytes (%) (Auto) 9, Eosinophils (%) (Auto) 9, Basophils (%) (Auto) 1, Neutrophils # (Auto) 2.0, Lymphocytes # (Auto) 2.5, Monocytes # (Auto) 0.5, Eosinophils # (Auto) 0.5H, Basophils # (Auto) 0.1, Immature Granulocyte # (Auto) 0.0, Sodium Level 123*L, Potassium Level 5.1H, Chloride Level 94L, Carbon Dioxide Level 21, Anion Gap 8, Blood Urea Nitrogen 19H, Creatinine 1.20, Estimat Glomerular Filtration Rate 59, BUN/Creatinine Ratio 16, Glucose Level 85, Calcium Level 8.4L, Corrected Calcium 8.3L, Magnesium Level 2.0, Total Bilirubin 1.0, Aspartate Amino Transf (AST/SGOT) 35H, Alanine Aminotransferase (ALT/SGPT) 16, Alkaline Phosphatase 51, Total Protein 6.4, Albumin 4.1, Lipase 8, Serum Alcohol < 10 Assessment/Plan Assessment/Plan Assessment/Plan epigastric abdominal pain-improved nausea ascites cholelithiasis without cholecystitis hyponatremia hx EtOH use pain control medical management gallbladder US today Clinical Quality Measures DVT/VTE Risk/Contraindication: Risk Factor Score Per Nursin RFS Level Per Nursing on Admit: 4+=Very High ROSALEE PRABHAKAR DO 05/27/201922: History of Present Illness History of Present Illness History of Present Illness Consult requested for cholelithiasis by Dr. Slater Patient is a 74-year-old male who was having epigastric abdominal pain for approximately 2 or 3 days. He also has associated diarrhea. Patient states that the abdominal pain would just come on he cannot think of anything that made it worse. He states the pain was moderate. No radiation of pain. He states that he was given GI cocktail in the emergency department which relieved his symptoms of pain. Patient had a CT scan which did demonstrate gallstones but no evidence of acute cholecystitis, cirrhosis of the liver, right pleural effusion and slight ascites. Patient states nothing really seems to help his diarrhea as well. Having multiple stools per day. Feeling slightly dehydrated. Currently denies any nausea vomiting fever sweats chills shortness of breath or chest pain. Patient stating he does not want any surgery now. He has never had EGD colonoscopy. Allergies and Home Medications Allergies Coded Allergies: Penicillins (Unverified Allergy, Unknown, 05/20/19) Home Medications Aspirin 81 Mg Tablet.dr, 81 MG PO DAILY, (Reported) Carvedilol 6.25 Mg Tablet, 6.25 MG PO DAILY, (Reported) Cetirizine HCl 10 Mg Tablet, 10 MG PO DAILY, (Reported) Furosemide 20 Mg Tablet, 20 MG PO DAILY, (Reported) Latanoprost 2.5 Ml Drops, 1 DROP OU HS, (Reported) Lisinopril 10 Mg Tablet, 10 MG PO BID PRN for BLOOD PRESSURE, (Reported) ONLY TAKES A DOSE WHEN BLOOD PRESSURE IS RAISED Magnesium Oxide 400 Mg Tablet, 400 MG PO DAILY, (Reported) Meloxicam 15 Mg Tablet, 15 MG PO DAILY, (Reported) [place] 3 Polyunsat Fatty Acids 1,000 Mg Cap, 2,000 MG PO DAILY, (Reported) Potassium Citrate 10 Meq Tablet.er, 10 MEQ PO DAILY, (Reported) Simvastatin 20 Mg Tablet, 20 MG PO DAILY, (Reported) Sodium Chloride 1 Gm Tab, 1 GM PO BID, (Reported) Patient Home Medication List Home Medication List Reviewed: Yes Past Qdwzczk-Fvwpvx-Tqeiiv Hx Reviewed Nursing Assessment Reviewed/Agree w Nursing PMH: Yes Family Medical History Significant Family History: No Pertinent Family Hx Family Medial History: Hypertension 19 FATHER Review of Systems-General Constitutional: No chills, No fever EENTM: No blurred vision, No double vision Respiratory: No cough, No short of breath Cardiovascular: No chest pain, No palpitations Gastrointestinal: abdominal pain, diarrhea; No vomiting Genitourinary: No frequency, No hematuria Musculoskeletal: No back pain, No joint pain Skin: No change in color Psychiatric/Neurological: Denies Headache, Denies Numbness All Other Systems Reviewed Negative Unless Noted: Yes (Negative excepted noted.) Physical Exam-General Problems Physical Exam General Appearance: WD/WN, no apparent distress HEENT: PERRL/EOMI, normal ENT inspection Neck: non-tender, supple, normal inspection Respiratory: chest non-tender, no respiratory distress, no accessory muscle use Cardiovascular: regular rate, rhythm, no edema Gastrointestinal: non tender, soft; No guarding, No rebound Rectal: deferred Back: no CVA tenderness, no vertebral tenderness Extremities: normal range of motion, no pedal edema, no calf tenderness Neurologic/Psychiatric: supply officer II-XII nml as tested, no motor/sensory deficits, alert, normal mood/affect, oriented x 3 Skin: normal color, warm/dry Lymphatic: no adenopathy Assessment/Plan Assessment/Plan Assessment/Plan epigastric abdominal pain-improved nausea ascites cholelithiasis without cholecystitis hyponatremia hx EtOH use fluid resuscitation pain control medical management gallbladder US today Symptoms have resolved in terms of his epigastric abdominal pain. I do not feel that his gallbladder is causing his problem likely has gastritis since symptoms relieved with GI cocktail would continue on PPI. Patient has never had EGD colonoscopy will consider EGD colonoscopy as outpatient. Supervisory-Addendum Brief Verification & Attestation Participated in pt care: history, MDM, physical Personally performed: exam, history, MDM, supervision of care Care discussed with: Medical Student Procedures: n/a Results interpretation: Verified all documentation Verification and Attestation of Medical Student E/M Service A medical student performed and documented this service in my presence. I reviewed and verified all information documented by the medical student and made modifications to such information, when appropriate. I personally performed the physical exam and medical decision making. Rosalee Prabhakar, May 27, 2020,19:23 SILVERIO SMITH MED STUDENT May 27, 2020 09:12 ROSALEE PRABHAKAR DO May 27, 2020 19:23
--- NOTE | 2020-05-27 09:16 | Diagnostic Imaging Report ---
INDICATION: Right upper quadrant pain. Gallbladder sonography performed in the routine fashion. FINDINGS: The liver shows normal echogenicity with no focal lesions. Portal vein is patent with hepatopetal flow. Common duct measured 4 mm. Gallbladder shows multiple small stones layering posteriorly. Gallbladder wall is not appreciably thickened. Pancreas is not well seen due to overlying gas. Visualized portions of the aorta and IVC are normal. The right kidney was unremarkable measuring 9.6 cm in length. There is a small amount of ascites as well as a small right pleural effusion. IMPRESSION: Multiple small gallstones are seen layering posteriorly gallbladder without gallbladder wall thickening or biliary dilatation. There is no focal liver lesion seen. There is a small amount of ascites as well as a small right pleural effusion. Dictated by: Dictated on workstation # [id number]
[2020-05-27] MEDS: ASPIRIN 81 MG CHEW (CHILDREN'S ASA) PO SCH ×2 (10:36→11:56)
[2020-05-27] MEDS ORDERED: PANTOPRAZOLE 40 MG (PROTONIX) TAB PO ONE (11:45)
[2020-05-27 12:27] VITALS: BP 136/87
--- NOTE | 2020-05-27 12:42 | History & Physical-Hospitalist ---
JEAN CARLOS LANDEROS MED STUDENT 05/27/20 1242: History of Present Illness HPI/Chief Complaint CC: epigastric pain, reflux, nausea, diarrhea HPI: Patient is a 74 yo male with a history of a pituitary adenoma s/p transphenoidal resection 05/2019, HTN, CAD, CABG, dilated cardiomyopathy, and panhypopituitarism, who was admitted to [facility] from the ED this morning for epigastric discomfort, reflux in back of the throat, nausea and diarrhea. Pain was not worsened or relieved by diet or BM. He was seen for similar symptoms two weeks prior at [place]. He has a history of alcohol abuse, but has not had any recently. CT Abdomen/pelvis showed cirrhotic liver, small ascites and small bilateral pleural effusion, right worse than left along with cholelithiasis w ithout cholycystitis. And ECHO from April of this year showed a EF 25-30%, grade 2 diastolic dysfunction, ablc-im-obaxchcs mitral regurgitation, and japdabjy-mn-yvpfnd tricuspid regurgitation. Labs revealed a low sodium at 123 and he was admitted for further workup and stabilization of his sodium with possible biliary colic. Bedside Abdominal US from this morning showed multiple gallstones without gallbladder wall thickening and small ascites. He denies any current pain, stating the IV fluids and medications have resolved his discomfort. Source: patient, RN notes reviewed, old records Exam Limitations: no limitations Date Seen 05/27/20 Time Seen by a Provider: 08:15 Attending Physician Brisa Domingo Amanda S Aprn Referring Physician Date of Admission May 27, 2020 at 05:30 Home Medications & Allergies Home Medications Reviewed patient Home Medication Reconciliation performed by pharmacy medication reconciliations field support technician and/or nursing. Patients Allergies have been reviewed. Allergies Allergies Coded Allergies Penicillins (Unverified Allergy, Unknown, 05/20/19) Past Atrhaxj-Rbnklk-Wachyt Hx Patient Social History Alcohol Use: Denies Use Recreational Drug Use: No Smoking Status: Never a Smoker 2nd Hand Smoke Exposure: No Recent Foreign Travel: No Contact w/other who traveled: No Recent Hopitalizations: Yes Recent Infectious Disease Expo: No Immunizations Up To Date Date of Pneumonia Vaccine: May 08, 2019 Seasonal Allergies Seasonal Allergies: Yes Past Medical History Surgeries: CABG transphenoidal resection of pituitary adenoma 05/2019 Cardiac: Heart Attack, High Cholesterol, Hypertension Endocrine: Pituitary Disease History of Blood Disorders: No Family History Hypertension 19 FATHER Hypertension Review of Systems Constitutional: see HPI EENTM: see HPI, throat pain (burning sensation) Respiratory: no symptoms reported; No short of breath Cardiovascular: no symptoms reported; No chest pain Gastrointestinal: see HPI, abdominal pain (epigastric), diarrhea, nausea Genitourinary: no symptoms reported Musculoskeletal: no symptoms reported All Other Systems Reviewed Negative Unless Noted: Yes Physical Exam Physical Exam Vital Signs Vital Signs - First Documented 05/27/20 05/27/20 03:45 05:51 Temp 35.6 Pulse 70 Resp 16 B/P (MAP) 133/88 (103) Pulse Ox 100 O2 Delivery Room Air Capillary Refill : Less Than 3 Seconds Height, Weight, BMI Height: 5'8.00" Weight: 196lbs. 0oz. 88.600401mh; 30.41 BMI Method:Stated General Appearance: No Apparent Distress, WD/WN, Obese Eyes: Bilateral Eye Normal Inspection HEENT: Normal ENT Inspection Neck: Non Tender, Supple Respiratory: Chest Non Tender, Lungs Clear, Normal Breath Sounds, No Accessory Muscle Use, No Respiratory Distress Cardiovascular: Regular Rate, Rhythm, No Murmur, Normal Peripheral Pulses Gastrointestinal: Normal Bowel Sounds, No Organomegaly, No Pulsatile Mass, Non Tender, Soft; No Guarding; Other (tympanic to percussion x4) Extremity: Normal Inspection, Non Tender, No Pedal Edema Neurologic/Psychiatric: Alert, Oriented x3, Normal Mood/Affect Skin: Normal Color, Warm/Dry Lymphatic: No Adenopathy Results Results/Procedures Labs Laboratory Tests 05/27/20 04:00 Patient resulted labs reviewed. Imaging: Reviewed Imaging Report Assessment/Plan Admission Diagnosis hyponatremia, biliary colic Admission Status: Inpatient Order (span 2 midnights) Reason for Inpatient Admission: Work up for biliary colic, stablization of sodium levels Assessment and Plan Hyponatremia biliary colic History of pituitary ademona s/p transhenoidal resection 05/2019 panhypopitutiarism CAD, hx of CABG dilated cardiomyopathy, EF 25-30% HTN Plan: IV normal saline started at 60 ml Monitor sodium levels PPI for epigastric discomfort and reflux Clear liquid diet Consult surgery for biliary colic Consult cardiology for cardiac history Clinical Quality Measures DVT/VTE Risk/Contraindication: Risk Factor Score Per Nursin RFS Level Per Nursing on Admit: 4+=Very High DOMINGO,BRISA DO 05/28/20 0602: History of Present Illness HPI/Chief Complaint CC: Hyponatremia with nausea and vomiting HPI: This is a 74yoWM known to me from a few weeks ago when he was admitted for hyponatremia with sodium level of 112 that required hypertonic saline. Sodium level was 123 when he came in with nausea and vomiting and weakness. He was discharged home on home care but apparently he will need some sort of nursing facility at [place]. He remained NPO until Dr. Moyer evaluated the gallbladder with no evidence of any type of cholecystitis so he was given a clear liquid diet, cardiology consulted for CHF, normal saline at 60cc an hours will be maintained along with fluid restriction. Past Iyisvtt-Mjfbbq-Tcelvj Hx Past Med/Social Hx: Reviewed Nursing Past Med/Soc Hx, Reviewed and Corrections made Patient Social History Marrital Status: single Employed/Student: retired Alcohol Use: Denies Use Smoking Status: Former Smoker Past Medical History Cardiac: Chronic Edema/Swelling, Coronary Artery Disease, Hypertension Family History Hypertension 19 FATHER Review of Systems Constitutional: see HPI Physical Exam Physical Exam General Appearance: No Apparent Distress, Chronically ill Respiratory: Lungs Clear Cardiovascular: Regular Rate, Rhythm Neurologic/Psychiatric: Alert, Oriented x3, No Motor/Sensory Deficits, Normal M ood/Affect Assessment/Plan Admission Diagnosis Fluid restriction PT OT Cardiology Surgery Admission Status: Inpatient Order (span 2 midnights) Reason for Inpatient Admission: hyponatremia and diarrhea Supervisory-Addendum Brief Verification & Attestation Participated in pt care: history, MDM, physical Personally performed: exam, history, MDM, supervision of care Care discussed with: Medical Student Procedures: n/a Results interpretation: Verified all documentation Verification and Attestation of Medical Student E/M Service A medical student performed and documented this service in my presence. I reviewed and verified all information documented by the medical student and made modifications to such information, when appropriate. I personally performed the physical exam and medical decision making. Brisa Domingo, May 28, 2020,06:02 JEAN CARLOS LANDEROS MED STUDENT May 27, 2020 12:42 BRISA DOMINGO DO May 28, 2020 06:02
[2020-05-27] MEDS ORDERED: LATA2.5D5 OU (13:57)
[2020-05-27] MEDS ORDERED: NF-NACL1GT PO (13:57)
--- NOTE | 2020-05-27 13:58 | NUR ---
SPOKE WITH THE PT AND WENT THRU THE EXT MED HISTORY TO COMPLETE THE MED REC WHEN SPEAKING WITH THE PT HE WAS ABLE TO GIVE THE DIRECTIONS ON HOW HE TAKES MOST OF HIS MEDICATIONS.FUROSEMIDE 20MG HAS DIRECTIONS OF 1 TAB BID HOWEVER PT SAYS HE JUST TAKES 1 TAB DAILY OTC MEDS: FISH OIL ASPIRIN 81MG
--- NOTE | 2020-05-27 14:15 | NUR ---
"RD ASSESSMENT PMHx: hypercholesterolemia; HTN; pituitary disease; PT INTERACTION: Pt was awake and pleasant during nutrition assessment. Note pt is a poor historian, per chart review. Pt states current appetite is poor, and had been this way prior to admit. Note PO intake 50% x1meal, per chart review. Pt states following a regular diet at home, and has some issues with swallowing food. Pt would not elaborate on swallowing issues when redirected. Pt states unsure of recent issues with nausea and vomiting. Note pt reported episodes of nausea and vomiting x3d, per H&P. Pt states some recent issues with diarrhea, and that his last BM was 05/27. Note pt not currently on bowel regimen per chart review. Pt states recent 10# wt loss, but was unsure of timeframe. Note recent 3# wt loss x5mon, per chart review. ABNORMAL NUTRITION-RELATED LAB VALUES LOW: Na 123; Cl 94; Ca 8.4; HIGH: K 5.1; BUN 19; AST 35 Est. kcal needs: 4630-5532 kcal | 15-20 kcal/kg Est. Pro needs: 70-88 g Pro | 0.8-1.0 g Pro/kg PES STATEMENT: Inadequate oral intake (NI-2.1) related to loss of appetite, nausea, vomiting, and diarrhea, as evidenced by pt interview, chart review, and PO intake 50% x1meal. INTERVENTION: Continue with current diet order of Clear Liquid diet. Would recommend swallow evaluation, as pt stated some recent issues with swallowing food. Pt may benefit from nutrition supplementation if PO intake declines. Will continue to follow and reassess as pt needs, intake, and status change. Vivi Anthony, MS RD LD"
--- NOTE | 2020-05-27 15:45 | NUR ---
ATTEMPT X 1 TO OBTAIN MIDLINE, UNSUCCESSFUL. PT REFUSED FURTHER ATTEMPTS.
[2020-05-27 16:29] VITALS: BP 135/81
--- NOTE | 2020-05-27 17:17 | Consultation-Cardiology ---
HPI-Cardiology Cardiology Consultation: Date of Consultation 05/27/20 Date of Admission Attending Physician Brisa Domingo DO Admitting Physician Sharyn Benavides Aprn Consulting Physician Bailey BACK MD HPI: Time Seen by a Provider: 12:10 Chief Complaint: Preoperative cardiovascular risk assessment This is a 74-year-old gentleman who has history of CAD, cardiomyopathy. He was admitted with epigastric discomfort. Found to have cholelithiasis without gabby cystitis. Echocardiogram in April shows an EF of 25-30 percent. Hyponatremia. Denies active smoking. No significant cardiac complaints. Denies chest pain or shortness of breath. Review of Systems-Cardiology Review of Systems Constitutional: As described under HPI; No As described under HPI, No no symptoms reported, No chills, No fever, No lightheadedness Eyes: No As described under HPI, No no symptoms reported, No blindness, No blurred vision, No contact lenses, No drainage, No decreased acuity, No foreign body sensation, No pain, No vision change Ears/Nose/Throat: No As described under HPI, No no symptoms reported, No chronic hearing loss, No ear discharge, No ear pain, No nasal drainage, No ulcerations Respiratory: No no symptoms reported; As described under HPI; No As described under HPI, No cough, No orthopnea, No shortness of breath, No SOB with excertion Cardiovascular: No no symptoms reported; As described under HPI; No As described under HPI, No chest pain, No edema, No irregular heart rate, No lightheadedness, No palpitations Gastrointestinal: No no symptoms reported, No As described under HPI, No abdomen distended; abdominal pain; No blood streaked bowels, No constipation, No diarrhea, No nausea, No vomiting, No stool coloration changes Genitourinary: No As described under HPI, No burning, No dysuria, No discharge, No frequency, No flank pain, No hematuria, No urgency Skin: No rash, No skin related problems, No ulcerations Psychiatric/Neurological: No anxiety, No depression, No seizure, No focal weakness, No syncope Hematologic: No bleeding abnormalities All Other Systems Reviewed Negative Unless Noted: Yes VWF-Ccewpx-Dlzjih Hx Patient Social History Alcohol Use: Denies Use Recreational Drug Use: No Smoking Status: Never a Smoker 2nd Hand Smoke Exposure: No Recent Foreign Travel: No Recent Infectious Disease Expo: No Hospitalization with Isolation: Denies Immunizations Up To Date Date of Pneumonia Vaccine: May 08, 2019 Past Medical History PMH As described under Assessment. Family Medical History Family History: Hypertension 19 FATHER Allergies and Home Medications Allergies Coded Allergies: Penicillins (Unverified Allergy, Unknown, 05/20/19) Home Medications Aspirin 81 Mg Tablet.dr, 81 MG PO DAILY, (Reported) Carvedilol 6.25 Mg Tablet, 6.25 MG PO DAILY, (Reported) Cetirizine HCl 10 Mg Tablet, 10 MG PO DAILY, (Reported) Furosemide 20 Mg Tablet, 20 MG PO DAILY, (Reported) Latanoprost 2.5 Ml Drops, 1 DROP OU HS, (Reported) Lisinopril 10 Mg Tablet, 10 MG PO BID PRN for BLOOD PRESSURE, (Reported) ONLY TAKES A DOSE WHEN BLOOD PRESSURE IS RAISED Magnesium Oxide 400 Mg Tablet, 400 MG PO DAILY, (Reported) Meloxicam 15 Mg Tablet, 15 MG PO DAILY, (Reported) [place] 3 Polyunsat Fatty Acids 1,000 Mg Cap, 2,000 MG PO DAILY, (Reported) Pantoprazole Sodium 40 Mg Tablet.dr, 40 MG PO DAILY Prescribed by: BRISA DOMINGO on 05/29/20 1134 Potassium Citrate 10 Meq Tablet.er, 10 MEQ PO DAILY, (Reported) Simvastatin 20 Mg Tablet, 20 MG PO DAILY, (Reported) Sodium Chloride 1 Gm Tab, 1 GM PO BID, (Reported) Patient Home Medication List Home Medication List Reviewed: Yes Physical Exam-Cardiology Physical Exam Vital Signs/I&O Capillary Refill : Less Than 3 Seconds Constitutional: appears stated age, AAO x 3; No apparent distress; well- developed, well-nourished HEENT: PERRL; No discharge; hearing is well preserved, oral hygience is good; No ulceration, No xanthelasmas are seen Neck: No carotid bruit; carotid pulses are 2 + bilaterally Respiratory: chest is bilaterally symmetric, lungs clear to auscultation Cardiovascular: regular rate-rhythm, S1 and S2 Gastrointestinal: soft, audible bowel sounds; No spleenomegaly Rectal: deferred Extremities: normal range of motion, non-tender, normal inspection, pedal edema; No clubbing, No cyanosis, No significant edema Neurologic/Psychiatric: no motor/sensory deficits, alert, normal mood/affect, oriented x 3, power is 5/5 both on sides Skin: normal color; No rash, No ulcerations Lymphatic: no adenopathy Data Review Labs A/P-Cardiology Assessment/Admission Diagnosis Gallstones, CAD, Cardiomyopathy, Hypertension Plan Gallstones, without cholecystitis. Defer to the general surgery team. Coronary artery disease, continue outpatient medical therapy. Cardiomyopathy, likely ischemic. Echocardiogram. Outpatient medical therapy. Hypertension. Continue JUAN inhibitor and beta malathi. Thank you for your consultation. Please call me if you have any questions. Yovana Back MD, FACP, FACC, FSCAI, FHRS, CCDS Interventional Cardiology Cardiac Electrophysiology Vascular Medicine and Endovascular Interventions Clinical Quality Measures DVT/VTE Risk/Contraindication: Risk Factor Score Per Nursin RFS Level Per Nursing on Admit: 4+=Very High Bailey BACK MD May 27, 2020 17:16
[2020-05-27 20:31] VITALS: BP 122/67
[2020-05-27] MEDS: ENOXAPARIN 40 MG/0.4 ML (LOVENOX) SYR SC SCH (21:05)
[2020-05-28 00:10] VITALS: BP 136/79
[2020-05-28 01:45] LABS: BILIRUBIN,URINE NEGATIVE (NEGATIVE); CLARITY,URINE CLEAR; COLOR,URINE YELLOW; GLUCOSE, URINE (UA) NEGATIVE (NEGATIVE); KETONES,URINE NEGATIVE (NEGATIVE); LEUKOCYTE ESTERASE ,URINE NEGATIVE (NEGATIVE); NITRITE,URINE NEGATIVE (NEGATIVE); PROTEIN,URINE NEGATIVE (NEGATIVE)
[2020-05-28 02:07] LABS: AMORPHOUS SEDIMENT,UR FEW AMOR URATES /LPF; BACTERIA,URINE NEGATIVE /HPF; URIC ACID CRYSTALS,URINE MODERATE /LPF
[2020-05-28] MEDS: NS IV 1000 ML 1,000 ML IV SCH ×2 (03:39→17:47)
[2020-05-28 03:55] VITALS: BP 135/82
[2020-05-28 06:01] LABS: BASOPHILS # (AUTO) 0.1 10^3/uL (0.0-0.1); BASOPHILS % (AUTO) 1 % (0-10); EOSINOPHILS # (AUTO) 0.4 10^3/uL (0.0-0.3); EOSINOPHILS % (AUTO) 6 % (0-10); HEMATOCRIT 33 % (40-54); HEMOGLOBIN 11.3 g/dL (13.3-17.7); LYMPHOCYTES # (AUTO) 2.7 10^3/uL (1.0-4.0); LYMPHOCYTES % (AUTO) 44 % (12-44); MEAN CORPUSCULAR HEMOGLOBIN 32 pg (25-34); MEAN CORPUSCULAR HGB CONC 35 g/dL (32-36); MEAN CORPUSCULAR VOLUME 92 fL (80-99); MEAN PLATELET VOLUME 10.5 fL (9.0-12.2); MONOCYTES # (AUTO) 0.7 10^3/uL (0.0-1.0); MONOCYTES % (AUTO) 11 % (0-12); NEUTROPHILS # (AUTO) 2.3 10^3/uL (1.8-7.8); NEUTROPHILS % (AUTO) 37 % (42-75); PLATELET COUNT 267 10^3/uL (130-400); WHITE BLOOD COUNT 6.1 10^3/uL (4.3-11.0)
[2020-05-28 06:29] LABS: ALANINE AMINOTRANSFERASE 17 U/L (0-55); ALBUMIN 3.8 GM/DL (3.2-4.5); ALKALINE PHOSPHATASE 52 U/L (40-136); BILIRUBIN,TOTAL 1.3 MG/DL (0.1-1.0); BUN/CREATININE RATIO 15; CALCIUM 8.3 MG/DL (8.5-10.1); CARBON DIOXIDE 18 MMOL/L (21-32); CHLORIDE 99 MMOL/L (98-107); CREATININE SERUM 0.95 MG/DL (0.60-1.30); GFR ESTIMATED > 60; GLUCOSE 69 MG/DL (70-105); POTASSIUM 4.3 MMOL/L (3.6-5.0); SODIUM 126 MMOL/L (135-145); TOTAL PROTEIN 5.6 GM/DL (6.4-8.2)
[2020-05-28 08:00] VITALS: BP 138/79
[2020-05-28] MEDS: ASPIRIN 81 MG CHEW (CHILDREN'S ASA) PO SCH (09:45)
[2020-05-28] MEDS: PANTOPRAZOLE 40 MG (PROTONIX) TAB PO SCH (09:45)
--- NOTE | 2020-05-28 09:47 | Physical Therapy Evaluation ---
PT Evaluation-General Medical Diagnosis Admission Date May 27, 2020 at 05:30 Medical Diagnosis: hyponatremia/biliary colic Onset Date: May 27, 2020 Therapy Diagnosis Therapy Diagnosis: debility Height/Weight Height (Feet): 5 Height (Inches): 8.00 Weight (Pounds): 196 Weight (Ounces): 0 Precautions Precautions/Isolations: Fall Prevention, Standard Precautions Referral Physician: Bryon Reason for Referral: Evaluation/Treatment Medical History Pertinent Medical History: CABG, Heart Failure, HTN, DC Current History ER with abdominal pain Reviewed History: Yes Social History Home: Single Level Current Living Status: Alone Prior Prior Level of Function SCALE: Activities may be completed with or without assistive devices. 7-Bkmipydnbf-rngkjzv completes the activity by him/herself with no assistance from a helper. 5-Set-up or Clean-up Assistance-helper sets up or cleans up; patient completes activity. [place] assists only prior to or following the activity. 4-Supervision or Touching Assistance-helper provides verbal cues and/or risa gaby/steadying and/or contact guard assistance as patient completes activity. Assistance may be provided throughout the activity or intermittently. 3-Partial/Moderate Assistance-helper does LESS THAN HALF the effort. [place] lifts, holds or supports trunk or limbs, but provides less than half the effort. 2-Substantial/Maximal Assistance-helper does MORE THAN HALF the effort. [place] lifts or holds trunk or limbs and provides more than half the effort. 2-Jlghcuvwd-fucuvf does ALL the effort. Patient does none of the effort to complete the activity. Or, the assistance of 2 or more helpers is required for the patient to complete the activity. If activity was not attempted, code reason: 7-Patient Refused. 9-Not Applicable-not attempted and the patient did not perform the activity before the current illness, exacerbation or injury. 10-Not Attempted due to Environmental Limitations-(lack of equipment, weather restraints, etc.). 88-Not Attempted due to Medical Conditions or Safety Concerns. Bed Mobility: 6 Transfers (B,C,W/C): 6 Gait: 6 Stairs: 6 Indoor Mobility (Ambulation): Independent Stairs: Independent Prior Devices Use: None PT Evaluation-Current Subjective Patient agrees to PT. He states, "I just want to go home today." Objective Patient Orientation: Normal For Age Attachments: IV ROM/Strength ROM Lower Extremities bilateral LE WFL Strength Lower Extremities 4+/5 grossly bilateral LE all planes Integumentary/Posture Integumentary refer to nursing notes Bowel Incontinence: No Bladder Incontinence: No Posture slightly kyphotic Neuromuscular (Tone, Coordination, Reflexes) grossly intact Sensory Vision: Functional Hearing: Functional Transfers Sit to Lying (QC): 6 Lying to Sitting/Side of Bed(Q: 6 Sit to Stand (QC): 6 Chair/Vqj-ba-Boayx Xfer(QC): 6 Toilet Transfer (QC): 6 Gait Does the Patient Walk?: Yes Mode of Locomotion: Walk Anticipated Mode of Locomotion: Walk Walk 10 feet (QC): 6 Walk 50 ft with 2 Turns(QC): 6 Walk 150 ft (QC): 6 Gait Assistive Device: FWW Comments/Gait Description safe and functional gait sequence with noted increase SOA due to patient reports he does not walk that far at home. Wheelchair Training Does the Pt Use a Wheelchair?: No Balance Sitting Static: Normal Sitting Dynamic: Normal Standing Static: Normal Standing Dynamic: Normal Assessment/Needs 74 y.o male, will be seen 2 sessions by skilled PT to ensure safe return to home at maximum LOF. Patient reports he does not and will not use a FWW at home. Rehab Potential: Fair PT Short Term Goals Short Term Goals Time Frame: May 29, 2020 Roll Left & Right: 6 Sit to lyin Lying to sitting on side of be: 6 Sit to stand: 6 Chair/fvl-pv-eatca transfer: 6 Toilet transfer: 6 Walk 10 feet: 6 Walk 50 feet with two turns: 6 Walk 150 feet: 6 PT Plan Treatment/Plan Treatment Plan: Continue Plan of Care Treatment Plan: Education, Functional Activity Maggy, Functional Strength, Gait, Safety, Therapeutic Exercise, Transfers Treatment Duration: May 29, 2020 Frequency: 2 times per week Estimated Hrs Per Day: .25 hour per day Patient and/or Family Agrees t: Yes Time/GCodes Time In: 832 Time Out: 856 Total Billed Treatment Time: 24 Total Billed Treatment 1 visit EVModC 10 min FA 14 min LEVY SPANGLER PT May 28, 2020 09:47
[2020-05-28 12:00] VITALS: BP 141/80
--- NOTE | 2020-05-28 12:03 | Progress Note - Hospitalist ---
JEAN CARLOS LANDEROS MED STUDENT 05/28/20 1203: Subjective HPI/CC On Admission Date Seen by Provider: May 28, 2020 Time Seen by Provider: 09:10 CC: Hyponatremia with nausea and vomiting HPI: This is a 74yoWM known to me from a few weeks ago when he was admitted for hyponatremia with sodium level of 112 that required hypertonic saline. Sodium level was 123 when he came in with nausea and vomiting and weakness. He was discharged home on home care but apparently he will need some sort of nursing facility at [place]. He remained NPO until Dr. Moyer evaluated the gallbladder with no evidence of any type of cholecystitis so he was given a clear liquid diet, cardiology consulted for CHF, normal saline at 60cc an hours will be maintained along with fluid restriction. Subjective/Events-last exam Patient is awake in recliner comfortably on exam this morning. His sodium improved to 126. He is on 60 cc per hour of NS. UA showed uric acid crystals. He continues to have no pain to report. Getting up to walk around the unit without issue. Had two loose BM last night. Continues clear liquid diet currently. Said cardiology told him he was clear for surgery if he needed to have it, but was unsure if he would want surgery due to age. Objective Exam Vital Signs Vital Signs Date Time Temp Pulse Resp B/P (MAP) Pulse Ox O2 Delivery O2 Flow Rate FiO2 05/28/20 08:00 36.7 81 16 138/79 (98) 98 Room Air Capillary Refill : Less Than 3 Seconds General Appearance: No Apparent Distress, WD/WN, Obese HEENT: Normal ENT Inspection Neck: Non Tender, Supple Respiratory: Chest Non Tender, Lungs Clear, Normal Breath Sounds, No Accessory Muscle Use, No Respiratory Distress Cardiovascular: Regular Rate, Rhythm, No Murmur Gastrointestinal: Normal Bowel Sounds, No Organomegaly, No Pulsatile Mass, Non Tender, Soft Extremity: Normal Capillary Refill, Normal Inspection, No Pedal Edema Neurologic/Psychiatric: Alert, Oriented x3, Normal Mood/Affect Skin: Normal Color, Warm/Dry Results/Procedures Lab Laboratory Tests 05/28/20 05:30 Patient resulted labs reviewed. Imaging: Reviewed Imaging Report Assessment/Plan Assessment and Plan Assess & Plan/Chief Complaint Hyponatremia Diarrhea History of pituitary ademona s/p transhenoidal resection 05/2019 panhypopitutiarism CAD, hx of CABG dilated cardiomyopathy, EF 25-30% HTN Plan: Continue IV fluids at 60 cc Monitor sodium levels Continue clear liquid diet Cardiology following for cardiac history Consider home tomorrow pending morning labs Clinical Quality Measures DVT/VTE Risk/Contraindication: Risk Factor Score Per Nursin RFS Level Per Nursing on Admit: 4+=Very High BRISA DOMINGO DO 05/29/20 0509: Subjective Subjective/Events-last exam Sodium 126 Normal saline at 60cc an hour is tolerated Midline was not successful and he refuses any type of gallbladder surgery Will reach out to social work for placement Review of Systems General: Fatigue Objective Exam General Appearance: No Apparent Distress, WD/WN, Chronically ill Respiratory: Lungs Clear Cardiovascular: Regular Rate, Rhythm Assessment/Plan Assessment and Plan Assess & Plan/Chief Complaint Monitor sodium DIspo? Supervisory-Addendum Brief Verification & Attestation Participated in pt care: history, MDM, physical Personally performed: exam, history, MDM, supervision of care Care discussed with: Medical Student Procedures: n/a Results interpretation: Verified all documentation Verification and Attestation of Medical Student E/M Service A medical student performed and documented this service in my presence. I reviewed and verified all information documented by the medical student and made modifications to such information, when appropriate. I personally performed the physical exam and medical decision making. Brisa Domingo, May 29, 2020,05:09 JEAN CARLOS LANDEROS MED STUDENT May 28, 2020 12:03 BRISA DOMINGO DO May 29, 2020 05:09
[2020-05-28] MEDS ORDERED: ACETAMINOPHEN 325 MG TABLET ONE (12:30)
[2020-05-28] MEDS ORDERED: ACETAMINOPHEN 325 MG TABLET PO PRN (12:30)
--- NOTE | 2020-05-28 12:38 | NUR ---
CM DISCHARGE PLANNING: Anticipate that the patient will likely dismiss to home tomorrow 05/29/20. Visited with the patient and he would like to resume [facility] at discharge. Contacted [facility] and they indicate they will just need "resume [facility]" in the discharge paper work to continue seeing the patient once he is discharged. He indicated that he wants someone to cook meals for him. Explored with him his support systems and other options. He indicates that he usually calls a next door neighbor for help when he needs something but that he doesn't care for her cooking. He indicated that I could call and talk with his daughter Mindy. Mindy suggested setting him up with meals on wheels and to try that. She did not offer herself nor her sister as possible sources to help cook meals. She also indicated that we would need to call his next door neighbor to come and pick him up d/t her working 11a.m.-11p.m.
--- NOTE | 2020-05-28 13:33 | Occupational Therapy Eval ---
OT Evaluation-General/PLF Medical Diagnosis Admission Date May 27, 2020 at 05:30 Medical Diagnosis: hyponatremia/biliary colic Onset Date: May 27, 2020 Therapy Diagnosis Therapy Diagnosis: no deficits noted Height/Weight Height (Feet): 5 Height (Inches): 8.00 Weight (Pounds): 196 Weight (Ounces): 0 Precautions Precautions/Isolations: Fall Prevention, Standard Precautions Referral Physician: Bryon Medical History Pertinent Medical History: CABG, Heart Failure, HTN, [place] Current History Pt to ED due to epigastric discomfort, reflux in back of throat, nausea and diarrhea Reviewed History: Yes Social History Home: Single Level Current Living Status: Alone Entry Into Home: Stairs With Railing Steps Into Home: 5 ADL-Prior Level of Function SCALE: Activities may be completed with or without assistive devices. 4-Hxrphomjob-prsahkv completes the activity by him/herself with no assistance from a helper. 5-Set-up or Clean-up Assistance-helper sets up or cleans up; patient completes activity. [place] assists only prior to or following the activity. 4-Supervision or Touching Assistance-helper provides verbal cues and/or touching/steadying and/or contact guard assistance as patient completes activity. Assistance may be provided throughout the activity or intermittently. 3-Partial/Moderate Assistance-helper does LESS THAN HALF the effort. [place] lifts, holds or supports trunk or limbs, but provides less than half the effort. 2-Substantial/Maximal Assistance-helper does MORE THAN HALF the effort. [place] lifts or holds trunk or limbs and provides more than half the effort. 3-Xcpjeupwt-ehvaas does ALL the effort. Patient does none of the effort to compl ete the activity. Or, the assistance of 2 or more helpers is required for the patient to complete the activity. If activity was not attempted, code reason: 7-Patient Refused. 9-Not Applicable-not attempted and the patient did not perform the activity before the current illness, exacerbation or injury. 10-Not Attempted due to Environmental Limitations-(lack of equipment, weather restraints, etc.). 88-Not Attempted due to Medical Conditions or Safety Concerns. ADL PLOF Comments Pt reports being independent at PLOF with all ADLS and functional mobility without AD/AE Self Care: Independent Functional Cognition: Independent DME/Equipment: Bath Chair, Shower OT Current Status Subjective Pt seated in recliner, agreeable to OT Tx. Pt declines having pain. Mental Status/Objective Patient Orientation: Person, Place, Time, Situation Attachments: IV, Telemetry Current Glasses/Contacts: Yes Hearing Aids: No Dentures/Partials: No Hand Dominance: Right Upper Extremity ROM WFL, BUE shoulder flexion to approx 145 degrees Upper Extremity Coordination WFL Upper Extremity Sensation WFL Upper Extremity Strength WFL ADL-Treatment Eating (QC): 6 (Pt indicates he is independent with eating lunch) On/Off Footwear (QC): 6 (Pt able to don/doff socks/shoes) Toileting Hygiene (QC): 6 (Pt and nursing staff indicate pt is able to complete task independently.) Other Treatments Pt seated in recliner, agreeable to OT evaluation/tx. OT educated pt on purpose and benefit of OT, he verbalized understanding. Pt provides information about PLOF and home set up and participates in UE screen. Pt indicates he is at his PLOF with ADLs/functional mobility, he has been up in his room and able to take himself to the bathroom, nursing staff confirm this. Pt able to independently doff/don shoes, and independent with eating lunch. Based on pt's report of being at PLOF, and being independent with ADLs, no skilled OT services are indicated at this time. Post OT tx, pt seated in recliner, call light in reach and all needs met. Education OT Patient Education: Correct positioning, Modified ADL techniques, Progress toward Goal/Update tx plan, Purpose of tx/functional activities Teaching Recipient: Patient Teaching Methods: Discussion OT Inspection Machine Tender Goals Inspection Machine Tender Goals 1=Demonstrate adherence to instructed precautions during ADL tasks. 2=Patient will verbalize/demonstrate understanding of assistive devices/modifications for ADL. 3=Patient will improve strength/tolerance for activity to enable patient to p erform ADL's. OT Education/Plan Problem List/Assessment Assessment: No Skilled OT Needs ID'd Pt is currently independent with ADLs and at PLOF. No skilled OT services are indicated, d/c from OT. Discharge Recommendations Plan/Recommendations: Discharge/Goals Met Treatment Plan/Plan of Care Patient would benefit from OT for education, treatment and training to promote independence in ADL's, mobility, safety and/or upper extremity function for ADL's. Plan of Care: ADL Retraining Treatment Duration: May 28, 2020 Frequency: 1 time per week (eval only) Rehab Potential: Fair Time/GCodes Start Time: 13:10 Stop Time: 13:19 Total Time Billed (hr/min): 9 Billed Treatment Time 1, ARELI HARMON OT May 28, 2020 13:33
--- NOTE | 2020-05-28 14:40 | NUR ---
DR DINERO HERE. DISCUSSED WITH PATIENT RESULTS OF CARDIAC FINDINGS, EF=15% DR DINERO THOROUGHLY EDUCATED PATIENT AND RECOMMENDED CARDIAC CATHETERIZATION, LIFE VEST. PATIENT ADAMANT HE DID NOT WANT ANY FURTHER INTERVENTION FOR HIS HEART FUNCTION OTHER THAN MEDICATION EVEN THOUGH IT MAY PROLONG HIS LIFE. DR DINERO DISCUSSED IN DEPTH THE RISK OF REFUSAL. PATIENT STATED, 'I GOTTA GO SOMETIME, I'VE LIVED MY LIFE, WE ALL GOTTA FROM SOMETHIN'
[2020-05-28] MEDS ORDERED: lisINopril 10 MG (PRINIVIL) TABLET PO PRN (14:45)
--- NOTE | 2020-05-28 15:01 | Progress Note - Surgery ---
SILVERIO SMITH MED STUDENT 05/28/20 1501: Subjective Date Seen by a Provider: May 28, 2020 Time Seen by a Provider: 07:10 Subjective/Events-last exam Pt denies pain, nausea, or vomitinig today. Says he did have some diarrhea early this morning that was dark green. Gall bladder US yesterday showed small amount of ascites and multiple small gallstones without wall thickening or biliary dilatation. Objective Exam Vital Signs Date Time Temp Pulse Resp B/P (MAP) Pulse Ox O2 Delivery O2 Flow Rate FiO2 05/28/20 13:15 79 05/28/20 12:00 36.4 67 20 141/80 (100) 97 Room Air 05/28/20 08:00 36.7 81 16 138/79 (98) 98 Room Air 05/28/20 07:46 Room Air 05/28/20 07:21 81 05/28/20 03:55 37.2 83 21 135/82 (99) 96 Room Air 05/28/20 01:00 80 05/28/20 00:10 36.8 75 20 136/79 (98) 96 Room Air 05/27/20 20:59 Room Air 05/27/20 20:31 36.3 83 22 122/67 (85) 99 Room Air 05/27/20 19:00 80 05/27/20 16:29 36.1 72 18 135/81 (99) 98 Room Air I & O 05/28/20 07:00 Intake Total 1160 ml Balance 1160 ml Capillary Refill : Less Than 3 Seconds General Appearance: No Apparent Distress, WD/WN, Obese HEENT: PERRL/EOMI, Normal ENT Inspection Neck: Normal Inspection, Supple Respiratory: Chest Non Tender, No Accessory Muscle Use, No Respiratory Distress Cardiovascular: Regular Rate, Rhythm, No Edema Gastrointestinal: non tender, soft; No guarding, No rebound Extremity: Normal Inspection, No Calf Tenderness, No Pedal Edema Neurologic/Psychiatric: Alert, Oriented x3, Normal Mood/Affect Skin: Normal Color, Warm/Dry Lymphatic: No Adenopathy Results Lab Laboratory Tests 05/27/20 20:34: Urine Color YELLOW, Urine Clarity CLEAR, Urine pH 5.0, Urine Specific [place] 1.025H, Urine Protein NEGATIVE, Urine Glucose (UA) NEGATIVE, Urine Ketones NEGATIVE, Urine Nitrite NEGATIVE, Urine Bilirubin NEGATIVE, Urine Urobilinogen 0.2, Urine Leukocyte Esterase NEGATIVE, Urine RBC (Auto) 1+H, Urine RBC 2-5H, Urine WBC NONE, Urine Crystals PRESENTH, Urine Uric Acid Crystals MODERATEH, Urine Amorphous Sediment FEW GEMMA URATESH, Urine Bacteria NEGATIVE, Urine Casts NONE, Urine Mucus NEGATIVE, Urine Culture Indicated NO 05/28/20 05:30: White Blood Count 6.1, Red Blood Count 3.52L, Hemoglobin 11.3L, Hematocrit 33L, Mean Corpuscular Volume 92, Mean Corpuscular Hemoglobin 32, Mean Corpuscular Hemoglobin Concent 35, Red Cell Distribution Width 13.9, Platelet Count 267, Mean Platelet Volume 10.5, Immature Granulocyte % (Auto) 0, Neutrophils (%) (Auto) 37L, Lymphocytes (%) (Auto) 44, Monocytes (%) (Auto) 11, Eosinophils (%) (Auto) 6, Basophils (%) (Auto) 1, Neutrophils # (Auto) 2.3, Lymphocytes # (Auto) 2.7, Monocytes # (Auto) 0.7, Eosinophils # (Auto) 0.4H, Basophils # (Auto) 0.1, Immature Granulocyte # (Auto) 0.0, Sodium Level 126L, Potassium Level 4.3, Chloride Level 99, Carbon Dioxide Level 18L, Anion Gap 9, Blood Urea Nitrogen 14, Creatinine 0.95, Estimat Glomerular Filtration Rate > 60, BUN/Creatinine Rat io 15, Glucose Level 69L, Calcium Level 8.3L, Corrected Calcium 8.5, Total Bilirubin 1.3H, Aspartate Amino Transf (AST/SGOT) 27, Alanine Aminotransferase (ALT/SGPT) 17, Alkaline Phosphatase 52, Total Protein 5.6L, Albumin 3.8 Assessment/Plan Assessment/Plan Assessment/Plan epigastric abdominal pain-improved nausea ascites cholelithiasis without cholecystitis hyponatremia hx EtOH use fluid resuscitation pain control medical management Symptoms have resolved in terms of his epigastric abdominal pain. I do not feel that his gallbladder is causing his problem likely has gastritis since symptoms relieved with GI cocktail would continue on PPI. Patient has never had EGD colonoscopy will consider EGD colonoscopy as outpatient. Will sign off on pt and reconsult if needed. Clinical Quality Measures DVT/VTE Risk/Contraindication: Risk Factor Score Per Nursin RFS Level Per Nursing on Admit: 4+=Very High ROSALEE MOYER DO 05/28/20 5095: Subjective Subjective/Events-last exam Patient states he is doing well. He is not having any abdominal pain. He is not having any nausea or vomiting. Still with slight diarrhea, no blood. Patient had gallbladder ultrasound demonstrating gallstones and surrounding ascites no signs of acute cholecystitis. Patient states that he does not want any type of surgery. Objective Exam General Appearance: No Apparent Distress, WD/WN HEENT: PERRL/EOMI, Normal ENT Inspection Neck: Normal Inspection, Supple Respiratory: Chest Non Tender, No Accessory Muscle Use Cardiovascular: Regular Rate, Rhythm, No Edema Gastrointestinal: non tender, soft; No guarding, No rebound Extremity: Normal Inspection, Non Tender, No Calf Tenderness Neurologic/Psychiatric: Alert, Oriented x3, No Motor/Sensory Deficits, Normal Mood/Affect Skin: Normal Color, Warm/Dry Lymphatic: No Adenopathy Assessment/Plan Assessment/Plan Assessment/Plan epigastric abdominal pain-improved nausea ascites cholelithiasis without cholecystitis hyponatremia hx EtOH use fluid resuscitation pain control medical management Symptoms have resolved in terms of his epigastric abdominal pain. I do not feel that his gallbladder is causing his problem likely has gastritis since symptoms relieved with GI cocktail would continue on PPI. Patient has never had EGD colonoscopy will consider EGD colonoscopy as outpatient. He does not want any surgical intervention. will sign off on pt and please call if needed. Supervisory-Addendum Brief Verification & Attestation Participated in pt care: history, MDM, physical Personally performed: exam, history, MDM, supervision of care Care discussed with: Medical Student Procedures: n/a Results interpretation: Verified all documentation Verification and Attestation of Medical Student E/M Service A medical student performed and documented this service in my presence. I reviewed and verified all information documented by the medical student and made modifications to such information, when appropriate. I personally performed the physical exam and medical decision making. Rosalee Moyer, May 28, 2020,22:15 SILVERIO SMITH MED STUDENT May 28, 2020 15:01 ROSALEE MOYER DO May 28, 2020 22:15
--- NOTE | 2020-05-28 15:40 | NUR ---
Per patient's daughters request I contacted [place] [facility] [employer] [facility] to see if they would be able to deliver meals. MOW report that they will have only frozen meals available until at least after the 10 of July. Patient and daughter both report that he will not eat the frozen meals.
[2020-05-28 16:03] VITALS: BP 142/73
--- NOTE | 2020-05-28 17:25 | Cardiology Progress Note ---
Cardiology SOAP Progress Note Subjective: Denies any complaints. Objective: I&O/Vital Signs 05/28/20 05/28/20 05/28/20 05/28/20 07:21 07:46 08:00 12:00 Temp 36.7 36.4 Pulse 81 81 67 Resp 16 20 B/P (MAP) 138/79 (98) 141/80 (100) Pulse Ox 98 97 O2 Delivery Room Air Room Air Room Air 05/28/20 05/28/20 13:15 16:03 Temp 36.3 Pulse 79 67 Resp 18 B/P (MAP) 142/73 (96) Pulse Ox 98 O2 Delivery Room Air 05/28/20 00:00 Intake Total 960 ml Balance 960 ml Weight (Pounds): 196 Weight (Ounces): 0 Weight (Calculated Kilograms): [id number] Constitutional: AAO x 3 Respiratory: chest is bilaterally symmetric, lungs clear to auscultation Cardiovascular: regular rate-rhythm, S1 and S2 Gastrointestional: soft, audible bowel sounds Extremities: normal range of motion, non-tender, normal inspection Neurologic/Psychiatric: no motor/sensory deficits, alert, normal mood/affect, oriented x 3 Skin: normal color, warm/dry Results/Procedures: Labs Laboratory Tests 05/27/20 20:34: Urine Color YELLOW, Urine Clarity CLEAR, Urine pH 5.0, Urine Specific [place] 1.025H, Urine Protein NEGATIVE, Urine Glucose (UA) NEGATIVE, Urine Ketones NEGATIVE, Urine Nitrite NEGATIVE, Urine Bilirubin NEGATIVE, Urine Urobilinogen 0.2, Urine Leukocyte Esterase NEGATIVE, Urine RBC (Auto) 1+H, Urine RBC 2-5H, Urine WBC NONE, Urine Crystals PRESENTH, Urine Uric Acid Crystals MODERATEH, Urine Amorphous Sediment FEW GEMMA URATESH, Urine Bacteria NEGATIVE, Urine Casts NONE, Urine Mucus NEGATIVE, Urine Culture Indicated NO 05/28/20 05:30: White Blood Count 6.1, Red Blood Count 3.52L, Hemoglobin 11.3L, Hematocrit 33L, Mean Corpuscular Volume 92, Mean Corpuscular Hemoglobin 32, Mean Corpuscular Hemoglobin Concent 35, Red Cell Distribution Width 13.9, Platelet Count 267, Mean Platelet Volume 10.5, Immature Granulocyte % (Auto) 0, Neutrophils (%) (Auto) 37L, Lymphocytes (%) (Auto) 44, Monocytes (%) (Auto) 11, Eosinophils (%) (Auto) 6, Basophils (%) (Auto) 1, Neutrophils # (Auto) 2.3, Lymphocytes # (Auto) 2.7, Monocytes # (Auto) 0.7, Eosinophils # (Auto) 0.4H, Basophils # (Auto) 0.1, Immature Granulocyte # (Auto) 0.0, Sodium Level 126L, Potassium Level 4.3, Chloride Level 99, Carbon Dioxide Level 18L, Anion Gap 9, Blood Urea Nitrogen 14, Creatinine 0.95, Estimat Glomerular Filtration Rate > 60, BUN/Creatinine Ratio 15, Glucose Level 69L, Calcium Level 8.3L, Corrected Calcium 8.5, Total Bilirubin 1.3H, Aspartate Amino Transf (AST/SGOT) 27, Alanine Aminotransferase (ALT/SGPT) 17, Alkaline Phosphatase 52, Total Protein 5.6L, Albumin 3.8 A/P: Assessment/Dx: Cardiomyopathy of unknown origin, Hypertension, Hyperlipidemia, Gallstones Plan: Echocardiogram shows an EF of 15-20 percent. I discussed at length with the patient. The nurse was also in the room. I recommended coronary angiography but the patient flatly refused it. He understands all the risks. I discussed about his cardiomyopathy and that he may need a LifeVest or ICD. However he still refused it. I told him that he could have dangerous rhythm from the bot zuleima chamber of the heart which could be fatal. He understands but would like only to be treated with medications. Will restart him on beta malathi, JUAN inhibitor. Restart aspirin. I offered to arrange follow-up with outpatient arranger assembler. However the patient told me that he would only follow with arranger assembler if one of our arranger assembler comes to [place] [facility]. If not he would l laura to follow with his primary care physician. Gallstones: No surgeries planned. Hypertension: JUAN inhibitor beta malathi, Hyperlipidemia, statin therapy Thank you for your consultation. Please call me if you have any questions. Yovana Back MD, FACP, FACC, FSCAI, FHRS, CCDS Interventional Cardiology Cardiac Electrophysiology Vascular Medicine and Endovascular Interventions Bailey BACK MD May 28, 2020 17:25
[2020-05-28 20:40] VITALS: BP 109/63
[2020-05-28] MEDS ORDERED: SIMvastatin 20 MG (ZOCOR) TAB PO SCH (21:00)
[2020-05-28] MEDS: SODIUM CHLORIDE 1 GM TABLET PO SCH (21:46)
[2020-05-28] MEDS: ENOXAPARIN 40 MG/0.4 ML (LOVENOX) SYR SC SCH (21:47)
[2020-05-29 00:15] VITALS: BP 124/71
[2020-05-29 04:51] VITALS: BP 115/80
[2020-05-29 05:47] LABS: HEMOGLOBIN 11.5 g/dL (13.3-17.7); MEAN PLATELET VOLUME 10.6 fL (9.0-12.2); WHITE BLOOD COUNT 5.7 10^3/uL (4.3-11.0)
[2020-05-29 06:04] LABS: ALBUMIN 3.7 GM/DL (3.2-4.5)
[2020-05-29 06:05] LABS: CHLORIDE 102 MMOL/L (98-107); SODIUM 129 MMOL/L (135-145)
[2020-05-29 06:07] LABS: GLUCOSE 72 MG/DL (70-105); TOTAL PROTEIN 5.7 GM/DL (6.4-8.2)
[2020-05-29 06:08] LABS: CARBON DIOXIDE 17 MMOL/L (21-32)
[2020-05-29 06:09] LABS: BILIRUBIN,TOTAL 1.1 MG/DL (0.1-1.0)
[2020-05-29 06:10] LABS: ALKALINE PHOSPHATASE 50 U/L (40-136)
[2020-05-29 06:11] LABS: CREATININE SERUM 0.83 MG/DL (0.60-1.30); GFR ESTIMATED > 60
[2020-05-29 06:12] LABS: BUN/CREATININE RATIO 12
[2020-05-29 06:14] LABS: ALANINE AMINOTRANSFERASE 14 U/L (0-55)
[2020-05-29 08:00] VITALS: BP 136/79
[2020-05-29] MEDS ORDERED: OMEGA 3 (FISH OIL) 1000 MG CAP PO SCH (09:00)
[2020-05-29] MEDS ORDERED: MAGNESIUM OXIDE (MAG-OX)400 MG TAB PO SCH (09:00)
[2020-05-29] MEDS ORDERED: FUROSEMIDE 20 MG (LASIX) TAB PO SCH (09:00)
[2020-05-29] MEDS ORDERED: POTASSIUM CITRATE 10 MEQ (UROCIT-K) NON-FORMULARY PO SCH (09:00)
[2020-05-29] MEDS ORDERED: ASPIRIN E.C. 81 MG (ECOTRIN) TAB PO SCH (09:00)
[2020-05-29] MEDS ORDERED: CARVEDILOL 6.25 MG (COREG) TAB PO SCH (09:00)
[2020-05-29] MEDS ORDERED: SIMvastatin 20 MG (ZOCOR) TAB PO SCH (09:00)
[2020-05-29] MEDS: PANTOPRAZOLE 40 MG (PROTONIX) TAB PO SCH (09:04)
[2020-05-29] MEDS: SODIUM CHLORIDE 1 GM TABLET PO SCH (09:04)
[2020-05-29] MEDS: NS IV 1000 ML 1,000 ML IV SCH (09:07)
[2020-05-29] MEDS ORDERED: PANT40TA52 PO (11:34)
--- NOTE | 2020-05-29 11:34 | Progress Note ---
JEAN CARLOS LANDEROS MED STUDENT 05/29/20 1134: Progress Note Patient is a 74 year old male who dmitted to [facility] from the ED for epigastric discomfort, reflux in back of the throat, nausea and diarrhea. He was seen for similar symptoms two weeks prior at [place]. Upon admission, his sodium was 123. He was started on IV normal saline to correct this. Abdominal workup showed gallstones, but no other evidence of gallbladder disease. He was placed on clear liquid diet during his stay. His pain improved in the hospital. Cardiology was consulted due to his cardiac history. ECHO done during stay showed EF 15% with moderate-severe mitral regurgitation and moderate-severe tricuspid regurgitation. Patient has no desires to undergo catheterization or surgeries at this point. Palliative care was consulted to discuss hospice care at home and his current code status. Plan is to discharge to home health and further discuss eventual transition to home hospice care. BRISA SLATER DO 05/30/20 0625: Supervisory-Addendum Brief Verification & Attestation Participated in pt care: history, MDM, physical Personally performed: exam, history, MDM, supervision of care Care discussed with: Medical Student Procedures: n/a Results interpretation: Verified all documentation Verification and Attestation of Medical Student E/M Service A medical student performed and documented this service in my presence. I reviewed and verified all information documented by the medical student and made modifications to such information, when appropriate. I personally performed the physical exam and medical decision making. Brisa Slater, May 30, 2020,06:25 JEAN CARLOS LANDEROS MED STUDENT May 29, 2020 11:34 BRISA SLATER DO May 30, 2020 06:25
--- NOTE | 2020-05-29 11:36 | Discharge Summary ---
Discharge Summary Hospital Course Was the Problem List Reviewed?: Yes Problems/Dx: (1) CHF (congestive heart failure), NYHA class III (2) Hyponatremia Status: Acute (3) Biliary colic Status: Acute (4) Multiple gallstones Status: Acute (5) Hypertension Status: Chronic (6) Coronary artery disease Status: Chronic Hospital Course Date of Admission: May 27, 2020 at 05:30 Admission Diagnosis : Family Physician/Provider: Sharyn Benavides Aprn Date of Discharge: 05/29/20 Discharge Diagnosis: Hyponatremia, CHF, biliary colic Hospital Course: Patient is a 74 year old male who dmitted to [facility] from the ED for epigastric discomfort, reflux in back of the throat, nausea and diarrhea. He was seen for similar symptoms two weeks prior at [place]. Upon admission, his sodium was 123. He was started on IV normal saline to correct this. Abdominal workup showed gallstones, but no other evidence of gallbladder disease. He was placed on clear liquid diet during his stay. His pain improved in the hospital. Cardiology was consulted due to his cardiac history. ECHO done during stay showed EF 15% with moderate-severe mitral regurgitation and moderate-severe tricuspid regurgitation. Patient has no desires to undergo catheterization or surgeries at this point. Palliative care was consulted to discuss hospice care at home and his current code status. Plan is to discharge to home health and further discuss eventual transition to home hospice care. JEAN CARLOS LANDEROS STUDENT Labs and Pending Lab Test: Laboratory Tests 05/29/20 05:25: White Blood Count 5.7, Red Blood Count 3.55L, Hemoglobin 11.5L, Hematocrit 34L, Mean Corpuscular Volume 95, Mean Corpuscular Hemoglobin 32, Mean Corpuscular Hemoglobin Concent 34, Red Cell Distribution Width 14.3, Platelet Count 307, Mean Platelet Volume 10.6, Sodium Level 129L, Potassium Level 4.0, Chloride Level 102, Carbon Dioxide Level 17L, Anion Gap 10, Blood Urea Nitrogen 10, Creatinine 0.83, Estimat Glomerular Filtration Rate > 60, BUN/Creatinine Ratio 12, Glucose Level 72, Calcium Level 8.0L, Corrected Calcium 8.2L, Total Bilirubin 1.1H, Aspartate Amino Transf (AST/SGOT) 27, Alanine Aminotransferase (ALT/SGPT) 14, Alkaline Phosphatase 50, Total Protein 5.7L, Albumin 3.7 Home Meds Active Pantoprazole Sodium 40 Mg Tablet.dr 40 Mg PO DAILY Reported Latanoprost 2.5 Ml Drops 1 Drop OU HS Sodium Chloride 1 Gm Tab 1 Gm PO BID Meloxicam 15 Mg Tablet 15 Mg PO DAILY Lisinopril 10 Mg Tablet 10 Mg PO BID PRN ONLY TAKES A DOSE WHEN BLOOD PRESSURE IS RAISED Fish Oil 1,000 mg Capsule ([place] 3 Polyunsat Fatty Acids) 1,000 Mg Cap 2,000 Mg PO DAILY Cetirizine HCl 10 Mg Tablet 10 Mg PO DAILY Low Dose Aspirin EC (Aspirin) 81 Mg Tablet.dr 81 Mg PO DAILY Simvastatin 20 Mg Tablet 20 Mg PO DAILY Magnesium Oxide 400 Mg Tablet 400 Mg PO DAILY Carvedilol 6.25 Mg Tablet 6.25 Mg PO DAILY Furosemide 20 Mg Tablet 20 Mg PO DAILY Potassium Citrate ER (Potassium Citrate) 10 Meq Tablet.er 10 Meq PO DAILY Assessment/Pt Instructions [facility] 1 week Discharge Planning: <30 minutes discharge planning Discharge Instructions Discharge Diet: Other Diet (fluid restriction) Discharge Physical Examination Vital Signs Vital Signs Date Time Temp Pulse Resp B/P (MAP) Pulse Ox O2 Delivery O2 Flow Rate FiO2 05/29/20 08:00 Room Air 05/29/20 08:00 36.2 83 18 136/79 (98) 100 General Appearance: No Apparent Distress, WD/WN, Chronically ill Allergies: Coded Allergies: Penicillins (Unverified Allergy, Unknown, 05/20/19) Discharge Summary Date of Admission May 27, 2020 at 05:30 Date of Discharge Discharge Date: May 29, 2020 Admission Diagnosis Fluid restriction PT OT Cardiology Surgery Discharge Diagnosis Monitor sodium DIspo? Clinical Quality Measures DVT/VTE Risk/Contraindication: Risk Factor Score Per Nursin RFS Level Per Nursing on Admit: 4+=Very High YANET DOMINGO DO May 29, 2020 11:36
--- NOTE | 2020-05-29 11:36 | D/C HH Face to Face Order ---
D/C Face to Face Orders Reconcile Patient Problems Problems Reviewed?: Yes Instructions for Patient Home Health Patient Instructions/FollowUp: [facility] 1 week to discuss hospice Physician to follow Patient: Kennedy Discharge Diet for Home: No Restrictions, other diet (fluid restriction 1000cc/day) Patient Problems: Hyponatremia Gallbladder disease refuses choly End stage cardiomyopathy refuses cardiac cath and cardiology f/u Patient Data-Allergies,Ht & Wt Patient Allergies: Coded Allergies: Penicillins (Unverified Allergy, Unknown, 05/20/19) Height (Feet): 5 Height (Inches): 8.00 Weight (Pounds): 196 Weight (Ounces): 0 Home Health Need/Face to Face Date of Face to Face: May 29, 2020 Clinical Findings: Generalized weakness and fatigue, Instability, Muscle weakness, Unsteady gait I have seen Pt [id number]: Yes Discharged To: Home Diagnosis/Conditions: Hyponatremia Gallbladder disease refuses choly End stage cardiomyopathy refuses cardiac cath and cardiology f/u Patient is Homebound due to: CognItive deficits, Yamile fall risk due to instabilty, Muscle weakness Homebound Status Due to the above stated illness, injury or surgical procedure (medical condition or diagnosis) and associated clinical findings, the patient is homebound because of his/her inability to leave home except with aid of a suppor tive device and/or person AND leaving the home requires a considerable and taxing effort or is medically contraindicated. Pt req the following assistanc: [facility] Nursing Orders Home Health Services Order: Nursing Services, Lead Die Molder-Evaluate & Treat, Physical Therapy-Evaluate & Treat Home Health Infusion Therapy Line Start Date: May 27, 2020 Certify Stmt I certify that this patient is under my care and that I, a nurse practitioner or a physician; a blacksmith assistant working with me, had a face to face encounter that - meets the physician face to face encounter requirements with this patient as dated. YANET DOMINGO DO May 29, 2020 11:36
--- NOTE | 2020-05-29 11:38 | NUR ---
Palliative Care RN consulted for education on CODE and resuscitation efforts. Patient has elected that he does not want to have compressions or intubation if it should be needed in the future. OUT OF HOSPITAL DNR signed by Dr. Slater. Living WILL and DPOA paperwork filled out and witnessed by Charlee Simms RN. Copies made for chart and 6 copies made for patient. Patient has arranged for his ride to be here at NOON. Orders being entered for resumption of [facility] with suggestion to have at home discussion for transition to Hospice in the near future for Cardiomyopathy with EF of 10-20%. Patient only wants medicine as intervention. He reports that his 3 step-children are helpful and "do quite a bit". Unsure of the accuracy of this statement. Addendum: 05/29/20 at 1146 by DON ANDREW RN This RN did take the telemetry off and notified ICU. I aslo disconnected the IVFs leaving the saline lock until discharge orders are complete.
--- NOTE | 2020-05-29 11:56 | NUR ---
This RN discontinued SL tip intact. Homeostasis achieved. Patient's ride is here and he just needs finalized discharge packet. TREY Chou notified.
--- NOTE | 2020-05-29 12:02 | Cardiology Progress Note ---
Cardiology SOAP Progress Note Subjective: no shortness of breath Objective: I&O/Vital Signs 05/29/20 05/29/20 05/29/20 05/29/20 00:15 01:00 04:51 07:00 Temp 36.7 36.2 Pulse 70 80 77 75 Resp 17 18 B/P (MAP) 124/71 (88) 115/80 (92) Pulse Ox 98 95 O2 Delivery Room Air Room Air 05/29/20 05/29/20 08:00 08:00 Temp 36.2 Pulse 83 Resp 18 B/P (MAP) 136/79 (98) Pulse Ox 100 O2 Delivery Room Air Room Air 05/29/20 00:00 Intake Total 1110 ml Balance 1110 ml Weight (Pounds): 196 Weight (Ounces): 0 Weight (Calculated Kilograms): 88.044525 Constitutional: AAO x 3 Respiratory: chest is bilaterally symmetric, lungs clear to auscultation Cardiovascular: regular rate-rhythm, S1 and S2 Gastrointestional: soft, audible bowel sounds Extremities: normal range of motion, non-tender, normal inspection Neurologic/Psychiatric: no motor/sensory deficits, alert, normal mood/affect, oriented x 3 Skin: normal color, warm/dry Results/Procedures: Labs Laboratory Tests 05/29/20 05:25: White Blood Count 5.7, Red Blood Count 3.55L, Hemoglobin 11.5L, Hematocrit 34L, Mean Corpuscular Volume 95, Mean Corpuscular Hemoglobin 32, Mean Corpuscular Hemoglobin Concent 34, Red Cell Distribution Width 14.3, Platelet Count 307, Mean Platelet Volume 10.6, Sodium Level 129L, Potassium Level 4.0, Chloride Level 102, Carbon Dioxide Level 17L, Anion Gap 10, Blood Urea Nitrogen 10, Creatinine 0.83, Estimat Glomerular Filtration Rate > 60, BUN/Creatinine Ratio 12, Glucose Level 72, Calcium Level 8.0L, Corrected Calcium 8.2L, Total Bilirubin 1.1H, Aspartate Amino Transf (AST/SGOT) 27, Alanine Aminotransferase (ALT/SGPT) 14, Alkaline Phosphatase 50, Total Protein 5.7L, Albumin 3.7 A/P: Assessment/Dx: Cardiomyopathy of unknown origin, Hypertension, Hyperlipidemia, Gallstones Plan: Echocardiogram shows an EF of 15-20 percent. Yesterday I discussed at length with the patient. The nurse was also in the room. I recommended coronary angio graphy but the patient flatly refused it. He understands all the risks. I discussed about his cardiomyopathy and that he may need a LifeVest or ICD. However he still refused it. I told him that he could have dangerous rhythm from the bottom chamber of the heart which could be fatal. He understands but would like only to be treated with medications. Restarted beta malathi, JUAN inhibitor. Restart aspirin. I offered to arrange follow-up with outpatient music executive. However the patient told me that he would only follow with music executive if one of our music executive comes to [place]. If not he would like to follow with his primary care physician. Gallstones: No surgeries planned. Hypertension: JUAN inhibitor beta malathi, Hyperlipidemia, statin therapy Thank you for your consultation. Please call me if you have any questions. Yovana Back MD, FACP, FACC, FSCAI, FHRS, CCDS Interventional Cardiology Cardiac Electrophysiology Vascular Medicine and Endovascular Interventions Bailey BACK MD May 29, 2020 12:02
[2020-05-29 12:08] VITALS: BP 136/79
== END 2020-05-29 12:08 | disposition home health service (06) | DRG 392 ==
LOC: EDUNIT# 03:36 → ER 03:40 → 4TH 05:30
PROVIDERS: ADMIT Internal Medicine; ATTEND Internal Medicine
DX: K29.70 Gastritis, unspecified, without bleeding (principal); E87.1 Hypo-osmolality and hyponatremia; I50.30 Unspecified diastolic (congestive) heart failure; E23.0 Hypopituitarism; I42.0 Dilated cardiomyopathy; R18.8 Other ascites; J90 Pleural effusion, not elsewhere classified; K80.20 Calculus of gallbladder without cholecystitis without obstruction; K21.9 Gastro-esophageal reflux disease without esophagitis; R19.7 Diarrhea, unspecified; I11.0 Hypertensive heart disease with heart failure; I25.10 Atherosclerotic heart disease of native coronary artery without angina pectoris; I25.2 Old myocardial infarction; I08.1 Rheumatic disorders of both mitral and tricuspid valves; E78.00 Pure hypercholesterolemia, unspecified; K74.60 Unspecified cirrhosis of liver; E86.0 Dehydration; J30.2 Other seasonal allergic rhinitis; E78.5 Hyperlipidemia, unspecified; Z95.1 Presence of aortocoronary bypass graft; Z79.82 Long term (current) use of aspirin; Z79.02 Long term (current) use of antithrombotics/antiplatelets; Z68.30 Body mass index [BMI] 30.0-30.9, adult; Z87.891 Personal history of nicotine dependence
CPT/HCPCS: 36415; 74177; 76705; 80053; 80320; 81000; 83690; 83735; 85025; 85027; 93306; 96361; 96374; 96375

== ENCOUNTER → 2020-06-13 | Outpatient (CLI) | payer MEDICARE, OTHER ==
[~2020-06-13] MED LIST changes: +LATA2.5D5 OU; +PANT40TA52 PO
[2020-06-13 11:05] LABS: CREATININE SERUM 1.52 MG/DL (0.60-1.30); POTASSIUM 4.9 MMOL/L (3.6-5.0)
[2020-06-13 11:06] LABS: CALCIUM 9.4 MG/DL (8.5-10.1)
== END ==
LOC: LAB FS 10:21
PROVIDERS: ATTEND Nurse Practitioner Family
DX: E87.1 Hypo-osmolality and hyponatremia (principal)
CPT/HCPCS: 36415; 80048

== ENCOUNTER 2020-06-14 15:09 | Emergency (ER) | payer MEDICARE, OTHER ==
[~2020-06-14] VITALS: Ht 172.7 cm; Wt 80.9 kg
[2020-06-14] MEDS ORDERED: NS IV 1000 ML 1,000 ML ONE (15:20)
[2020-06-14] MEDS ORDERED: NS IV 1000 ML 1,000 ML IV ONE (15:20)
[2020-06-14 15:39] LABS: BASOPHILS % (AUTO) 0 % (0-10); EOSINOPHILS # (AUTO) 0.1 10^3/uL (0.0-0.3); EOSINOPHILS % (AUTO) 1 % (0-10); HEMATOCRIT 38 % (40-54); LYMPHOCYTES # (AUTO) 2.9 X 10^3 (1.0-4.0); LYMPHOCYTES % (AUTO) 33 % (12-44); MEAN CORPUSCULAR HEMOGLOBIN 32 PG (25-34); MEAN CORPUSCULAR HGB CONC 34 G/DL (32-36); MEAN CORPUSCULAR VOLUME 94 FL (80-99); MEAN PLATELET VOLUME 11.3 FL (7.4-10.4); MONOCYTES # (AUTO) 0.9 X 10^3 (0.0-1.0); MONOCYTES % (AUTO) 10 % (0-12); NEUTROPHILS # (AUTO) 4.8 X 10^3 (1.8-7.8); NEUTROPHILS % (AUTO) 55 % (42-75); PLATELET COUNT 224 10^3/uL (130-400); WHITE BLOOD COUNT 8.7 10^3/uL (4.3-11.0)
--- NOTE | 2020-06-14 15:44 | ED General ---
General Chief Complaint: Dizziness/Syncope Stated Complaint: DIZZINESS Nursing Triage Note: Patient presents to the ED with c/o of dizziness. He reports that he has chronic low sodium and had labs done yesterday. He states that he, "needs fluids" and doesn't want to be admitted to the hospital. Nursing Sepsis Screen: No Definite Risk History of Present Illness Date Seen by Provider: Jun 14, 2020 Time Seen by Provider: 15:36 Initial Comments Patient presenting to the emergency department for evaluation of dizziness in that he describes it as a lightheaded sensation. He said that he came to get labs checked yesterday he was feeling lightheaded the time and wouldn't allow him to get IV fluids. He said that the lightheaded sensation has worsened today but he is still able to ambulate and has not passed out. Patient denies any pain fevers chills nausea vomiting shortness of breath or leg edema. Patient says that for check anything that it will be abnormal and that I would want him to admit him to the hospital but he is going to refuse to be admitted to the hospital or have further testing done as he says that he does not want anything done. It appears that he was recently admitted the hospital twice and home [facility] and home health was started. He says that he has been recommended to get bypass surgery. He is quite bradycardic as he has PVCs on every other beat and on palpation his heart rate is 30. Allergies and Home Medications Allergies Coded Allergies: Penicillins (Unverified Allergy, Unknown, 05/20/19) Home Medications Aspirin 81 Mg Tablet.dr, 81 MG PO DAILY, (Reported) Carvedilol 6.25 Mg Tablet, 6.25 MG PO DAILY, (Reported) Cetirizine HCl 10 Mg Tablet, 10 MG PO DAILY, (Reported) Furosemide 20 Mg Tablet, 20 MG PO DAILY, (Reported) Latanoprost 2.5 Ml Drops, 1 DROP OU HS, (Reported) Lisinopril 10 Mg Tablet, 10 MG PO BID PRN for BLOOD PRESSURE, (Reported) ONLY TAKES A DOSE WHEN BLOOD PRESSURE IS RAISED Magnesium Oxide 400 Mg Tablet, 400 MG PO DAILY, (Reported) Meloxicam 15 Mg Tablet, 15 MG PO DAILY, (Reported) [place] 3 Polyunsat Fatty Acids 1,000 Mg Cap, 2,000 MG PO DAILY, (Reported) Pantoprazole Sodium 40 Mg Tablet.dr, 40 MG PO DAILY Prescribed by: YANET DOMINGO on 05/29/20 1134 Potassium Citrate 10 Meq Tablet.er, 10 MEQ PO DAILY, (Reported) Simvastatin 20 Mg Tablet, 20 MG PO DAILY, (Reported) Sodium Chloride 1 Gm Tab, 1 GM PO BID, (Reported) Patient Home Medication List Home Medication List Reviewed: Yes Review of Systems Review of Systems Constitutional: dizziness EENTM: no symptoms reported Respiratory: no symptoms reported Cardiovascular: no symptoms reported Gastrointestinal: no symptoms reported Musculoskeletal: no symptoms reported Skin: no symptoms reported Psychiatric/Neurological: No Symptoms Reported All Other Systems Reviewed Negative Unless Noted: Yes Past Bbbomvw-Ocplbt-Vnujdg Hx Patient Social History Alcohol Use: Denies Use Recreational Drug Use: No Smoking Status: Never a Smoker 2nd Hand Smoke Exposure: No Recent Foreign Travel: No Contact w/Someone Who Travel: No Recent Infectious Disease Expo: No Recent Hopitalizations: Yes Physical Abuse: No Sexual Abuse: No Mistreated: No Fear: No Immunizations Up To Date Date of Pneumonia Vaccine: May 08, 2019 Seasonal Allergies Seasonal Allergies: Yes Past Medical History Surgeries: Yes CABG Respiratory: No Cardiac: Yes Chronic Edema/Swelling, Coronary Artery Disease, Hypertension Neurological: No Genitourinary: No Gastrointestinal: No Musculoskeletal: No Endocrine: Yes (Hx Pituitary tumor along with hyponatremia) Pituitary Disease HEENT: No Cancer: No Psychosocial: No Integumentary: No Blood Disorders: No Family Medical History Hypertension 19 FATHER No Pertinent Family Hx Physical Exam Vital Signs Vital Signs - First Documented 06/14/20 15:15 Temp 36.0 Pulse 61 Resp 12 B/P (MAP) 129/79 (96) Pulse Ox 95 O2 Delivery Room Air Capillary Refill : Less Than 3 Seconds Height, Weight, BMI Height: 5'8.00" Weight: 196lbs. 0oz. 88.510060hh; 27.00 BMI Method:Stated General Appearance: No Apparent Distress, Chronically ill HEENT: PERRL/EOMI Neck: Supple Respiratory: Lungs Clear, No Respiratory Distress Cardiovascular: Bradycardia Gastrointestinal: Non Tender, Soft Back: Normal Inspection Extremity: Normal Capillary Refill, No Pedal Edema Neurologic/Psychiatric: Alert, Oriented x3 Skin: Warm/Dry Progress/Results/Core Measures Suspected Sepsis Recent Fever Within 48 Hours: No Infection Criteria Present: None New/Unexplained Altered Menta: No Sepsis Screen: No Definite Risk SIRS Temperature: Pulse: 61 Respiratory Rate: 12 Laboratory Tests 06/14/20 15:15: White Blood Count 8.7 Blood Pressure 129 /79 Mean: 96 Laboratory Tests 06/14/20 15:15: Creatinine 1.60H, INR Comment 1.3, Platelet Count 224, Total Bilirubin 1.0 Results/Orders Lab Results Laboratory Tests Test 06/14/20 15:15 Range/Units White Blood Count 8.7 4.3-11.0 10^3/uL Red Blood Count 4.08 L 4.35-5.85 10^6/uL Hemoglobin 13.0 L 13.3-17.7 G/DL Hematocrit 38 L 40-54 % Mean Corpuscular Volume 94 80-99 FL Mean Corpuscular Hemoglobin 32 25-34 PG Mean Corpuscular Hemoglobin Concent 34 32-36 G/DL Red Cell Distribution Width 16.5 H 10.0-14.5 % Platelet Count 224 130-400 10^3/uL Mean Platelet Volume 11.3 H 7.4-10.4 FL Immature Granulocyte % (Auto) 0 % Neutrophils (%) (Auto) 55 42-75 % Lymphocytes (%) (Auto) 33 12-44 % Monocytes (%) (Auto) 10 0-12 % Eosinophils (%) (Auto) 1 0-10 % Basophils (%) (Auto) 0 0-10 % Neutrophils # (Auto) 4.8 1.8-7.8 X 10^3 Lymphocytes # (Auto) 2.9 1.0-4.0 X 10^3 Monocytes # (Auto) 0.9 0.0-1.0 X 10^3 Eosinophils # (Auto) 0.1 0.0-0.3 10^3/uL Basophils # (Auto) 0.0 0.0-0.1 10^3/uL Immature Granulocyte # (Auto) 0.0 0.0-0.1 10^3/uL Prothrombin Time 16.4 H 12.2-14.7 SEC INR Comment 1.3 0.8-1.4 Activated Partial Thromboplast Time 31 24-35 SEC Sodium Level 134 L 135-145 MMOL/L Potassium Level 4.6 3.6-5.0 MMOL/L Chloride Level 99 98-107 MMOL/L Carbon Dioxide Level 25 21-32 MMOL/L Anion Gap 10 5-14 MMOL/L Blood Urea Nitrogen 31 H 7-18 MG/DL Creatinine 1.60 H 0.60-1.30 MG/DL Estimat Glomerular Filtration Rate 42 BUN/Creatinine Ratio 19 Glucose Level 102 70-105 MG/DL Calcium Level 9.5 8.5-10.1 MG/DL Corrected Calcium 8.5-10.1 MG/DL Magnesium Level 2.5 H 1.6-2.4 MG/DL Total Bilirubin 1.0 0.1-1.0 MG/DL Aspartate Amino Transf (AST/SGOT) 96 H 5-34 U/L Alanine Aminotransferase (ALT/SGPT) 26 0-55 U/L Alkaline Phosphatase 63 40-136 U/L Troponin I < 0.30 <0.30 NG/ML Pro-B-Type Natriuretic Peptide 85111.0 H <75.0 PG/ML Total Protein 6.7 6.4-8.2 GM/DL Albumin 4.7 H 3.2-4.5 GM/DL My Orders Orders - KIAN OSEI DO Ns Iv 1000 Ml (Sodium Chloride 0.9%) (06/14/20 15:20) Cbc With Automated Diff (06/14/20 15:31) Comprehensive Metabolic Panel (06/14/20 15:31) Partial Thromboplastin Time (06/14/20 15:31) Probnp Fs (06/14/20 15:31) Protime With Inr (06/14/20 15:31) Magnesium (06/14/20 15:31) Troponin I Fs (06/14/20 15:31) Iv/Invasive Line Insertion .IV start (06/14/20 15:31) Ns Iv 1000 Ml (Sodium Chloride 0.9%) (06/14/20 15:20) Ekg Tracing (06/14/20 15:15) Medications Given in ED Current Medications Medications Dose Ordered Sig/Kamille Route Start Time Stop Time Status Last Admin Dose Admin Sodium Chloride 1,000 ml @ 999 mls/hr Q1H1M ONCE IV 06/14/20 15:20 06/14/20 16:20 06/14/20 15:20 999 MLS/HR Vital Signs/I&O 06/14/20 15:15 Temp 36.0 Pulse 61 Resp 12 B/P (MAP) 129/79 (96) Pulse Ox 95 O2 Delivery Room Air Capillary Refill : Less Than 3 Seconds Blood Pressure Mean: 96 Progress Note : Progress Note I told patient that he is quite ill and is bradycardic and can possibly from his bradycardia. He verbalized understanding and said that he is okay with this and he wants to in peace and does not want to go back to a hospital again. He said that he is not on any medications it so his heart rate down and on the last discharge summary it appears that he is on carvedilol. I will give him a liter of fluids and then discuss his situation again with him. Patient's BNP is higher than it has ever been before in the records in my charge and I told him that his heart is failing and he is likely to pass away from either his heart failure or his bradycardia. Patient says that he is not on hospice yet but is trying to get set up and he is not willing to stay in the hospital and wants to go home. He said he will call his family to keep an eye on him today but has no plans for aggressive treatment. I told him that stopping his Coreg and Lasix may make him feel better. Patient will be discharged in stable condition at the patient's request and he does make his own medical decisions. Patient verbalized understanding of his poor health and likely outcome and said that he is ready if it is his time. Departure Impression Primary Impression: Dizziness Additional Impressions: CHF exacerbation Bradycardia Disposition: 01 HOME, SELF-CARE Condition: Stable Departure-Patient Inst. Referrals: [facility]/ (PCP) Primary Care Physician NOHEMY HARRY APRN (Family) Primary Care Physician Patient Instructions: Heart Failure, Adult (DC) Add. Discharge Instructions: STOP THE COREG AND LASIX. DRINK PLENTY OF FLUIDS. THANK YOU! All discharge instructions reviewed with patient and/or family. Voiced understanding. KIAN OSEI DO Jun 14, 2020 15:44
[2020-06-14 15:46] LABS: INR 1.3 (0.8-1.4); PROTHROMBIN TIME PATIENT 16.4 SEC (12.2-14.7)
[2020-06-14 16:03] LABS: ALANINE AMINOTRANSFERASE 26 U/L (0-55); ALKALINE PHOSPHATASE 63 U/L (40-136); BUN/CREATININE RATIO 19; CALCIUM 9.5 MG/DL (8.5-10.1); CARBON DIOXIDE 25 MMOL/L (21-32); CHLORIDE 99 MMOL/L (98-107); GFR ESTIMATED 42; GLUCOSE 102 MG/DL (70-105); MAGNESIUM 2.5 MG/DL (1.6-2.4); POTASSIUM 4.6 MMOL/L (3.6-5.0); SODIUM 134 MMOL/L (135-145)
[2020-06-14 16:04] LABS: ALBUMIN 4.7 GM/DL (3.2-4.5); TOTAL PROTEIN 6.7 GM/DL (6.4-8.2)
[2020-06-14 16:29] VITALS: BP 135/75
== END 2020-06-14 16:29 | disposition home or self-care (01) ==
LOC: EDUNIT# 15:09 → ER FS 15:11
DX: R42 Dizziness and giddiness (principal); I11.0 Hypertensive heart disease with heart failure; R00.1 Bradycardia, unspecified; I50.9 Heart failure, unspecified; Z88.0 Allergy status to penicillin; Z95.1 Presence of aortocoronary bypass graft; Z82.49 Family history of ischemic heart disease and other diseases of the circulatory system; Z79.82 Long term (current) use of aspirin
CPT/HCPCS: 36415; 80053; 83735; 83880; 84484; 85025; 85610; 85730; 93005